=== PATIENT | female | born 1945 | race American Indian/Alaskan Native ===

== ENCOUNTER → 2016-05-24 | Outpatient (CLI) | payer MEDICARE, BC, OTHER ==
--- NOTE | 2016-05-24 16:17 | US ---
EXAMINATION: Limited soft tissue ultrasound of the neck HISTORY: Pain COMPARISON: CT dated 11/06/2014 TECHNIQUE: Grayscale and color Doppler images obtained within the region of concern in the left post erior auricular region. FINDINGS/IMPRESSION: There is no abnormal mass or fluid collection noted within the region of concern. No skin thickenin g or abnormal color Doppler flow identified.
== END ==
LOC: MW.US 10:30
PROVIDERS: ATTEND Nurse Practitioner Family
DX: R52 Pain, unspecified (principal)
CPT/HCPCS: 76536-LT

== ENCOUNTER 2016-11-20 21:39 | Inpatient (IN) | payer MEDICARE, BC, OTHER ==
[2016-11-20] MEDS ORDERED: Sodium Chloride 0.9% 1,000 ML IV ONE (22:25)
--- NOTE | 2016-11-20 22:34 | EDM.PDOC ---
ED HPI GENERAL MEDICAL PROBLEM - General Chief Complaint: General Stated Complaint: tremor, decreased po intake Time Seen by Provider: 11/20/16 21:52 Source of Information: Reports: Patient, Family History Limitations: Reports: No Limitations - History of Present Illness INITIAL COMMENTS - FREE TEXT/NARRATIVE: HISTORY AND PHYSICAL: History of present illness: [71-year-old female with a history of Alzheimer's disease on Aricept , with a history of tremor, now brought in for evaluation of recurrent nausea, inability to tolerate by mouth food and fluids for days. family states she gets nausea when she thinks about food. patient has no productive cough or fever. She has no chest pain or shortness of breath. She denies abdominal pain or distention.She has normal bowel and bladder habits.no focal weakness Review of systems: As per history of present illness and below otherwise all systems reviewed and negative. Past medical history: As per history of present illness and as reviewed below otherwise noncontributory. Surgical history: As per history of present illness and as reviewed below otherwise noncontributory. Social history: No reported history of drug or alcohol abuse. Family history: As per history of present illness and as reviewed below otherwise noncontributory. Physical exam:chronically weak appearing 71-year-old female in no acute distress alert communicative cooperative and appropriate HEENT: Atraumatic, normocephalic, pupils reactive, negative for conjunctival pallor or scleral icterus, mucous membranes mildly dry, throat clear, neck supple, nontender, trachea midline. Lungs: Clear to auscultation, breath sounds equal bilaterally, chest nontender. Heart: S1S2, regular, negative for clicks, rubs, or JVD. Abdomen: Soft, nondistended, nontender.normal bowel sounds Negative for masses or hepatosplenomegaly. Negative for costovertebral tenderness. Pelvis: Stable nontender. Genitourinary: Deferred. Rectal: Deferred. Extremities: Atraumatic, negative for cords or calf pain. Neurovascular unremarkable. Neuro: Awake, alert, oriented. Cranial nerves II through XII unremarkable. Cerebellum unremarkable. Motor and sensory unremarkable throughout. Exam nonfocal.patient with intermittent resting tremor Diagnostics: [EKG with normal sinus rhythm at 51 normal axis no STEM Iinterpreted by me Chest x-ray chronic changes no acute disease interpreted by me kUB unremarkable with no evidence of obstruction. Interpreted by me] Therapeutics: [IV fluids and Zofran administered] Impression: [] Plan: [signs and symptoms consistent with chronic tremor which waxes and wanes. Patient appears to have an anxiety component to her presentation. She has no actual vomitingbut spits in emesis pouch. Vital signs are stable and unremarkableHemoglobin 10.2 but this is improved from 9.0 on November 06. Her sodium is mildly low at 1:30 but this is down from 142 on 06 November. Potassium is 5.2 mildly elevated, CO2 is 20 consistent with very mild metabolic acidosis. Creatinine stable at 1.7 unchanged from November 05. Results discussed with length at family and they feel it is impossible for the patient to return home because sheis unable to tolerate by mouth intake. Discussed withDr. 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 Treatments LINE ANALYST: Reports: IV/IO Other Treatments LINE ANALYST: g. 18 left AC chest & left foot Pain Score (Numeric/FACES): 5 - Related Data Allergies Allergy/AdvReac Type Severity Reaction Status Date / Time Dairy Products Allergy Diarrhea Verified 11/20/16 21:51 meperidine HCl [From Demerol] Allergy Hallucinati Verified 11/20/16 21:51 ons IVP Dye Allergy Hives Uncoded 11/20/16 21:51 Home Meds: Home Meds Acetaminophen with Codeine [Acetamin-Codein 300-30 mg/12.5] 1 tab PO TID [History] Cyanocobalamin (Vitamin B12) [Vitamin B12] 1 injection IM ASDIRECTED 11/20/16 [ History] Donepezil [Aricept] 10 mg PO BEDTIME 11/20/16 [History] Esomeprazole Magnesium [Nexium 24Hr] 22.3 mg PO DAILY 11/20/16 [History] Estradiol Valerate 20 mg IM ASDIRECTED 11/20/16 [History] Furosemide 20 mg PO DAILY 11/20/16 [History] Latanoprost [Latanoprost] 1 drop EYEBOTH DAILY 11/20/16 [History] Lisinopril [Lisinopril] 1 tab PO DAILY 11/20/16 [History] Memantine HCl 5 mg PO BEDTIME 11/20/16 [History] Mirtazapine 15 mg PO BEDTIME 11/20/16 [History] Past Medical History HEENT History: Reports: Glaucoma Cardiovascular History: Reports: Hypertension Respiratory History: Reports: None Other Respiratory History: 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 Dimentia Psychiatric History: Reports: Anxiety, Depression Other Psychiatric History: hx: situational depression Endocrine/Metabolic History: Reports: Diabetes, Type II Hematologic History: Reports: None Immunologic History: Reports: None Oncologic (Cancer) History: Reports: None Dermatologic History: Reports: None - Past Surgical History HEENT Surgical History: Reports: None Other Female Surgeries/Procedures: Return to surgery post hysterectomy due to "clot formation" Other Musculoskeletal Surgeries/Procedures:: Left Rotator Cuff Repair Social & Family History - Family History Family Medical History: Noncontributory - Tobacco Use Smoking Status *Q: Former Smoker Years of Tobacco use: 15 Used Tobacco, but Quit: No Month Tobacco Last Used: 2003 - Caffeine Use Caffeine Use: Reports: Coffee - Recreational Drug Use Recreational Drug Use: No Drug Use in Last 12 Months: No ED ROS GENERAL - Review of Systems Review Of Systems: See Below (history of present illness) ED EXAM, GENERAL - Physical Exam Exam: See Below (history of present illness) Course - Vital Signs Last Recorded V/S: Last Vital Signs Temp 36.3 C 11/21/16 04:00 Pulse 54 L 11/21/16 04:00 Resp 16 11/21/16 04:00 BP 126/49 L 11/21/16 04:00 Pulse Ox 92 L 11/21/16 04:00 - Orders/Labs/Meds Orders: Active Orders 24 hr Category Date Time Status Peripheral IV Care [RC] . DIRECTED Care 11/20/16 22:25 Active Chest 1V Frontal [CR] Stat Exams 11/20/16 22:25 Taken Peripheral IV Insertion Adult [OM.PC] Stat Oth 11/20/16 22:25 Ordered Medication Orders Sodium Chloride (Normal Saline) 1,000 mls @ 125 mls/hr IV STAT [facility] Last Admin: 11/21/16 00:33 Dose: 125 mls/hr Sodium Chloride (Normal Saline) 1,000 mls @ 125 mls/hr IV ASDIRECTED [facility] Insulin Aspart (Novolog) 0 unit SUBCUT TIDAC NAEL PRN Reason: Protocol Ondansetron HCl (Zofran) 4 mg IVPUSH Q3H PRN PRN Reason: Nausea/Vomiting Labs: Laboratory Tests 11/20/16 11/20/16 11/20/16 Range/Units 22:15 22:37 22:37 WBC 5.64 (4.0-11.0) K/uL RBC 3.42 L (4.30-5.90) M/uL Hgb 10.2 L (12.0-16.0) g/dL Hct 30.1 L (36.0-46.0) % MCV 88.0 (80.0-98.0) fL MCH 29.8 (27.0-32.0) pg MCHC 33.9 (31.0-37.0) g/dL RDW Std Deviation 41.8 (28.0-62.0) fl RDW Coeff of Dyan 13 (11.0-15.0) % Plt Count 194 (150-400) K/uL MPV 10.30 (7.40-12.00) fL Neut % (Auto) 56.6 (48.0-80.0) % Lymph % (Auto) 31.7 (16.0-40.0) % [place] % (Auto) 7.8 (0.0-15.0) % Eos % (Auto) 3.0 (0.0-7.0) % Baso % (Auto) 0.9 (0.0-1.5) % Neut # (Auto) 3.2 (1.4-5.7) K/uL Lymph # (Auto) 1.8 (0.6-2.4) K/uL [place] # (Auto) 0.4 (0.0-0.8) K/uL Eos # (Auto) 0.2 (0.0-0.7) K/uL Baso # (Auto) 0.1 (0.0-0.1) K/uL Nucleated RBC % 0.0 /100WBC Nucleated RBCs # 0 K/uL Sodium 130 L (136-146) mmol/L Potassium 5.2 H (3.5-5.1) mmol/L Chloride 101 (98-110) mmol/L Carbon Dioxide 20 L (21-31) mmol/L BUN 23 (6.0-23.0) mg/dL Creatinine 1.7 H (0.6-1.5) mg/dL Est Cr Clr Drug Dosing 24.38 mL/min Estimated GFR (MDRD) 29.5 ml/min Glucose 86 (60-110) mg/dL Calcium 9.2 (8.8-10.8) mg/dL Total Bilirubin 0.5 (0.1-1.5) mg/dL AST 17 (5-40) IU/L ALT 11 (8-54) IU/L Alkaline Phosphatase 65 (40-150) Troponin I (0.0-0.29) NG/ML Total Protein 7.0 (6.0-8.0) g/dL Albumin 3.9 (3.4-4.8) g/dL Globulin 3.1 (2.0-3.5) g/dL Albumin/Globulin Ratio 1.3 (1.3-2.8) TSH 3rd Generation 2.63 (0.47-5.0) uIU/mL Urine Color YELLOW Urine Appearance CLEAR Urine pH 7.5 (5.0-8.0) Ur Specific [place] 1.010 (1.001-1.035) Urine Protein NEGATIVE (NEGATIVE) mg/dL Urine Glucose (UA) NEGATIVE (NEGATIVE) mg/dL Urine Ketones NEGATIVE (NEGATIVE) mg/dL Urine Occult Blood NEGATIVE (NEGATIVE) Urine Nitrite NEGATIVE (NEGATIVE) Urine Bilirubin NEGATIVE (NEGATIVE) Urine Urobilinogen 0.2 (<2.0) EU/dL Ur Leukocyte Esterase NEGATIVE (NEGATIVE) Urine RBC 0-1 (0-2/HPF) Urine WBC 0-1 (0-5/HPF) Ur Epithelial Cells OCCASIONAL (NONE-FEW) Urine Bacteria RARE (NEGATIVE) 11/20/16 Range/Units 22:37 WBC (4.0-11.0) K/uL RBC (4.30-5.90) M/uL Hgb (12.0-16.0) g/dL Hct (36.0-46.0) % MCV (80.0-98.0) fL MCH (27.0-32.0) pg MCHC (31.0-37.0) g/dL RDW Std Deviation (28.0-62.0) fl RDW Coeff of Dyan (11.0-15.0) % Plt Count (150-400) K/uL MPV (7.40-12.00) fL Neut % (Auto) (48.0-80.0) % Lymph % (Auto) (16.0-40.0) % [place] % (Auto) (0.0-15.0) % Eos % (Auto) (0.0-7.0) % Baso % (Auto) (0.0-1.5) % Neut # (Auto) (1.4-5.7) K/uL Lymph # (Auto) (0.6-2.4) K/uL [place] # (Auto) (0.0-0.8) K/uL Eos # (Auto) (0.0-0.7) K/uL Baso # (Auto) (0.0-0.1) K/uL Nucleated RBC % /100WBC Nucleated RBCs # K/uL Sodium (136-146) mmol/L Potassium (3.5-5.1) mmol/L Chloride (98-110) mmol/L Carbon Dioxide (21-31) mmol/L BUN (6.0-23.0) mg/dL Creatinine (0.6-1.5) mg/dL Est Cr Clr Drug Dosing mL/min Estimated GFR (MDRD) ml/min Glucose (60-110) mg/dL Calcium (8.8-10.8) mg/dL Total Bilirubin (0.1-1.5) mg/dL AST (5-40) IU/L ALT (8-54) IU/L Alkaline Phosphatase (40-150) Troponin I < 0.10 (0.0-0.29) NG/ML Total Protein (6.0-8.0) g/dL Albumin (3.4-4.8) g/dL Globulin (2.0-3.5) g/dL Albumin/Globulin Ratio (1.3-2.8) TSH 3rd Generation (0.47-5.0) uIU/mL Urine Color Urine Appearance Urine pH (5.0-8.0) Ur Specific [place] (1.001-1.035) Urine Protein (NEGATIVE) mg/dL Urine Glucose (UA) (NEGATIVE) mg/dL Urine Ketones (NEGATIVE) mg/dL Urine Occult Blood (NEGATIVE) Urine Nitrite (NEGATIVE) Urine Bilirubin (NEGATIVE) Urine Urobilinogen (<2.0) EU/dL Ur Leukocyte Esterase (NEGATIVE) Urine RBC (0-2/HPF) Urine WBC (0-5/HPF) Ur Epithelial Cells (NONE-FEW) Urine Bacteria (NEGATIVE) Meds: Medications Generic Name Dose Route Start Last Admin Trade Name Freq PRN Reason Stop Dose Admin Sodium Chloride 1,000 mls @ 125 mls/hr 11/21/16 00:30 11/21/16 00:33 Normal Saline IV 125 mls/hr STAT NAEL Administration Sodium Chloride 1,000 mls @ 125 mls/hr 11/21/16 08:30 Normal Saline IV ASDIRECTED NAEL Insulin Aspart 0 unit 11/21/16 07:30 Novolog SUBCUT TIDAC [facility] Protocol Ondansetron HCl 4 mg 11/21/16 01:32 Zofran IVPUSH Q3H PRN Nausea/Vomiting Discontinued Medications Generic Name Dose Route Start Last Admin Trade Name Freq PRN Reason Stop Dose Admin Sodium Chloride 1,000 mls @ 999 mls/hr 11/20/16 22:25 11/20/16 22:48 Normal Saline IV 11/20/16 23:25 999 mls/hr .Bolus ONE Administration Sodium Chloride 1,000 mls @ 125 mls/hr 11/21/16 01:31 11/21/16 02:35 Normal Saline IV 11/21/16 09:30 Not Given ASDIRECTED ONE Lorazepam 0.5 mg 11/21/16 00:14 11/21/16 00:33 Ativan IVPUSH 11/21/16 00:15 0.5 mg ONETIME ONE Administration Ondansetron HCl 4 mg 11/20/16 23:37 11/20/16 23:48 Zofran IVPUSH 11/20/16 23:38 4 mg ONETIME ONE Administration Departure - Departure Time of Disposition: 04:00 Disposition: Refer to Observation Condition: Fair Clinical Impression: Metabolic acidosis, Hyponatremia, Intractable nausea and vomiting - Discharge Information - My Orders Last 24 Hours: My Active Orders 11/20/16 22:25 Peripheral IV Care [RC] . DIRECTED Chest 1V Frontal [CR] Stat Peripheral IV Insertion Adult [OM.PC] Stat - Assessment/Plan Last 24 Hours: My Active Orders 11/20/16 22:25 Peripheral IV Care [RC] . DIRECTED Chest 1V Frontal [CR] Stat Peripheral IV Insertion Adult [OM.PC] Stat
[2016-11-20] MEDS ORDERED: Ondansetron 4 MG/2 ML SDV IVPUSH ONE (23:37)
[2016-11-21] MEDS ORDERED: LORazepam 2 MG/ML MDV IVPUSH ONE (00:14)
[2016-11-21] MEDS: Sodium Chloride 0.9% 1,000 ML IV SCH ×3 (00:33→16:45)
[2016-11-21] MEDS ORDERED: Sodium Chloride 0.9% 1,000 ML IV ONE (01:31)
[2016-11-21] MEDS ORDERED: Ondansetron 4 MG/2 ML SDV IVPUSH PRN (01:32)
[2016-11-21] MEDS ORDERED: Sodium Chloride 0.9% 1,000 ML IV SCH (08:30)
[2016-11-21] MEDS: Insulin Aspart 100 Units/ML 3 ML Pen SUBCUT SCH ×3 (09:24→17:17)
--- NOTE | 2016-11-21 14:12 | PCM.HP ---
H&P History of Present Illness - General Date of Service: 11/21/16 Admit Problem/Dx: Admission Diagnosis/Problem Admission Diagnosis/Problem Hyponatremia Source of Information: Patient History Limitations: Reports: No Limitations - History of Present Illness Initial Comments - Free Text/Narative: 71 yo fm admitted for generalized weakness and tremors. Patient was brought in by family to ED. She was having ongoing tremors in the ED. Family and patient state that for the past 2 weeks she has not been feeling well. She has been weak , confused and has had no appetite. Even looking at food makes her want to vomit. After receiving fluids in ED she was doing much better. She was found to have hyponatremia. She also complains of epigastric and left flank pain. This pain has been going on for 2 weeks. SHe was being treated for some type of infection by her pcp where she was going in daily for rocephin shots. She sees Dr. Andres as her PCP. Patient is doing much better today. She has eaten 2 full meals without difficulty. Tremors also improving. She is still having suprapubic pain and left flank pain. chest & left foot Pain Score (Numeric/FACES): 5 - Related Data Allergies/Adverse Reactions: Allergies Allergy/AdvReac Type Severity Reaction Status Date / Time Dairy Products Allergy Diarrhea Verified 11/20/16 21:51 meperidine HCl [From Demerol] Allergy Hallucinati Verified 11/20/16 21:51 ons IVP Dye Allergy Hives Uncoded 11/20/16 21:51 Home Medications: Home Meds Acetaminophen with Codeine [Acetamin-Codein 300-30 mg/12.5] 1 tab PO TID [History] Cyanocobalamin (Vitamin B12) [Vitamin B12] 1 injection IM ASDIRECTED 11/20/16 [ History] Donepezil [Aricept] 10 mg PO BEDTIME 11/20/16 [History] Esomeprazole Magnesium [Nexium 24Hr] 22.3 mg PO DAILY 11/20/16 [History] Estradiol Valerate 20 mg IM ASDIRECTED 11/20/16 [History] Furosemide 20 mg PO DAILY 11/20/16 [History] Latanoprost [Latanoprost] 1 drop EYEBOTH DAILY 11/20/16 [History] Lisinopril [Lisinopril] 1 tab PO DAILY 11/20/16 [History] Memantine HCl 5 mg PO BEDTIME 11/20/16 [History] Mirtazapine 15 mg PO BEDTIME 11/20/16 [History] Past Medical History HEENT History: Reports: Glaucoma Cardiovascular History: Reports: Hypertension Respiratory History: Reports: None Other Respiratory History: Reports 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 Dimentia Psychiatric History: Reports: Anxiety, Depression Other Psychiatric History: hx: situational depression Endocrine/Metabolic History: Reports: Diabetes, Type II Hematologic History: Reports: None Immunologic History: Reports: None Oncologic (Cancer) History: Reports: None Dermatologic History: Reports: None - Infectious Disease History Infectious Disease History: Reports: Chicken Pox, Measles, Mumps - Past Surgical History HEENT Surgical History: Reports: None Other Female Surgeries/Procedures: Return to surgery post hysterectomy due to "clot formation" Other Musculoskeletal Surgeries/Procedures:: Left Rotator Cuff Repair Social & Family History - Family History Family Medical History: Noncontributory - Tobacco Use Smoking Status *Q: Former Smoker Years of Tobacco use: 15 Used Tobacco, but Quit: No Month Tobacco Last Used: 2003 Second Hand Smoke Exposure: No - Caffeine Use Caffeine Use: Reports: Coffee - Recreational Drug Use Recreational Drug Use: No Drug Use in Last 12 Months: No H&P Review of Systems - Review of Systems: Review Of Systems: See Below General: Reports: Weakness, Fatigue, Decreased Appetite HEENT: Reports: No Symptoms Pulmonary: Reports: No Symptoms Cardiovascular: Reports: No Symptoms Gastrointestinal: Reports: Abdominal Pain (suprapubic and left flank ) Genitourinary: Reports: Flank Pain (left flank pain ) Neurological: Reports: No Symptoms Exam - Exam Exam: See Below - Vital Signs Vital Signs: Last Vital Signs Temp 36.6 C 11/21/16 12:00 Pulse 52 L 11/21/16 12:00 Resp 16 11/21/16 12:00 BP 157/68 H 11/21/16 12:00 Pulse Ox 97 11/21/16 12:00 Weight: 73.8 kg - Exam General: Cooperative HEENT: Conjunctiva Clear, Pupils Equal, Pupils Reactive Neck: Supple, Trachea Midline, +2 Carotid Pulse wo Bruit Cardiovascular: Regular Rate, Regular Rhythm GI/Abdominal Exam: Other Extremities: Normal Inspection - Patient Data Lab Results Last 24 hrs: Laboratory Results - last 24 hr 11/21/16 11/21/16 11/21/16 Range/Units 05:00 05:00 06:41 WBC 5.44 (4.0-11.0) K/uL RBC 3.08 L (4.30-5.90) M/uL Hgb 9.2 L (12.0-16.0) g/dL Hct 27.2 L (36.0-46.0) % MCV 88.3 (80.0-98.0) fL MCH 29.9 (27.0-32.0) pg MCHC 33.8 (31.0-37.0) g/dL RDW Std Deviation 42.7 (28.0-62.0) fl RDW Coeff of Dyan 13 (11.0-15.0) % Plt Count 177 (150-400) K/uL MPV 10.60 (7.40-12.00) fL Neut % (Auto) 57.2 (48.0-80.0) % Lymph % (Auto) 31.6 (16.0-40.0) % [place] % (Auto) 7.7 (0.0-15.0) % Eos % (Auto) 2.9 (0.0-7.0) % Baso % (Auto) 0.6 (0.0-1.5) % Neut # (Auto) 3.1 (1.4-5.7) K/uL Lymph # (Auto) 1.7 (0.6-2.4) K/uL [place] # (Auto) 0.4 (0.0-0.8) K/uL Eos # (Auto) 0.2 (0.0-0.7) K/uL Baso # (Auto) 0.0 (0.0-0.1) K/uL Nucleated RBC % 0.0 /100WBC Nucleated RBCs # 0 K/uL Sodium 134 L (136-146) mmol/L Potassium 5.2 H (3.5-5.1) mmol/L Chloride 109 (98-110) mmol/L Carbon Dioxide 19 L (21-31) mmol/L BUN 20 (6.0-23.0) mg/dL Creatinine 1.5 (0.6-1.5) mg/dL Est Cr Clr Drug Dosing 27.62 mL/min Estimated GFR (MDRD) 34.0 ml/min Glucose 76 (60-110) mg/dL POC Glucose 68 (60-110) mg/dL Calcium 8.5 L (8.8-10.8) mg/dL Result Diagrams: 11/21/16 05:00 11/21/16 05:00 *Q Meaningful Use (ADM) - VTE *Q VTE Criteria *Q: - Stroke *Q Stroke Criteria *Q: - AMI *Q AMI Criteria *Q: Problem List Initiated/Reviewed/Updated: Yes Orders Last 24hrs: Active Orders 24 hr Category Date Time Status Patient Status [ADT] Routine ADT 11/21/16 13:36 Active Antiembolic Devices [RC] PER UNIT ROUTINE Care 11/21/16 13:39 Active Blood Glucose Check, Bedside [RC] TIDAC Care 11/21/16 07:00 Active Oxygen Therapy [RC] PRN Care 11/21/16 13:36 Active Up With Assistance [RC] ASDIRECTED Care 11/21/16 13:36 Active VTE/DVT Education [RC] PER UNIT ROUTINE Care 11/21/16 13:36 Active Vital Signs [RC] Q4H Care 11/21/16 13:36 Active ADA Diabetic [[place] [employer] Diet] [DIET Diet 11/21/16 Breakfast Active ] KUB [Abdomen 1V Flat] [CR] Routine Exams 11/21/16 03:03 Taken BASIC METABOLIC PANEL,BMP [CHEM] AM Lab 11/22/16 05:11 Ordered BASIC METABOLIC PANEL,BMP [CHEM] AM Lab 11/23/16 05:11 Ordered BASIC METABOLIC PANEL,BMP [CHEM] AM Lab 11/24/16 05:11 Ordered CBC WITH AUTO DIFF [HEME] AM Lab 11/22/16 05:11 Ordered CBC WITH AUTO DIFF [HEME] AM Lab 11/23/16 05:11 Ordered CBC WITH AUTO DIFF [HEME] AM Lab 11/24/16 05:11 Ordered Acetaminophen [Tylenol] Med 11/21/16 13:36 Active 650 mg PO Q4H PRN Enoxaparin [Lovenox] Med 11/22/16 09:00 Active 30 mg SUBCUT DAILY Insulin Aspart [NovoLOG] Med 11/21/16 07:30 Active See Protocol SUBCUT TIDAC Ondansetron [Zofran] Med 11/21/16 01:32 Active 4 mg IVPUSH Q3H PRN Sodium Chloride 0.9% [Normal Saline] 1,000 ml Med 11/21/16 08:30 Active IV ASDIRECTED Sodium Chloride 0.9% [Normal Saline] 1,000 ml Med 11/21/16 00:30 Active IV STAT Sequential Compression Device [OM.PC] Per Unit Routine Oth 11/21/16 13:38 Ordered Resuscitation Status Routine Resus Stat 11/21/16 13:36 Ordered Medication Orders Acetaminophen (Tylenol) 650 mg PO Q4H PRN PRN Reason: Pain (Mild 1-3)/fever Enoxaparin Sodium (Lovenox) 30 mg SUBCUT DAILY NAEL Sodium Chloride (Normal Saline) 1,000 mls @ 125 mls/hr IV STAT NAEL Last Admin: 11/21/16 09:03 Dose: 125 mls/hr Infusion: 11/21/16 08:33 Dose: 125 mls/hr Admin: 11/21/16 00:33 Dose: 125 mls/hr Sodium Chloride (Normal Saline) 1,000 mls @ 125 mls/hr IV ASDIRECTED NAEL Insulin Aspart (Novolog) 0 unit SUBCUT TIDAC NAEL PRN Reason: Protocol Last Admin: 11/21/16 11:50 Dose: Admin: 11/21/16 09:24 Dose: Ondansetron HCl (Zofran) 4 mg IVPUSH Q3H PRN PRN Reason: Nausea/Vomiting Assessment/Plan Comment:: 71 yo fm with history of [place] Dementia admitted for weakness and generalized tremors. Found to have Hyponatremia. Tremors and weakness resolved with IVF. Patient has left flank pain and suprapubic tenderness. 1. Weakness: on IVF. continue to administer IVF and monitor. 2. Hyponatremia: as per above 3. Suprapubic Tenderness: CT Abdomen/Pelvis after IVF for 1 day.
[2016-11-21] MEDS: Nystatin Susp 100,000 Unit/ML 60 ML Bottle PO SCH ×3 (17:15→17:32)
[2016-11-21] MEDS: Carboxymethylcellulose Sodium 0.5% Ophth Soln 0.4 ML UD Box of 30 EYEBOTH PRN (17:32)
[2016-11-21] MEDS ORDERED: Nystatin Susp 100,000 Unit/ML 5 ML UD Cup PO ONE (18:00)
[2016-11-21] MEDS: Mirtazapine 15 MG Tab PO SCH (21:04)
[2016-11-21] MEDS: Memantine 10 MG Tab PO SCH (21:04)
[2016-11-21] MEDS: Donepezil 10 MG Tab PO SCH (21:04)
[2016-11-21] MEDS: Latanoprost 0.005% Ophth Soln 2.5 ML Bottle EYEBOTH SCH (21:04)
[2016-11-22] MEDS: Nystatin Susp 100,000 Unit/ML 60 ML Bottle PO SCH ×3 (00:59→12:05)
[2016-11-22] MEDS: Sodium Chloride 0.9% 1,000 ML IV SCH (01:01)
[2016-11-22] MEDS ORDERED: Nystatin Susp 100,000 Unit/ML 5 ML UD Cup PO ONE (06:00)
[2016-11-22] MEDS: Insulin Aspart 100 Units/ML 3 ML Pen SUBCUT SCH (08:09)
[2016-11-22] MEDS ORDERED: Sodium Polystyrene Sulfonate 15 GM/60 ML Susp 60 ML Bot PO ONE (08:15)
[2016-11-22] MEDS: Enoxaparin 30 MG/0.3 ML Syringe SUBCUT SCH (08:48)
[2016-11-22] MEDS: Acetaminophen 325 MG Tab PO PRN (08:59)
[2016-11-22] MEDS: Carboxymethylcellulose Sodium 0.5% Ophth Soln 0.4 ML UD Box of 30 EYEBOTH PRN (09:00)
--- NOTE | 2016-11-22 09:04 | PCM.PN ---
- General Info Date of Service: 11/22/16 Admission Dx/Problem (Free Text): Admission Diagnosis/Problem Admission Diagnosis/Problem Hyponatremia Subjective Update: Feeling tired today, family has concerns regarding delirium through the night. She reports having some lower abdominal pain. Denies SOB or chest pain. Continues to not be eating much. Family has some concerns regarding tremors, BS noted to be 65. Will treat and monitor. Functional Status: Reports: Ambulating, Urinating - Review of Systems General: Reports: No Symptoms. Denies: Fever Pulmonary: Reports: No Symptoms. Denies: Shortness of Breath, Cough, Sputum Cardiovascular: Reports: No Symptoms. Denies: Chest Pain, Edema Gastrointestinal: Reports: Abdominal Pain, Decreased Appetite. Denies: Nausea, Vomiting Genitourinary: Reports: No Symptoms. Denies: Dysuria, Frequency, Burning Musculoskeletal: Denies: Neck Pain Psychiatric: Reports: No Symptoms - Patient Data Vitals - Most Recent: Last Vital Signs Temp 97.3 F 11/22/16 08:00 Pulse 54 L 11/22/16 08:00 Resp 22 H 11/22/16 08:00 BP 185/73 H 11/22/16 08:00 Pulse Ox 96 11/22/16 08:00 Weight - Most Recent: 73.8 kg I&O - Last 24 Hours: Intake & Output 11/21/16 11/22/16 11/22/16 22:59 06:59 14:59 Intake Total 1240 2139 Output Total 600 2050 Balance 640 89 Lab Results Last 24 Hours: Laboratory Results - last 24 hr 11/21/16 11/21/16 11/22/16 Range/Units 11:46 16:57 05:31 WBC 5.91 (4.0-11.0) K/uL RBC 2.99 L (4.30-5.90) M/uL Hgb 8.8 L (12.0-16.0) g/dL Hct 26.9 L (36.0-46.0) % MCV 90.0 (80.0-98.0) fL MCH 29.4 (27.0-32.0) pg MCHC 32.7 (31.0-37.0) g/dL RDW Std Deviation 43.9 (28.0-62.0) fl RDW Coeff of Dyan 13 (11.0-15.0) % Plt Count 171 (150-400) K/uL MPV 10.40 (7.40-12.00) fL Neut % (Auto) 62.0 (48.0-80.0) % Lymph % (Auto) 28.4 (16.0-40.0) % Brooke % (Auto) 6.8 (0.0-15.0) % Eos % (Auto) 2.5 (0.0-7.0) % Baso % (Auto) 0.3 (0.0-1.5) % Neut # (Auto) 3.7 (1.4-5.7) K/uL Lymph # (Auto) 1.7 (0.6-2.4) K/uL Brooke # (Auto) 0.4 (0.0-0.8) K/uL Eos # (Auto) 0.2 (0.0-0.7) K/uL Baso # (Auto) 0.0 (0.0-0.1) K/uL Nucleated RBC % 0.0 /100WBC Nucleated RBCs # 0 K/uL Sodium (136-146) mmol/L Potassium (3.5-5.1) mmol/L Chloride (98-110) mmol/L Carbon Dioxide (21-31) mmol/L BUN (6.0-23.0) mg/dL Creatinine (0.6-1.5) mg/dL Est Cr Clr Drug Dosing mL/min Estimated GFR (MDRD) ml/min Glucose (60-110) mg/dL POC Glucose 90 87 (60-110) mg/dL Calcium (8.8-10.8) mg/dL 11/22/16 11/22/16 Range/Units 05:31 06:18 WBC (4.0-11.0) K/uL RBC (4.30-5.90) M/uL Hgb (12.0-16.0) g/dL Hct (36.0-46.0) % MCV (80.0-98.0) fL MCH (27.0-32.0) pg MCHC (31.0-37.0) g/dL RDW Std Deviation (28.0-62.0) fl RDW Coeff of Dyan (11.0-15.0) % Plt Count (150-400) K/uL MPV (7.40-12.00) fL Neut % (Auto) (48.0-80.0) % Lymph % (Auto) (16.0-40.0) % Brooke % (Auto) (0.0-15.0) % Eos % (Auto) (0.0-7.0) % Baso % (Auto) (0.0-1.5) % Neut # (Auto) (1.4-5.7) K/uL Lymph # (Auto) (0.6-2.4) K/uL Brooke # (Auto) (0.0-0.8) K/uL Eos # (Auto) (0.0-0.7) K/uL Baso # (Auto) (0.0-0.1) K/uL Nucleated RBC % /100WBC Nucleated RBCs # K/uL Sodium 140 (136-146) mmol/L Potassium 5.7 H (3.5-5.1) mmol/L Chloride 118 H (98-110) mmol/L Carbon Dioxide 18 L (21-31) mmol/L BUN 19 (6.0-23.0) mg/dL Creatinine 1.3 (0.6-1.5) mg/dL Est Cr Clr Drug Dosing 31.87 mL/min Estimated GFR (MDRD) 40.2 ml/min Glucose 72 (60-110) mg/dL POC Glucose 68 (60-110) mg/dL Calcium 8.3 L (8.8-10.8) mg/dL Med Orders - Current: Current Medications Acetaminophen (Tylenol) 650 mg PO Q4H PRN PRN Reason: Pain (Mild 1-3)/fever Last Admin: 11/22/16 08:59 Dose: 650 mg Artificial Tears (Refresh Plus 0.5%) 0 each EYEBOTH ASDIRECTED PRN PRN Reason: DRY EYES Last Admin: 11/22/16 09:00 Dose: 1 drop Donepezil HCl (Aricept) 10 mg PO BEDTIME [facility] Last Admin: 11/21/16 21:04 Dose: 10 mg Enoxaparin Sodium (Lovenox) 30 mg SUBCUT DAILY [facility] Last Admin: 11/22/16 08:48 Dose: 30 mg Sodium Chloride (Normal Saline) 1,000 mls @ 125 mls/hr IV STAT [facility]EL Last Admin: 10/02/17 01:01 Dose: 125 mls/hr Sodium Chloride (Normal Saline) 1,000 mls @ 125 mls/hr IV ASDIRECTED [facility] Insulin Aspart (Novolog) 0 unit SUBCUT TIDAC [facility] PRN Reason: Protocol Last Admin: 11/22/16 08:09 Dose: Not Given Latanoprost (Xalatan 0.005% Ophth Soln) 0 ml EYEBOTH BEDTIME [facility] Last Admin: 11/21/16 21:04 Dose: 1 drop Memantine (Namenda) 5 mg PO BEDTIME [facility] Last Admin: 11/21/16 21:04 Dose: 5 mg Mirtazapine (Remeron) 15 mg PO BEDTIME [facility] Last Admin: 11/21/16 21:04 Dose: 15 mg Nystatin (Mycostatin) 5 ml PO QID [facility] Last Admin: 11/22/16 06:20 Dose: 5 ml Ondansetron HCl (Zofran) 4 mg IVPUSH Q3H PRN PRN Reason: Nausea/Vomiting Discontinued Medications Sodium Chloride (Normal Saline) 1,000 mls @ 999 mls/hr IV .Bolus ONE Stop: 11/20/16 23:25 Last Admin: 11/20/16 22:48 Dose: 999 mls/hr Sodium Chloride (Normal Saline) 1,000 mls @ 125 mls/hr IV ASDIRECTED ONE Stop: 11/21/16 09:30 Last Admin: 11/21/16 02:35 Dose: Not Given Lorazepam (Ativan) 0.5 mg IVPUSH ONETIME ONE Stop: 11/21/16 00:15 Last Admin: 11/21/16 00:33 Dose: 0.5 mg Nystatin (Mycostatin) 1.5 ml PO DAILY [facility] Last Admin: 11/21/16 17:32 Dose: Not Given Ondansetron HCl (Zofran) 4 mg IVPUSH ONETIME ONE Stop: 11/20/16 23:38 Last Admin: 11/20/16 23:48 Dose: 4 mg Sodium Polystyrene Sulfonate (Kayexalate) 30 gm PO ONETIME ONE Stop: 11/22/16 08:16 Last Admin: 11/22/16 08:48 Dose: 30 gm - Exam General: Alert, Oriented, Cooperative, No Acute Distress, Other (does recall trying to climb out the window and getting on a stool. Shows some delirium. ) HEENT: Pupils Equal, Pupils Reactive, EOMI, Mucous Membr. Moist/[place] Lungs: Clear to Auscultation, Normal Respiratory Effort Cardiovascular: Regular Rate, Regular Rhythm GI/Abdominal Exam: Normal Bowel Sounds, Soft, No Mass, Tender (mid lower abdomen.). No: Distended Extremities: Normal Inspection, Normal Range of Motion, Non-Tender, No Pedal Edema, Normal Capillary Refill Neurological: No New Focal Deficit Psy/Mental Status: Alert, Normal Affect, Normal Mood - Problem List & Annotations (1) Diverticulitis SNOMED Code(s): 070503165 Code(s): K57.92 - DVTRCLI OF INTEST, PART UNSP, W/O PERF OR ABSCESS W/O BLEED Status: Acute Current Visit: Yes Qualifiers: Diverticulitis site: large intestine Diverticulitis bleeding: without bleeding Diverticulitis complication: without perforation or abscess Qualified Code(s): K57.32 - Diverticulitis of large intestine without perforation or abscess without bleeding (2) Decreased appetite SNOMED Code(s): 12082069 Code(s): R63.0 - ANOREXIA Status: Acute Current Visit: Yes (3) Hyperkalemia SNOMED Code(s): 45838152 Code(s): E87.5 - HYPERKALEMIA Status: Acute Current Visit: Yes (4) Hyponatremia SNOMED Code(s): 28715895 Code(s): E87.1 - HYPO-OSMOLALITY AND HYPONATREMIA Status: Acute Current Visit: Yes (5) Dementia SNOMED Code(s): 64449397 Code(s): F03.90 - UNSPECIFIED DEMENTIA WITHOUT BEHAVIORAL DISTURBANCE Status: Acute Current Visit: Yes (6) Alzheimer disease SNOMED Code(s): 75875143 Code(s): G30.9 - ALZHEIMER'S DISEASE, UNSPECIFIED Status: Chronic Current Visit: Yes Qualifiers: Alzheimer's disease onset: unspecified onset Dementia behavioral disturbance: without behavioral disturbance Qualified Code(s): G30.9 - Alzheimer's disease, unspecified; F02.80 - Dementia in other diseases classified elsewhere without behavioral disturbance; F02.80 - Dementia in other diseases classified elsewhere without behavioral disturbance; F02.80 - Dementia in other diseases classified elsewhere without behavioral disturbance - Problem List Review Problem List Initiated/Reviewed/Updated: Yes - My Orders Last 24 Hours: My Active Orders 11/22/16 08:19 Abdomen Pelvis wo Cont [CT] Routine 11/22/16 13:30 BMP [BASIC METABOLIC PANEL,BMP] [CHEM] Routine - Plan Plan:: 71 yo fm with history of Alzheimer, Dementia admitted for weakness and generalized tremors. Found to have Hyponatremia. Tremors and weakness resolved with IVF. Patient has left flank pain and suprapubic tenderness. 1. Weakness: on IVF. continue to administer IVF and monitor. Will order PT to 2. Hyponatremia: Resolved. 3. Hyperkalemia: 5.7, continue on telemetry. Kayelxalate 30 mg today, monitor this afternoon. 4. Suprapubic Tenderness: Continues, has hx of constipation. Has been on Miralax for last 2 weeks, with stools every other day. Abd/pelvis CT obtained today, revealed mild inflammatory stranding in the left pelvis in the sigmoid mesentery suggest mild inflammation or edema possibly related to early or recent diverticulitis, focal wall thickening involving the mid sigmoid colon is prominent, mass or polyp in this location cannot be excluded, colonscopy recommended. WIll start Flagyl and Cipro. Diet to [place]. 5. Hypoglycemia: Will stop Novolog, has not been given. Has hx of DM, no medication at home, diet controlled. Will give 1/2 amp D50 now and monitor. Continues to have poor appetite. Tremors increased with hypoglycemia, will monitor. Will start IVFs with D5 NS due to [place] diet and monitor BS. VTE prophylaxis: Lovenox. Dispo: Changed to inpatient status with diverticulitis diagnosis. Will need 2-4 days
[2016-11-22] MEDS ORDERED: 50% Dextrose in Water 50 ML Syringe IVPUSH ONE (10:46)
[2016-11-22] MEDS: NYSTATIN 100000 UNIT/ML PO SCH ×3 (12:02→20:23)
--- NOTE | 2016-11-22 14:14 | CR ---
EXAM DATE: 11/21/16 PATIENT'S AGE: 71 Patient: NAHEED JESSICA Facility: [place], [place] Site . Site : 1945 Study: XRay Chest [id number]/30/2017 10:52:38 PM Ordering Physician: Nawaf Wild Final Report: CHEST 2 VIEWS INDICATION: Chest pain COMPARISON: October 2014 IMPRESSION: Stable heart size and vascular pattern. Lungs are clear. No pneumothorax or pleural abnormality. No overall change Dictated by Antonino Lancaster MD @ Nov 20 2016 11:26PM (Electronic Signature) Report Signed by Proxy. SHEEBA
--- NOTE | 2016-11-22 14:29 | CR ---
EXAM DATE: 11/21/16 PATIENT'S AGE: 71 Patient: NAHEED JESSICA Facility: [place], [place] Site . Site : 1945 Study: XRay Abdomen [id number]/[id number] 4:21:30 AM Ordering Physician: Bryanna Mendoza Final Report: INDICATION: Nausea/Vomiting TECHNIQUE: Abdomen 2 view COMPARISON: March 25, 2011 FINDINGS: Bowel: Nonobstructive bowel-gas pattern. Soft tissues: Surgical clips in the right upper quadrant. No sign of soft tissue mass. No suspicious calcifications. Bones: Unremarkable for age. IMPRESSION: Nonobstructive bowel gas pattern. Dictated by Wilmer Barahona MD @ 11/21/2016 6:10:11 AM Dictated by: Wilmer Barahona MD @ 11/21/2016 06:11:53 (Electronic Signature) Report Signed by Proxy. [facility]OSPITALGalilea
[2016-11-22] MEDS: Ciprofloxacin in D5W 400 MG in Premix Bag 1 BAG IV SCH ×2 (14:55)
[2016-11-22] MEDS: Dextrose 5%-0.9% NaCl 1,000 ML IV SCH (15:05)
[2016-11-22] MEDS: metroNIDAZOLE/Normal Saline 500 MG in Premix Bag 1 BAG IV SCH ×2 (16:18→20:58)
--- NOTE | 2016-11-22 16:20 | CT ---
EXAM DATE: 11/22/16 PATIENT'S AGE: 71 Patient: NAHEED JESSICA Facility: [place], [place] Site . Site : 1945 Study: CT Abdomen/Pelvis [id number]/2017 10:30:19 AM Ordering Physician: Bryanna Mendoza Final Report: INDICATION: Lower abdominal pain. Technique: CT of the abdomen and pelvis performed without oral or IV contrast. Findings: Cholecystectomy. Osteopenia. Hemangioma L1 vertebral body on the left. The degenerative disc disease L4 interspace with disc bulging. Moderate diffuse irregular vascular calcifications. Splenic calcified granuloma. Mild interlobular septal thickening in the lung bases could be related to edema or inflammation. Mild fibrotic change in the lung bases. Small pericardial fusion. Tiny low-density lesion in the liver nonspecific. Mild subcutaneous edema. Small amount of fluid along the left kidney. Hysterectomy. Mild inflammatory stranding along the mid and proximal sigmoid colon in the sigmoid colonic mesentery suggesting mild inflammation or edema. The wall of the sigmoid colon in these locations is not significantly thickened except for a very focal area of wall thickening or soft tissue density in the mid sigmoid colon on image 103 extending for a length of 2-3 cm. Findings could be related to the sequela of recent or early evolving diverticulitis but are not specific. The focal density within the mid sigmoid colon causes the lumen to be not visible is more indeterminate. A mass or polyp in this location should be excluded. If there has not been recent colonic screening suggest correlation with colonic screening to exclude a mass or polyp in this region. Moderate amount of stool in the colon. Minimal stranding in the presacral region may be related to prior surgery. Small periumbilical fat containing hernia. Remainder negative. Impression: 1. Mild inflammatory stranding above in the left pelvis in the sigmoid mesentery suggest mild inflammation or and/or edema possibly related to early or recent diverticulitis. 2. Focal wall thickening involving the mid sigmoid colon is prominent without the lumen being seen in this location. Cannot exclude a polyp or mass in this location. Recommend correlation to colonic screening. 3. Hysterectomy. 4. Cholecystectomy. 5. Small fat containing periumbilical anterior abdominal wall hernia. Other findings as above. 6. Mild interlobular septal thickening in the lung bases consistent with inflammation or edema Please note that all CT scans at this facility use dose modulation, iterative reconstruction, and/or weight-based dosing when appropriate to reduce radiation dose to as low as reasonably achievable. Dictated by Jomar Posada MD @ Nov 22 2016 11:14AM (Electronic Signature) Report Signed by Proxy. MTDD
[2016-11-22] MEDS: Donepezil 10 MG Tab PO SCH (20:22)
[2016-11-22] MEDS: Mirtazapine 15 MG Tab PO SCH (20:22)
[2016-11-22] MEDS: Memantine 10 MG Tab PO SCH (20:22)
[2016-11-22] MEDS: Latanoprost 0.005% Ophth Soln 2.5 ML Bottle EYEBOTH SCH (20:24)
[2016-11-23] MEDS: Ciprofloxacin in D5W 400 MG in Premix Bag 1 BAG IV SCH ×4 (01:34→15:26)
[2016-11-23] MEDS: metroNIDAZOLE/Normal Saline 500 MG in Premix Bag 1 BAG IV SCH ×4 (03:42→21:38)
--- NOTE | 2016-11-23 08:01 | PCM.PN ---
- General Info Date of Service: 11/23/16 Admission Dx/Problem (Free Text): Admission Diagnosis/Problem Admission Diagnosis/Problem Hyponatremia Subjective Update: Priscila reports really good night. Bernie slept most of night and had no concerns. Bernie reports it felt really good to sleep good for once. Denies chest pain or palpitations. Continues to have some lower l sided abdominal pain. No N/ V. tolerating [place]. Functional Status: Reports: Pain Controlled, Tolerating Diet, Ambulating, Urinating - Review of Systems HEENT: Reports: No Symptoms. Denies: Headaches, Sore Throat, Visual Changes Pulmonary: Reports: No Symptoms. Denies: Shortness of Breath Cardiovascular: Reports: No Symptoms. Denies: Chest Pain, Palpitations, Edema Gastrointestinal: Reports: Abdominal Pain (L lower quadrant). Denies: Difficulty Swallowing, Nausea, Vomiting Genitourinary: Reports: No Symptoms. Denies: Dysuria, Frequency, Incontinence Neurological: Reports: Other (less delirium noted overnight per family.) Psychiatric: Reports: No Symptoms - Patient Data Vitals - Most Recent: Last Vital Signs Temp 98.6 F 11/23/16 04:00 Pulse 65 11/23/16 04:00 Resp 16 11/23/16 04:00 BP 152/70 H 11/23/16 04:00 Pulse Ox 94 L 11/23/16 04:00 Weight - Most Recent: 73.8 kg I&O - Last 24 Hours: Intake & Output 11/22/16 11/23/16 11/23/16 22:59 06:59 14:59 Intake Total 1220 580 Output Total 800 1200 Balance 420 -620 Lab Results Last 24 Hours: Laboratory Results - last 24 hr 11/22/16 11/22/16 11/23/16 Range/Units 16:33 20:57 04:39 WBC (4.0-11.0) K/uL RBC (4.30-5.90) M/uL Hgb (12.0-16.0) g/dL Hct (36.0-46.0) % MCV (80.0-98.0) fL MCH (27.0-32.0) pg MCHC (31.0-37.0) g/dL RDW Std Deviation (28.0-62.0) fl RDW Coeff of Dyan (11.0-15.0) % Plt Count (150-400) K/uL MPV (7.40-12.00) fL Neut % (Auto) (48.0-80.0) % Lymph % (Auto) (16.0-40.0) % Brown % (Auto) (0.0-15.0) % Eos % (Auto) (0.0-7.0) % Baso % (Auto) (0.0-1.5) % Neut # (Auto) (1.4-5.7) K/uL Lymph # (Auto) (0.6-2.4) K/uL Brown # (Auto) (0.0-0.8) K/uL Eos # (Auto) (0.0-0.7) K/uL Baso # (Auto) (0.0-0.1) K/uL Nucleated RBC % /100WBC Nucleated RBCs # K/uL Sodium (136-146) mmol/L Potassium (3.5-5.1) mmol/L Chloride (98-110) mmol/L Carbon Dioxide (21-31) mmol/L BUN (6.0-23.0) mg/dL Creatinine (0.6-1.5) mg/dL Est Cr Clr Drug Dosing mL/min Estimated GFR (MDRD) ml/min Glucose (60-110) mg/dL POC Glucose 79 80 74 (60-110) mg/dL Calcium (8.8-10.8) mg/dL 11/23/16 11/23/16 11/23/16 Range/Units 05:58 05:58 06:14 WBC 7.51 (4.0-11.0) K/uL RBC 2.95 L (4.30-5.90) M/uL Hgb 8.6 L (12.0-16.0) g/dL Hct 26.7 L (36.0-46.0) % MCV 90.5 (80.0-98.0) fL MCH 29.2 (27.0-32.0) pg MCHC 32.2 (31.0-37.0) g/dL RDW Std Deviation 45.0 (28.0-62.0) fl RDW Coeff of Dyan 14 (11.0-15.0) % Plt Count 160 (150-400) K/uL MPV 10.00 (7.40-12.00) fL Neut % (Auto) 74.1 (48.0-80.0) % Lymph % (Auto) 19.2 (16.0-40.0) % Brown % (Auto) 4.0 (0.0-15.0) % Eos % (Auto) 2.4 (0.0-7.0) % Baso % (Auto) 0.3 (0.0-1.5) % Neut # (Auto) 5.6 (1.4-5.7) K/uL Lymph # (Auto) 1.4 (0.6-2.4) K/uL Brown # (Auto) 0.3 (0.0-0.8) K/uL Eos # (Auto) 0.2 (0.0-0.7) K/uL Baso # (Auto) 0.0 (0.0-0.1) K/uL Nucleated RBC % 0.0 /100WBC Nucleated RBCs # 0 K/uL Sodium 139 (136-146) mmol/L Potassium 4.7 (3.5-5.1) mmol/L Chloride 117 H (98-110) mmol/L Carbon Dioxide 18 L (21-31) mmol/L BUN 14 (6.0-23.0) mg/dL Creatinine 1.3 (0.6-1.5) mg/dL Est Cr Clr Drug Dosing 31.87 mL/min Estimated GFR (MDRD) 40.2 ml/min Glucose 82 (60-110) mg/dL POC Glucose 77 (60-110) mg/dL Calcium 8.1 L (8.8-10.8) mg/dL Med Orders - Current: Current Medications Acetaminophen (Tylenol) 650 mg PO Q4H PRN PRN Reason: Pain (Mild 1-3)/fever Last Admin: 11/22/16 08:59 Dose: 650 mg Artificial Tears (Refresh Plus 0.5%) 0 each EYEBOTH ASDIRECTED PRN PRN Reason: DRY EYES Last Admin: 11/22/16 09:00 Dose: 1 drop Donepezil HCl (Aricept) 10 mg PO BEDTIME [facility] Last Admin: 11/22/16 20:22 Dose: 10 mg Enoxaparin Sodium (Lovenox) 30 mg SUBCUT DAILY [facility] Last Admin: 11/22/16 08:48 Dose: 30 mg Metronidazole 500 mg/ Premix 100 mls @ 100 mls/hr IV Q6H [facility] Last Admin: 11/23/16 03:42 Dose: 100 mls/hr Ciprofloxacin/Dextrose 400 mg/ (Premix) 200 mls @ 200 mls/hr IV Q12H [facility] Last Admin: 11/23/16 01:34 Dose: 200 mls/hr Dextrose/Sodium Chloride (Dextrose 5%-Normal Saline) 1,000 mls @ 75 mls/hr IV ASDIRECTED [facility] Last Admin: 11/22/16 15:05 Dose: 75 mls/hr Latanoprost (Xalatan 0.005% Ophth Soln) 0 ml EYEBOTH BEDTIME [facility] Last Admin: 11/22/16 20:24 Dose: 1 drop Memantine (Namenda) 5 mg PO BEDTIME [facility] Last Admin: 11/22/16 20:22 Dose: 5 mg Mirtazapine (Remeron) 15 mg PO BEDTIME [facility] Last Admin: 11/22/16 20:22 Dose: 15 mg Ondansetron HCl (Zofran) 4 mg IVPUSH Q3H PRN PRN Reason: Nausea/Vomiting Last Admin: 11/22/16 12:33 Dose: 4 mg Nystatin 100,000 (Units/Ml) 0 each PO QIDACANDBED [facility] Last Admin: 11/22/16 20:23 Dose: 5 each Discontinued Medications Dextrose/Water (Dextrose 50% In Water) 25 ml IVPUSH ONETIME ONE Stop: 11/22/16 10:47 Last Admin: 11/22/16 11:01 Dose: 25 ml Sodium Chloride (Normal Saline) 1,000 mls @ 999 mls/hr IV .Bolus ONE Stop: 11/20/16 23:25 Last Admin: 11/20/16 22:48 Dose: 999 mls/hr Sodium Chloride (Normal Saline) 1,000 mls @ 125 mls/hr IV STAT [facility] Last Admin: 11/22/16 01:01 Dose: 125 mls/hr Sodium Chloride (Normal Saline) 1,000 mls @ 125 mls/hr IV ASDIRECTED ONE Stop: 11/21/16 09:30 Last Admin: 11/21/16 02:35 Dose: Not Given Sodium Chloride (Normal Saline) 1,000 mls @ 125 mls/hr IV ASDIRECTED [facility] Last Admin: 11/22/16 09:23 Dose: 125 mls/hr Insulin Aspart (Novolog) 0 unit SUBCUT TIDAC [facility] PRN Reason: Protocol Last Admin: 11/22/16 08:09 Dose: Not Given Lorazepam (Ativan) 0.5 mg IVPUSH ONETIME ONE Stop: 11/21/16 00:15 Last Admin: 11/21/16 00:33 Dose: 0.5 mg Nystatin (Mycostatin) 1.5 ml PO DAILY [facility] Last Admin: 11/21/16 17:32 Dose: Not Given Nystatin (Mycostatin) 5 ml PO QID [facility] Last Admin: 11/22/16 12:05 Dose: Not Given Nystatin (Mycostatin) 5 ml PO .STK-MED ONE Stop: 11/21/16 18:01 Nystatin (Mycostatin) 5 ml PO .STK-MED ONE Stop: 11/22/16 06:01 Ondansetron HCl (Zofran) 4 mg IVPUSH ONETIME ONE Stop: 11/20/16 23:38 Last Admin: 11/20/16 23:48 Dose: 4 mg Sodium Polystyrene Sulfonate (Kayexalate) 30 gm PO ONETIME ONE Stop: 11/22/16 08:16 Last Admin: 11/22/16 08:48 Dose: 30 gm - Exam Quality Assessment: DVT Prophylaxis General: Alert, Cooperative, No Acute Distress Neck: Supple Lungs: Clear to Auscultation, Normal Respiratory Effort Cardiovascular: Regular Rate, Regular Rhythm GI/Abdominal Exam: Normal Bowel Sounds, Soft, Tender (L lower quadrant.). No: Distended, Guarding, Rigid Extremities: Normal Inspection, Normal Range of Motion, Non-Tender, No Pedal Edema, Normal Capillary Refill Neurological: No New Focal Deficit Psy/Mental Status: Alert, Normal Affect, Normal Mood - Problem List & Annotations (1) Diverticulitis SNOMED Code(s): 669581962 Code(s): K57.92 - DVTRCLI OF INTEST, PART UNSP, W/O PERF OR ABSCESS W/O BLEED Status: Acute Current Visit: Yes Qualifiers: Diverticulitis site: large intestine Diverticulitis bleeding: without bleeding Diverticulitis complication: without perforation or abscess Qualified Code(s): K57.32 - Diverticulitis of large intestine without perforation or abscess without bleeding (2) Decreased appetite SNOMED Code(s): 33355773 Code(s): R63.0 - ANOREXIA Status: Acute Current Visit: Yes (3) Hyperkalemia SNOMED Code(s): 98152032 Code(s): E87.5 - HYPERKALEMIA Status: Acute Current Visit: Yes (4) Hyponatremia SNOMED Code(s): 63629903 Code(s): E87.1 - HYPO-OSMOLALITY AND HYPONATREMIA Status: Acute Current Visit: Yes (5) Dementia SNOMED Code(s): 08606972 Code(s): F03.90 - UNSPECIFIED DEMENTIA WITHOUT BEHAVIORAL DISTURBANCE Status: Acute Current Visit: Yes (6) Alzheimer disease SNOMED Code(s): 30236463 Code(s): G30.9 - ALZHEIMER'S DISEASE, UNSPECIFIED Status: Chronic Current Visit: Yes Qualifiers: Alzheimer's disease onset: unspecified onset Dementia behavioral disturbance: without behavioral disturbance Qualified Code(s): G30.9 - Alzheimer's disease, unspecified; F02.80 - Dementia in other diseases classified elsewhere without behavioral disturbance; F02.80 - Dementia in other diseases classified elsewhere without behavioral disturbance; F02.80 - Dementia in other diseases classified elsewhere without behavioral disturbance - Problem List Review Problem List Initiated/Reviewed/Updated: Yes - Plan Plan:: 71 yo fm with history of Alzheimer, Dementia admitted for weakness and generalized tremors. Found to have Hyponatremia. Tremors and weakness resolved with IVF. Patient has left flank pain and suprapubic tenderness. 1. Weakness: Will order PT to evaluate 2. Diverticulitis: Continues to have some pain, but slightly improved. Abd/ pelvis CT revealed mild inflammatory stranding in the left pelvis in the sigmoid mesentery suggest mild inflammation or edema possibly related to early or recent diverticulitis, focal wall thickening involving the mid sigmoid colon is prominent, mass or polyp in this location cannot be excluded, colonscopy recommended. Spoke with Bernie and daughters regarding follow up with surgeon in next few weeks for colonscopy. Continue with Flagyl and Cipro. Diet to [place]. 3. Hyperkalemia: 4.7 today. continue on telemetry. Will monitor. 4. Hypoglycemia: Stable, 70-90s. Continue D5 NS due to [place] diet and monitor BS. VTE prophylaxis: Lovenox. Dispo: Will need 2-3 days, pending improvement.
[2016-11-23] MEDS: Enoxaparin 30 MG/0.3 ML Syringe SUBCUT SCH (09:50)
[2016-11-23] MEDS: Dextrose 5%-0.9% NaCl 1,000 ML IV SCH (10:00)
[2016-11-23] MEDS: NYSTATIN 100000 UNIT/ML PO SCH ×4 (10:01→21:33)
[2016-11-23] MEDS: Carboxymethylcellulose Sodium 0.5% Ophth Soln 0.4 ML UD Box of 30 EYEBOTH PRN (15:32)
[2016-11-23] MEDS: Donepezil 10 MG Tab PO SCH (21:32)
[2016-11-23] MEDS: Mirtazapine 15 MG Tab PO SCH (21:32)
[2016-11-23] MEDS: Memantine 10 MG Tab PO SCH (21:32)
[2016-11-23] MEDS: Latanoprost 0.005% Ophth Soln 2.5 ML Bottle EYEBOTH SCH (21:33)
[2016-11-24] MEDS: Acetaminophen 325 MG Tab PO PRN (01:03)
[2016-11-24] MEDS: Ciprofloxacin in D5W 400 MG in Premix Bag 1 BAG IV SCH ×2 (01:50)
[2016-11-24] MEDS: metroNIDAZOLE/Normal Saline 500 MG in Premix Bag 1 BAG IV SCH ×2 (03:09→09:27)
[2016-11-24] MEDS: NYSTATIN 100000 UNIT/ML PO SCH ×3 (06:49→14:14)
[2016-11-24] MEDS: Enoxaparin 30 MG/0.3 ML Syringe SUBCUT SCH (09:27)
[2016-11-24] MEDS: Carboxymethylcellulose Sodium 0.5% Ophth Soln 0.4 ML UD Box of 30 EYEBOTH PRN (09:49)
[2016-11-24 09:53] VITALS: BP 187/78
--- NOTE | 2016-11-24 10:08 | PCM.DCSUM1 ---
Discharge Summary - Hospital Course Brief History: 71 yo female with pmh of Alzheimer's dementia and diverticulosis presented to the ED for generalized weakness and tremors. She was having ongoing tremors in the ED. Family and patient state that for the past 2 weeks she has not been feeling well. She has been weak, confused and has had no appetite. Even looking at food makes her want to vomit. After receiving fluids in ED she was doing much better. She was found to have hyponatremia. She also complains of epigastric and left flank pain. This pain has been going on for 2 weeks. She was being treated for some type of infection by her pcp where she was going in daily for rocephin shots. She sees Dr. Andres as her PCP. Patient is doing much better today. She has eaten 2 full meals without difficulty. Tremors also improving. She is still having suprapubic pain and left flank pain. - Discharge Data Discharge Date: 11/24/16 Discharge Disposition: Home, Self-Care 01 Condition: Good - Discharge Diagnosis/Problem(s) (1) Diverticulitis SNOMED Code(s): 887911494 ICD Code: K57.92 - DVTRCLI OF INTEST, PART UNSP, W/O PERF OR ABSCESS W/O BLEED Status: Acute Qualifiers: Diverticulitis site: large intestine Diverticulitis bleeding: without bleeding Diverticulitis complication: without perforation or abscess Qualified Code(s): K57.32 - Diverticulitis of large intestine without perforation or abscess without bleeding (2) Decreased appetite SNOMED Code(s): 35738691 ICD Code: R63.0 - ANOREXIA Status: Acute (3) Hyperkalemia SNOMED Code(s): 93524509 ICD Code: E87.5 - HYPERKALEMIA Status: Acute (4) Hyponatremia SNOMED Code(s): 64346897 ICD Code: E87.1 - HYPO-OSMOLALITY AND HYPONATREMIA Status: Acute (5) Dementia SNOMED Code(s): 89525352 ICD Code: F03.90 - UNSPECIFIED DEMENTIA WITHOUT BEHAVIORAL DISTURBANCE Status: Acute (6) Alzheimer disease SNOMED Code(s): 55158586 ICD Code: G30.9 - ALZHEIMER'S DISEASE, UNSPECIFIED Status: Chronic Qualifiers: Alzheimer's disease onset: unspecified onset Dementia behavioral disturbance: without behavioral disturbance Qualified Code(s): G30.9 - Alzheimer's disease, unspecified; F02.80 - Dementia in other diseases classified elsewhere without behavioral disturbance; F02.80 - Dementia in other diseases classified elsewhere without behavioral disturbance; F02.80 - Dementia in other diseases classified elsewhere without behavioral disturbance - Patient Summary/Data Consults: Consultations 11/23/16 09:35 Consult to Physical Therapy [PT Evaluation and Treatment] [CONS] Routine 11/24/16 09:57 Consult to Principal Security Architect [CONS] Routine - Patient Instructions Diet: Diabetic Diet, GI Soft/Low Residue/Low Fiber Activity: As Tolerated Showering/Bathing: May Shower Notify Provider of: Fever, Increased Pain, Swelling and Redness, Drainage, Nausea and/or Vomiting - Discharge Plan Prescriptions/Med Rec: Ciprofloxacin HCl [Cipro] 500 mg PO BID #36 tablet metroNIDAZOLE [Flagyl] 500 mg PO Q8H #36 tablet Home Medications: Home Meds Acetaminophen with Codeine [Acetamin-Codein 300-30 mg/12.5] 1 tab PO TID [History] Cyanocobalamin (Vitamin B12) [Vitamin B12] 1 injection IM ASDIRECTED 11/20/16 [ History] Donepezil [Aricept] 10 mg PO BEDTIME 11/20/16 [History] Esomeprazole Magnesium [Nexium 24Hr] 22.3 mg PO DAILY 11/20/16 [History] Estradiol Valerate 20 mg IM ASDIRECTED 11/20/16 [History] Furosemide 20 mg PO DAILY 11/20/16 [History] Latanoprost 1 drop EYEBOTH BEDTIME 11/20/16 [History] Lisinopril 1 tab PO DAILY 11/20/16 [History] Memantine HCl 5 mg PO BEDTIME 11/20/16 [History] Mirtazapine 15 mg PO BEDTIME 11/20/16 [History] Carboxymethylcellulose Sodium [Refresh Tears] 1 drop EYEBOTH ASDIRECTED PRN 03/09 [History] Nystatin 5 ml PO QID 11/21/16 [History] Ciprofloxacin HCl [Cipro] 500 mg PO BID #36 tablet 11/24/16 [Rx] metroNIDAZOLE [Flagyl] 500 mg PO Q8H #36 tablet 11/24/16 [Rx] Patient Handouts: Diverticulitis, [id number], Hyponatremia, Hyperkalemia, [id number], Ciprofloxacin tablets, Metronidazole tablets or capsules Referrals: Annemarie Harris MD [Physician] - 12/07/16 1:45 pm Anjana Jeter MD [Physician] - 01/06/17 9:45 am Rafia Chan PA-C [Ordering Only Provider] - 12/06/16 11:00 am - Discharge Summary/Plan Comment DC Time >30 min.: No Discharge Summary/Plan Comment: Discharge Diagnoses Sigmoid Diverticulitis Generalized weakness-resolved Alzheimers Disease Dementia Bernie was admitted with concerns of generalized weakness and "tremors". She also had not been eating well for the past two weeks. Tremors were noted intermittenly and lessened as patient was treated for diverticulitis. The tremors do not appear neurologic in type. She is completely aware of them happening, and it appears more of a shaking or limbs back and forth. Patient remains alert during these episodes. Maybe related to abdominal pain. CT of abdomen/pelvis was obtain day 2 of admission and it noted mild inflammatory stranding in the left pelvis in the sigmoid mesentery suggest mild inflammation or edema possibly related to early or recent diverticulitis, focal wall thickening involving the mid sigmoid colon is prominent, mass or polyp in this location cannot be excluded, colonscopy recommended. She was treated with Ciprofloxacin and Flagyl. Tremors lessened as abdominal pain improved and patient started feeling more her self. She was evaluated by physical therapy, generalized weakness also improved. Family requested further workup of tremors, at this due to them, tremors, improving and her having none if 24+ hours we recommended follow up with PCP and their previously scheduled appointment with Dr. Jeter. She is requesting discharge home today, she is tolerating regular diet. Electrolyte imbalances corrected during stay. She will be sent home with Ciprofloxacin and Flagyl for another 12 days. She is to follow up with PCP, Dr. Jeter and a general surgeon due to diverticulitis on CT and recommendation for a colonoscopy. She and family were encouraged to return to ED or clinic if concerns should arise. - General Info Date of Service: 11/24/16 Admission Dx/Problem (Free Text: Admission Diagnosis/Problem Admission Diagnosis/Problem Hyponatremia Subjective Update: Doing well this morning, alert. Asking to be sent home. " I am going home no matter what" Denies any further abdominal pain and reports eating and tolerating her diet well. Family agrees. - Review of Systems General: Reports: No Symptoms. Denies: Fever Pulmonary: Reports: No Symptoms. Denies: Shortness of Breath Cardiovascular: Reports: No Symptoms. Denies: Chest Pain Gastrointestinal: Reports: No Symptoms, Flatus. Denies: Abdominal Pain, Nausea , Vomiting Neurological: Reports: No Symptoms - Patient Data Vitals - Most Recent: Last Vital Signs Temp 98.1 F 11/24/16 09:51 Pulse 52 L 11/24/16 09:51 Resp 16 11/24/16 09:51 BP 187/78 H 11/24/16 09:51 Pulse Ox 95 11/24/16 09:51 Weight - Most Recent: 73.8 kg I&O - Last 24 hours: Intake & Output 11/23/16 11/24/16 11/24/16 22:59 06:59 14:59 Intake Total 1863 720 Output Total 1450 1600 Balance 413 -880 Lab Results - Last 24 hrs: Laboratory Results - last 24 hr 11/23/16 11/23/16 11/23/16 Range/Units 12:11 17:11 20:47 WBC (4.0-11.0) K/uL RBC (4.30-5.90) M/uL Hgb (12.0-16.0) g/dL Hct (36.0-46.0) % MCV (80.0-98.0) fL MCH (27.0-32.0) pg MCHC (31.0-37.0) g/dL RDW Std Deviation (28.0-62.0) fl RDW Coeff of Dyan (11.0-15.0) % Plt Count (150-400) K/uL MPV (7.40-12.00) fL Neut % (Auto) (48.0-80.0) % Lymph % (Auto) (16.0-40.0) % [place] % (Auto) (0.0-15.0) % Eos % (Auto) (0.0-7.0) % Baso % (Auto) (0.0-1.5) % Neut # (Auto) (1.4-5.7) K/uL Lymph # (Auto) (0.6-2.4) K/uL [place] # (Auto) (0.0-0.8) K/uL Eos # (Auto) (0.0-0.7) K/uL Baso # (Auto) (0.0-0.1) K/uL Nucleated RBC % /100WBC Nucleated RBCs # K/uL Sodium (136-146) mmol/L Potassium (3.5-5.1) mmol/L Chloride (98-110) mmol/L Carbon Dioxide (21-31) mmol/L BUN (6.0-23.0) mg/dL Creatinine (0.6-1.5) mg/dL Est Cr Clr Drug Dosing mL/min Estimated GFR (MDRD) ml/min Glucose (60-110) mg/dL POC Glucose 75 67 96 (60-110) mg/dL Calcium (8.8-10.8) mg/dL 11/24/16 11/24/16 11/24/16 Range/Units 04:52 04:52 06:42 WBC 7.11 (4.0-11.0) K/uL RBC 2.93 L (4.30-5.90) M/uL Hgb 8.6 L (12.0-16.0) g/dL Hct 26.3 L (36.0-46.0) % MCV 89.8 (80.0-98.0) fL MCH 29.4 (27.0-32.0) pg MCHC 32.7 (31.0-37.0) g/dL RDW Std Deviation 45.3 (28.0-62.0) fl RDW Coeff of Dyan 14 (11.0-15.0) % Plt Count 155 (150-400) K/uL MPV 10.10 (7.40-12.00) fL Neut % (Auto) 66.5 (48.0-80.0) % Lymph % (Auto) 23.3 (16.0-40.0) % [place] % (Auto) 6.8 (0.0-15.0) % Eos % (Auto) 3.1 (0.0-7.0) % Baso % (Auto) 0.3 (0.0-1.5) % Neut # (Auto) 4.7 (1.4-5.7) K/uL Lymph # (Auto) 1.7 (0.6-2.4) K/uL [place] # (Auto) 0.5 (0.0-0.8) K/uL Eos # (Auto) 0.2 (0.0-0.7) K/uL Baso # (Auto) 0.0 (0.0-0.1) K/uL Nucleated RBC % 0.0 /100WBC Nucleated RBCs # 0 K/uL Sodium 138 (136-146) mmol/L Potassium 4.4 (3.5-5.1) mmol/L Chloride 116 H (98-110) mmol/L Carbon Dioxide 17 L (21-31) mmol/L BUN 11 (6.0-23.0) mg/dL Creatinine 1.3 (0.6-1.5) mg/dL Est Cr Clr Drug Dosing 31.87 mL/min Estimated GFR (MDRD) 40.2 ml/min Glucose 75 (60-110) mg/dL POC Glucose 73 (60-110) mg/dL Calcium 8.5 L (8.8-10.8) mg/dL 11/24/16 Range/Units 09:46 WBC (4.0-11.0) K/uL RBC (4.30-5.90) M/uL Hgb (12.0-16.0) g/dL Hct (36.0-46.0) % MCV (80.0-98.0) fL MCH (27.0-32.0) pg MCHC (31.0-37.0) g/dL RDW Std Deviation (28.0-62.0) fl RDW Coeff of Dyan (11.0-15.0) % Plt Count (150-400) K/uL MPV (7.40-12.00) fL Neut % (Auto) (48.0-80.0) % Lymph % (Auto) (16.0-40.0) % [place] % (Auto) (0.0-15.0) % Eos % (Auto) (0.0-7.0) % Baso % (Auto) (0.0-1.5) % Neut # (Auto) (1.4-5.7) K/uL Lymph # (Auto) (0.6-2.4) K/uL [place] # (Auto) (0.0-0.8) K/uL Eos # (Auto) (0.0-0.7) K/uL Baso # (Auto) (0.0-0.1) K/uL Nucleated RBC % /100WBC Nucleated RBCs # K/uL Sodium (136-146) mmol/L Potassium (3.5-5.1) mmol/L Chloride (98-110) mmol/L Carbon Dioxide (21-31) mmol/L BUN (6.0-23.0) mg/dL Creatinine (0.6-1.5) mg/dL Est Cr Clr Drug Dosing mL/min Estimated GFR (MDRD) ml/min Glucose (60-110) mg/dL POC Glucose 72 (60-110) mg/dL Calcium (8.8-10.8) mg/dL Med Orders - Current: Current Medications Acetaminophen (Tylenol) 650 mg PO Q4H PRN PRN Reason: Pain (Mild 1-3)/fever Last Admin: 11/24/16 01:03 Dose: 650 mg Artificial Tears (Refresh Plus 0.5%) 0 each EYEBOTH ASDIRECTED PRN PRN Reason: DRY EYES Last Admin: 11/24/16 09:49 Dose: 1 drop Donepezil HCl (Aricept) 10 mg PO BEDTIME [facility] Last Admin: 11/23/16 21:32 Dose: 10 mg Enoxaparin Sodium (Lovenox) 30 mg SUBCUT DAILY [facility] Last Admin: 11/24/16 09:27 Dose: 30 mg Metronidazole 500 mg/ Premix 100 mls @ 100 mls/hr IV Q6H [facility] Last Admin: 11/24/16 09:27 Dose: 100 mls/hr Ciprofloxacin/Dextrose 400 mg/ (Premix) 200 mls @ 200 mls/hr IV Q12H [facility] Last Admin: 11/24/16 01:50 Dose: 200 mls/hr Latanoprost (Xalatan 0.005% [facility] Sol) 0 ml EYEBOTH BEDTIME [facility] Last Admin: 11/23/16 21:33 Dose: 1 drop Memantine (Namenda) 5 mg PO BEDTIME [facility] Last Admin: 11/23/16 21:32 Dose: 5 mg Mirtazapine (Remeron) 15 mg PO BEDTIME [facility] Last Admin: 11/23/16 21:32 Dose: 15 mg Ondansetron HCl (Zofran) 4 mg IVPUSH Q3H PRN PRN Reason: Nausea/Vomiting Last Admin: 11/22/16 12:33 Dose: 4 mg Nystatin 100,000 (Units/Ml) 0 each PO QIDACANDBED [facility] Last Admin: 11/24/16 06:49 Dose: 1 each Discontinued Medications Dextrose/Water (Dextrose 50% In Water) 25 ml IVPUSH ONETIME ONE Stop: 11/22/16 10:47 Last Admin: 11/22/16 11:01 Dose: 25 ml Sodium Chloride (Normal Saline) 1,000 mls @ 999 mls/hr IV .Bolus ONE Stop: 11/20/16 23:25 Last Admin: 11/20/16 22:48 Dose: 999 mls/hr Sodium Chloride (Normal Saline) 1,000 mls @ 125 mls/hr IV STAT [facility] Last Admin: 11/22/16 01:01 Dose: 125 mls/hr Sodium Chloride (Normal Saline) 1,000 mls @ 125 mls/hr IV ASDIRECTED ONE Stop: 11/21/16 09:30 Last Admin: 11/21/16 02:35 Dose: Not Given Sodium Chloride (Normal Saline) 1,000 mls @ 125 mls/hr IV ASDIRECTED [facility] Last Admin: 11/22/16 09:23 Dose: 125 mls/hr Dextrose/Sodium Chloride (Dextrose 5%-Normal Saline) 1,000 mls @ 75 mls/hr IV ASDIRECTED [facility] Last Admin: 11/23/16 10:00 Dose: 75 mls/hr Insulin Aspart (Novolog) 0 unit SUBCUT TIDAC [facility] PRN Reason: Protocol Last Admin: 11/22/16 08:09 Dose: Not Given Lorazepam (Ativan) 0.5 mg IVPUSH ONETIME ONE Stop: 11/21/16 00:15 Last Admin: 11/21/16 00:33 Dose: 0.5 mg Nystatin (Mycostatin) 1.5 ml PO DAILY [facility] Last Admin: 11/21/16 17:32 Dose: Not Given Nystatin (Mycostatin) 5 ml PO QID [facility] Last Admin: 11/22/16 12:05 Dose: Not Given Nystatin (Mycostatin) 5 ml PO .STK-MED ONE Stop: 11/21/16 18:01 Nystatin (Mycostatin) 5 ml PO .STK-MED ONE Stop: 11/22/16 06:01 Ondansetron HCl (Zofran) 4 mg IVPUSH ONETIME ONE Stop: 11/20/16 23:38 Last Admin: 11/20/16 23:48 Dose: 4 mg Sodium Polystyrene Sulfonate (Kayexalate) 30 gm PO ONETIME ONE Stop: 11/22/16 08:16 Last Admin: 11/22/16 08:48 Dose: 30 gm - Exam General: Reports: Alert, Oriented, Cooperative, No Acute Distress Lungs: Reports: Clear to Auscultation, Normal Respiratory Effort Cardiovascular: Reports: Regular Rate, Regular Rhythm GI/Abdominal Exam: Normal Bowel Sounds, Soft, Non-Tender, No Organomegaly, No Distention Extremities: Normal Inspection, Normal Range of Motion, Non-Tender, No Pedal Edema, Normal Capillary Refill Neurological: Reports: No New Focal Deficit Psy/Mental Status: Reports: Alert, Normal Affect, Normal Mood *Q Meaningful Use (DIS) - VTE *Q VTE Criteria *Q: - Stroke *Q Stroke Criteria *Q: - AMI *Q AMI Criteria *Q:
== END 2016-11-24 13:50 | disposition home or self-care (01) | DRG 392 ==
LOC: MW.ED 21:39 → MW.MS 11-21 00:14 → UNDOADMOB 11-21 00:36 → OBSVTOIN 11-22 14:31 → MW.MS 11-22 17:18
PROVIDERS: ADMIT Internal Medicine; ATTEND Internal Medicine
DX: K57.32 Diverticulitis of large intestine without perforation or abscess without bleeding (principal); R11.2 Nausea with vomiting, unspecified; E87.2 Acidosis; E87.1 Hypo-osmolality and hyponatremia; R25.1 Tremor, unspecified; I10 Essential (primary) hypertension; E11.9 Type 2 diabetes mellitus without complications; F41.8 Other specified anxiety disorders; R63.0 Anorexia; E87.5 Hyperkalemia; E11.649 Type 2 diabetes mellitus with hypoglycemia without coma; G30.9 Alzheimer's disease, unspecified; F02.80 Dementia in other diseases classified elsewhere, unspecified severity, without behavioral disturbance, psychotic disturbance, mood disturbance, and anxiety; R53.1 Weakness; R10.9 Unspecified abdominal pain; Z91.041 Radiographic dye allergy status; Z88.8 Allergy status to other drugs, medicaments and biological substances; Z79.899 Other long term (current) drug therapy; Z87.891 Personal history of nicotine dependence
CPT/HCPCS: 36415 ×3; 71010; 74000; 74176; 80048 ×3; 80053; 81001; 82962 ×6; 84443; 84484; 85025 ×3; 93005; 96361; 96374; 96375; 99285; A9270 ×9; J1650; J2060; J2405 ×2; J7040 ×6; J7060; 96372; 96376; 97161-GP; 99283; G0378; J0744; J7042

== ENCOUNTER 2016-11-25 12:55 | Emergency (ER) | payer MEDICARE, BC, OTHER ==
[2016-11-25] MEDS ORDERED: Sodium Chloride 0.9% 1,000 ML IV ONE (13:13)
[2016-11-25] MEDS ORDERED: LORazepam 2 MG/ML MDV IVPUSH ONE (13:14)
--- NOTE | 2016-11-25 13:19 | EDM.PDOC ---
ED HPI GENERAL MEDICAL PROBLEM - General Chief Complaint: General Stated Complaint: TREMORS Time Seen by Provider: 11/25/16 13:13 Source of Information: Reports: Patient, Family - History of Present Illness INITIAL COMMENTS - FREE TEXT/NARRATIVE: HISTORY AND PHYSICAL: History of present illness: Patient is a 71-year-old female who presents to the emergency room via EMS with complaints of tremors. Patient was recently admitted to the medical surgical floor on 11/21/16 at that time with complaints of generalized weakness, tremors, confusion and decreased appetite. At that time she was found to have an electrolyte imbalance, hyponatremia, and this diverticulitis which she was treated with antibiotics. She was released from the hospital on 11/24/16 and the daughter reports she has not improved since then. Today she states her tremors are becoming more frequent and has started to have some chest pain. Upon patient's discharged she was instructed to follow-up with Dr. Jeter regarding her tremors and the general surgeon regarding her diverticulitis. Her daughter reports that they are uncomfortable with her being at home at this time. Patient denies any recent injury, falls or trauma. Patient has a past medical history of Alzheimer's dementia and diverticulitis. Denies any recent head injury or falls. Review of systems: As per history of present illness and below otherwise all systems reviewed and negative. Past medical history: As per history of present illness and as reviewed below otherwise noncontributory. Surgical history: As per history of present illness and as reviewed below otherwise noncontributory. Social history: No reported history of drug or alcohol abuse. Family history: As per history of present illness and as reviewed below otherwise noncontributory. Physical exam: Gen.: Well-developed and well-nourished 71-year-old female. Able to speak in full sentences without shortness of breath. Appropriate per self. HEENT: Atraumatic, normocephalic, pupils reactive, negative for conjunctival pallor or scleral icterus, mucous membranes moist, throat clear, neck supple, nontender, trachea midline. Lungs: Clear to auscultation, breath sounds equal bilaterally, chest nontender. Heart: S1S2, regular, negative for clicks, rubs, or JVD. Abdomen: Soft, nondistended, nontender. Negative for masses or hepatosplenomegaly. Negative for costovertebral tenderness. Pelvis: Stable nontender. Genitourinary: Deferred. Rectal: Deferred. Extremities: Atraumatic, negative for cords or calf pain. Neurovascular unremarkable. Neuro: Awake, alert, oriented. Cranial nerves II through XII unremarkable. Cerebellum unremarkable. Motor and sensory unremarkable throughout. Exam nonfocal. Dr. Martino was consulted on this patient. He states that due to her past workup from her last admission and the lack of findings from today's workup that she should be able to go home. She does have a follow-up appointment with the primary care provider for later this week. Dr. Martino did go and speak with the family/patient. Reviewed the gastric findings with the patient and family members. They felt that patient was more calm after receiving the Ativan and had not had any more "tremorous outbursts". She does have a follow-up appointment with Rafia at [facility] on Tuesday. Patient would like to have a "low-dose" of the Ativan she felt that this made her feel less anxious and less tremorous. I will prescribe 0.5 mg of Ativan to be given twice a day as needed along with a prescription for Zofran as she has had a decreased appetite over the past couple days. Informed the patient that these medications would need to be reviewed and refilled by her primary care provider. Patient is agreeable. Dr. Martino is speaking with the family as he is encouraging discharged to home. Dr. Martino is agreeable to prescribing the Ativan and Zofran. He would also like Nystatin Swish and spit prescribed for possible thrush. These were prescribed and education was given. Diagnostics: CBC, CMP, EKG, CXR, Head CT Therapeutics: IV fluid, ativan, Impression: Tremor Alzhiemers dementia Thrush Plan: 1. Take your medications as prescribed. 2. Keep your follow-up appointment with Rafia, the provider, at [facility]. 3. Return to the ED as needed as discussed Definitive disposition and diagnosis as appropriate pending reevaluation and review of above. - Related Data Allergies Allergy/AdvReac Type Severity Reaction Status Date / Time Dairy Products Allergy Diarrhea Verified 11/25/16 13:02 meperidine HCl [From Demerol] Allergy Hallucinati Verified 11/25/16 13:02 ons IVP Dye Allergy Hives Uncoded 11/25/16 13:02 Home Meds: Home Meds Cyanocobalamin (Vitamin B12) [Vitamin B12] 1 injection IM ASDIRECTED 11/20/16 [ History] Donepezil [Aricept] 10 mg PO BEDTIME 11/20/16 [History] Estradiol Valerate 20 mg IM ASDIRECTED 11/20/16 [History] Furosemide 20 mg PO DAILY 11/20/16 [History] Latanoprost 1 drop EYEBOTH BEDTIME 11/20/16 [History] Lisinopril 10 mg PO DAILY 11/20/16 [History] Memantine HCl 10 mg PO BEDTIME 11/20/16 [History] Mirtazapine 15 mg PO BEDTIME 11/20/16 [History] Carboxymethylcellulose Sodium [Refresh Tears] 1 drop EYEBOTH ASDIRECTED PRN 03/09 [History] Acetaminophen/Codeine [Tylenol with Codeine No.3 300MG/30MG] 1 tab PO Q6H [History] Ciprofloxacin HCl [Cipro] 500 mg PO Q8H 11/25/16 [History] metroNIDAZOLE [Flagyl] 500 mg PO Q12H 11/25/16 [History] Past Medical History HEENT History: Reports: Glaucoma Cardiovascular History: Reports: Hypertension Respiratory History: Reports: None Other Respiratory History: 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 Dementia Psychiatric History: Reports: Anxiety, Dementia, Depression Other Psychiatric History: hx: situational depression Endocrine/Metabolic History: Reports: Diabetes, Type II Hematologic History: Reports: None Immunologic History: Reports: None Oncologic (Cancer) History: Reports: None Dermatologic History: Reports: None - Infectious Disease History Infectious Disease History: Reports: Chicken Pox, Measles, Mumps - Past Surgical History HEENT Surgical History: Reports: None Other Female Surgeries/Procedures: Return to surgery post hysterectomy due to "clot formation" Other Musculoskeletal Surgeries/Procedures:: Left Rotator Cuff Repair Social & Family History - Family History Family Medical History: Noncontributory - Tobacco Use Smoking Status *Q: Former Smoker Years of Tobacco use: 15 Used Tobacco, but Quit: Yes Month Tobacco Last Used: 20 years ago Second Hand Smoke Exposure: No - Caffeine Use Caffeine Use: Reports: Coffee, Tea - Recreational Drug Use Recreational Drug Use: No Drug Use in Last 12 Months: No ED ROS GENERAL - Review of Systems Review Of Systems: ROS reveals no pertinent complaints other than HPI. ED EXAM, GENERAL - Physical Exam Exam: See Below (See dictation) Course - Vital Signs Last Recorded V/S: Last Vital Signs Temp 36.7 C 11/25/16 12:58 Pulse 63 11/25/16 12:58 Resp 18 11/25/16 12:58 BP 146/43 H 11/25/16 12:58 Pulse Ox 95 11/25/16 12:58 - Orders/Labs/Meds Orders: Active Orders 24 hr Category Date Time Status EKG Documentation Completion [RC] STAT Care 11/25/16 13:39 Active Notify Provider Consults [RC] ASDIRECTED Care 11/25/16 14:27 Active Consult to Physician [CONS] Stat Cons 11/25/16 14:26 Active UA W/MICROSCOPIC [URIN] Stat Lab 11/25/16 13:13 Uncollected Sodium Chloride 0.9% [Normal Saline] 1,000 ml Med 11/25/16 13:13 Active IV STAT Medication Orders Sodium Chloride (Normal Saline) 1,000 mls @ 150 mls/hr IV STAT ONE Stop: 11/25/16 19:52 Last Admin: 11/25/16 13:26 Dose: 150 mls/hr Labs: Laboratory Tests 11/25/16 11/25/16 Range/Units 13:33 13:33 WBC 7.06 (4.0-11.0) K/uL RBC 3.20 L (4.30-5.90) M/uL Hgb 9.5 L (12.0-16.0) g/dL Hct 28.7 L (36.0-46.0) % MCV 89.7 (80.0-98.0) fL MCH 29.7 (27.0-32.0) pg MCHC 33.1 (31.0-37.0) g/dL RDW Std Deviation 45.1 (28.0-62.0) fl RDW Coeff of Dyan 14 (11.0-15.0) % Plt Count 182 (150-400) K/uL MPV 10.30 (7.40-12.00) fL Neut % (Auto) 68.3 (48.0-80.0) % Lymph % (Auto) 24.1 (16.0-40.0) % Harvey % (Auto) 4.8 (0.0-15.0) % Eos % (Auto) 2.4 (0.0-7.0) % Baso % (Auto) 0.4 (0.0-1.5) % Neut # (Auto) 4.8 (1.4-5.7) K/uL Lymph # (Auto) 1.7 (0.6-2.4) K/uL Harvey # (Auto) 0.3 (0.0-0.8) K/uL Eos # (Auto) 0.2 (0.0-0.7) K/uL Baso # (Auto) 0.0 (0.0-0.1) K/uL Nucleated RBC % 0.0 /100WBC Nucleated RBCs # 0 K/uL Sodium 141 (136-146) mmol/L Potassium 4.1 (3.5-5.1) mmol/L Chloride 115 H (98-110) mmol/L Carbon Dioxide 17 L (21-31) mmol/L BUN 12 (6.0-23.0) mg/dL Creatinine 1.3 (0.6-1.5) mg/dL Est Cr Clr Drug Dosing 30.48 mL/min Estimated GFR (MDRD) 40.2 ml/min Glucose 84 (60-110) mg/dL Calcium 9.1 (8.8-10.8) mg/dL Total Bilirubin 0.2 (0.1-1.5) mg/dL AST 15 (5-40) IU/L ALT 9 (8-54) IU/L Alkaline Phosphatase 60 (40-150) Total Protein 6.4 (6.0-8.0) g/dL Albumin 3.6 (3.4-4.8) g/dL Globulin 2.8 (2.0-3.5) g/dL Albumin/Globulin Ratio 1.3 (1.3-2.8) Meds: Medications Generic Name Dose Route Start Last Admin Trade Name Freq PRN Reason Stop Dose Admin Sodium Chloride 1,000 mls @ 150 mls/hr 11/25/16 13:13 11/25/16 13:26 Normal Saline IV 11/25/16 19:52 150 mls/hr STAT ONE Administration Discontinued Medications Generic Name Dose Route Start Last Admin Trade Name Freq PRN Reason Stop Dose Admin Lorazepam 0.5 mg 11/25/16 13:14 11/25/16 13:29 Ativan IVPUSH 11/25/16 13:15 0.5 mg ONETIME ONE Administration Departure - Departure Time of Disposition: 15:06 Disposition: Home, Self-Care 01 Clinical Impression: Tremor Alzheimer's dementia Qualifiers: Alzheimer's disease onset: unspecified onset Dementia behavioral disturbance: without behavioral disturbance Qualified Code(s): G30.9 - Alzheimer's disease, unspecified - Discharge Information Referrals: PCP,Unknown [Primary Care Provider] - Forms: ED Department Discharge Additional Instructions: My general discharge The following information is given to patients seen in the emergency department who are being discharged to home. This information is to outline your options for follow-up care. We provide all patients seen in our emergency department with a follow-up referral. The need for follow-up, as well as the timing and circumstances, are variable depending upon the specifics of your emergency department visit. If you don't have a primary care physician on staff, we will provide you with a referral. We always advise you to contact your personal physician following an emergency department visit to inform them of the circumstance of the visit and for follow-up with them and/or the need for any referrals to a consulting specialist. The emergency department will also refer you to a specialist when appropriate. This referral assures that you have the opportunity for follow-up care with a specialist. All of these measure are taken in an effort to provide you with optimal care, which includes your follow-up. Under all circumstances we always encourage you to contact your private physician who remains a resource for coordinating your care. When calling for follow-up care, please make the office aware that this follow-up is from your recent emergency room visit. If for any reason you are refused follow-up, please contact the Emergency Department at and asked to speak to the emergency department charge nurse. [facility] [address] [place] [id number] 1. You may take the Ativan 0.5 mg twice daily as needed for your tremors/ anxiety as we discussed. This medication may cause drowsiness so please take it when a family member's home. The Zofran may be taken prior to eating up to 3 times daily. Both of these medications need to be reviewed with your primary care provider and refilled through them. 2. Follow-up with Rafia at [facility] as you already have scheduled on Tuesday. Return to the ED as needed as discussed. - My Orders Last 24 Hours: My Active Orders 11/25/16 13:13 UA W/MICROSCOPIC [URIN] Stat Sodium Chloride 0.9% [Normal Saline] 1,000 ml IV STAT 11/25/16 13:39 EKG Documentation Completion [RC] STAT 11/25/16 14:26 Consult to Physician [CONS] Stat 11/25/16 14:27 Notify Provider Consults [RC] ASDIRECTED - Assessment/Plan Last 24 Hours: My Active Orders 11/25/16 13:13 UA W/MICROSCOPIC [URIN] Stat Sodium Chloride 0.9% [Normal Saline] 1,000 ml IV STAT 11/25/16 13:39 EKG Documentation Completion [RC] STAT 11/25/16 14:26 Consult to Physician [CONS] Stat 11/25/16 14:27 Notify Provider Consults [RC] ASDIRECTED
--- NOTE | 2016-11-25 14:06 | CT ---
EXAMINATION: Non contrast CT head. Coronal and sagittal reformats. HISTORY: Pain FINDINGS: No evidence of intra or extra axial hemorrhage, mass, midline shift, hydrocephalus or edema. Mild ge neralized atrophy. No hypoattenuation changes in the major vascular territories to suggest acute infarct. No abnormal intracranial calcifications are detected. No evidence of substantial vascular calcificat ions. Paranasal sinuses and mastoid air cells are well aerated without substantial findings. Pituitary fossa appears unremarkable. There is approximately 12 mm tonsillar herniation. Calvarium is intact. No evidence of skull fracture. IMPRESSION: 1. No acute intracranial findings. 2. Chiari I malformation again noted. 3. Mild generalized atrophy.
--- NOTE | 2016-11-25 15:20 | PCM.CONS ---
H&P History of Present Illness - General Date of Service: 11/25/16 Admit Problem/Dx: The patient is a 71-year-old lady who is presented to the emergency department at a concern for tremors. The patient was discharged from hospitalization yesterday. Source of Information: Patient, Family - History of Present Illness Initial Comments - Free Text/Narative: The patient is a 71-year-old lady was presented to the emergency department with a chief complaint as listed above. Patient was previously admitted to hospitalization and was discharged chest a day. The patient was seen secondary to tremors and had been worked up for this and it was thought that the tremors were likely secondary to a shaking or a tic episode. The patient was also diagnosed with Alzheimer's dementia with likely behavioral disorder as well. The patient says that she is doing very well. Other than the occasional shaking she has no medical issues and no complaints at the present time. The patient is also able to participate in her history and physical. Family members have been consulted as well. The patient does have an appointment with neurology as well as her primary care physician. Further, the patient says that the Ativan has helped with the shaking. Onset of Symptoms: Reports: Gradual, Unknown/Unsure Location: Reports: Generalized Improves with: Reports: Medication Worsens with: Reports: None Associated Symptoms: Reports: No Other Symptoms - Related Data Allergies/Adverse Reactions: Allergies Allergy/AdvReac Type Severity Reaction Status Date / Time Dairy Products Allergy Diarrhea Verified 11/25/16 13:02 meperidine HCl [From Demerol] Allergy Hallucinati Verified 11/25/16 13:02 ons IVP Dye Allergy Hives Uncoded 11/25/16 13:02 Home Medications: Home Meds Cyanocobalamin (Vitamin B12) [Vitamin B12] 1 injection IM ASDIRECTED 11/20/16 [ History] Donepezil [Aricept] 10 mg PO BEDTIME 11/20/16 [History] Estradiol Valerate 20 mg IM ASDIRECTED 11/20/16 [History] Furosemide 20 mg PO DAILY 11/20/16 [History] Latanoprost 1 drop EYEBOTH BEDTIME 11/20/16 [History] Lisinopril 10 mg PO DAILY 11/20/16 [History] Memantine HCl 10 mg PO BEDTIME 11/20/16 [History] Mirtazapine 15 mg PO BEDTIME 11/20/16 [History] Carboxymethylcellulose Sodium [Refresh Tears] 1 drop EYEBOTH ASDIRECTED PRN 03/09 [History] Acetaminophen/Codeine [Tylenol with Codeine No.3 300MG/30MG] 1 tab PO Q6H [History] Ciprofloxacin HCl [Cipro] 500 mg PO Q8H 11/25/16 [History] metroNIDAZOLE [Flagyl] 500 mg PO Q12H 11/25/16 [History] Past Medical History HEENT History: Reports: Glaucoma Cardiovascular History: Reports: Hypertension Respiratory History: Reports: None Other Respiratory History: Reports 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 Dementia Psychiatric History: Reports: Anxiety, Dementia, Depression Other Psychiatric History: hx: situational depression Endocrine/Metabolic History: Reports: Diabetes, Type II Hematologic History: Reports: None Immunologic History: Reports: None Oncologic (Cancer) History: Reports: None Dermatologic History: Reports: None - Infectious Disease History Infectious Disease History: Reports: Chicken Pox, Measles, Mumps - Past Surgical History HEENT Surgical History: Reports: None Other Female Surgeries/Procedures: Return to surgery post hysterectomy due to "clot formation" Other Musculoskeletal Surgeries/Procedures:: Left Rotator Cuff Repair Social & Family History - Family History Family Medical History: Noncontributory - Tobacco Use Smoking Status *Q: Former Smoker Years of Tobacco use: 15 Used Tobacco, but Quit: Yes Month Tobacco Last Used: 20 years ago Second Hand Smoke Exposure: No - Caffeine Use Caffeine Use: Reports: Coffee, Tea - Recreational Drug Use Recreational Drug Use: No Drug Use in Last 12 Months: No H&P Review of Systems - Review of Systems: Review Of Systems: See Below General: Reports: No Symptoms HEENT: Reports: No Symptoms Pulmonary: Reports: No Symptoms Cardiovascular: Reports: No Symptoms Gastrointestinal: Reports: No Symptoms Genitourinary: Reports: No Symptoms Musculoskeletal: Reports: No Symptoms Skin: Reports: No Symptoms Psychiatric: Reports: No Symptoms Neurological: Reports: Confusion, Pre-Existing Deficit, Other Hematologic/Lymphatic: Reports: No Symptoms Immunologic: Reports: No Symptoms Exam - Exam Exam: See Below - Vital Signs Vital Signs: Last Vital Signs Temp 36.7 C 11/25/16 12:58 Pulse 63 11/25/16 12:58 Resp 18 11/25/16 12:58 BP 146/43 H 11/25/16 12:58 Pulse Ox 95 11/25/16 12:58 Weight: 74 kg - Exam Quality Assessment: Supplemental Oxygen General: Alert. No: Oriented HEENT: Conjunctiva Clear, Mucosa Moist & [place], Nares Patent Neck: Supple, Trachea Midline Lungs: Clear to Auscultation, Normal Respiratory Effort Cardiovascular: Regular Rate, Regular Rhythm GI/Abdominal Exam: Normal Bowel Sounds, Soft, Non-Tender Back Exam: Decreased Range of Motion Extremities: No Pedal Edema Skin: Warm, Dry, Intact Neurological: Cranial Nerves Intact, Reflexes Equal Bilateral Neuro Extensive - Mental Status: Alert, Memory Loss-Recent Events. No: Oriented x3 (Confusion as to date) - Patient Data Lab Results Last 24 hrs: Laboratory Results - last 24 hr 11/25/16 11/25/16 Range/Units 13:33 13:33 WBC 7.06 (4.0-11.0) K/uL RBC 3.20 L (4.30-5.90) M/uL Hgb 9.5 L (12.0-16.0) g/dL Hct 28.7 L (36.0-46.0) % MCV 89.7 (80.0-98.0) fL MCH 29.7 (27.0-32.0) pg MCHC 33.1 (31.0-37.0) g/dL RDW Std Deviation 45.1 (28.0-62.0) fl RDW Coeff of Dyan 14 (11.0-15.0) % Plt Count 182 (150-400) K/uL MPV 10.30 (7.40-12.00) fL Neut % (Auto) 68.3 (48.0-80.0) % Lymph % (Auto) 24.1 (16.0-40.0) % [place]uckolls % (Auto) 4.8 (0.0-15.0) % Eos % (Auto) 2.4 (0.0-7.0) % Baso % (Auto) 0.4 (0.0-1.5) % Neut # (Auto) 4.8 (1.4-5.7) K/uL Lymph # (Auto) 1.7 (0.6-2.4) K/uL [place]olls # (Auto) 0.3 (0.0-0.8) K/uL Eos # (Auto) 0.2 (0.0-0.7) K/uL Baso # (Auto) 0.0 (0.0-0.1) K/uL Nucleated RBC % 0.0 /100WBC Nucleated RBCs # 0 K/uL Sodium 141 (136-146) mmol/L Potassium 4.1 (3.5-5.1) mmol/L Chloride 115 H (98-110) mmol/L Carbon Dioxide 17 L (21-31) mmol/L BUN 12 (6.0-23.0) mg/dL Creatinine 1.3 (0.6-1.5) mg/dL Est Cr Clr Drug Dosing 30.48 mL/min Estimated GFR (MDRD) 40.2 ml/min Glucose 84 (60-110) mg/dL Calcium 9.1 (8.8-10.8) mg/dL Total Bilirubin 0.2 (0.1-1.5) mg/dL AST 15 (5-40) IU/L ALT 9 (8-54) IU/L Alkaline Phosphatase 60 (40-150) Total Protein 6.4 (6.0-8.0) g/dL Albumin 3.6 (3.4-4.8) g/dL Globulin 2.8 (2.0-3.5) g/dL Albumin/Globulin Ratio 1.3 (1.3-2.8) Result Diagrams: 11/25/16 13:33 11/25/16 13:33 Consult PN Assessment/Plan Procedures: Procedures ASSAY OF MAGNESIUM (11/04/14) ASSAY OF TROPONIN QUANT (11/22/16) ASSAY THYROID STIM HORMONE (11/22/16) BLOOD TYPING SEROLOGIC ABO (11/04/14) BLOOD TYPING SEROLOGIC RH(D) (11/04/14) CHEST X-RAY 1 VIEW FRONTAL (11/22/16) CHEST X-RAY 2VW FRONTAL&LATL (11/04/14) COMPLETE CBC W/AUTO DIFF WBC (11/22/16) COMPREHEN METABOLIC PANEL (11/22/16) CT ABD & PELVIS W/O CONTRAST (11/22/16) CT HEAD/BRAIN W/O DYE (11/04/14) DECALCIFY TISSUE (11/04/14) DRAIN/INJ JOINT/BURSA W/O US (06/13/14) ELECTROCARDIOGRAM TRACING (11/22/16) EMERGENCY DEPT VISIT (11/22/16) EMERGENCY DEPT VISIT (11/12/14) EXTREMITY STUDY (11/12/14) GAIT TRAINING THERAPY (11/04/14) GLUCOSE BLOOD TEST (11/22/16) HEMATOCRIT (11/04/14) HEMOGLOBIN (11/04/14) HOT OR COLD PACKS THERAPY (11/20/14) HYDRATE IV INFUSION ADD-ON (11/22/16) METABOLIC PANEL TOTAL CA (11/22/16) MRI JNT OF LWR EXTRE W/O DYE (09/30/14) OFFICE/OUTPATIENT VISIT EST (10/15/14) PT EVAL LOW COMPLEX 20 MIN (11/22/16) PT EVALUATION (11/20/14) RBC ANTIBODY SCREEN (11/04/14) ROUTINE VENIPUNCTURE (11/22/16) THER/PROPH/DIAG INJ IV PUSH (11/22/16) THERAPEUTIC ACTIVITIES (11/04/14) THERAPEUTIC EXERCISES (12/26/14) TISSUE EXAM BY PATHOLOGIST (11/04/14) TX/PRO/DX INJ NEW DRUG ADDON (11/22/16) URINALYSIS AUTO W/SCOPE (11/22/16) URINE CULTURE/COLONY COUNT (11/04/14) US EXAM OF HEAD AND NECK (05/24/16) VASOPNEUMATIC DEVICE THERAPY (12/19/14) X-RAY EXAM KNEE 4 OR MORE (06/13/14) X-RAY EXAM OF ABDOMEN (11/22/16) X-RAY EXAM OF KNEE 1 OR 2 (11/04/14) X-RAY EXAM OF KNEE 3 (01/01/16) X-RAY EXAM OF SHOULDER (06/13/14) Problem List Initiated/Reviewed/Updated: Yes My Orders Last 24 Hours: The patient does have a history of shakes which may be related to the Alzheimer' s. The patient was discharged yesterday and she has an appointment with her primary care physician as well as her neurologist. The patient is doing better with the Ativan and I recommend to the ER physician that she be discharged on Ativan 0.5 mg by mouth twice a day as necessary, Zofran 4 mg by mouth every 6 hours as needed for nausea as well as nystatin swish and swallow 5 mL every 12 hours as needed for oral thrush. I've discussed all these options with the patient and her family and questions were answered. Requesting Provider: Dr. Sabas Rosario Date Consult Requested: 11/25/16 Patient History Reviewed: Yes Admission H&P Reviewed: Yes Notified Requestor: Yes
[2016-11-25 16:05] VITALS: BP 180/63
== END 2016-11-25 15:35 | disposition home or self-care (01) ==
LOC: MW.ED 12:55
DX: R25.1 Tremor, unspecified (principal); G30.9 Alzheimer's disease, unspecified; F02.80 Dementia in other diseases classified elsewhere, unspecified severity, without behavioral disturbance, psychotic disturbance, mood disturbance, and anxiety; B37.9 Candidiasis, unspecified; I10 Essential (primary) hypertension; E11.9 Type 2 diabetes mellitus without complications; Z91.011 Allergy to milk products; Z88.8 Allergy status to other drugs, medicaments and biological substances; Z79.899 Other long term (current) drug therapy; Z87.891 Personal history of nicotine dependence
CPT/HCPCS: 36415; 70450; 80053; 85025; 93005; 96361; 96374; 99285; J2060; J7040; 99284

== ENCOUNTER 2017-02-27 17:07 | Emergency (ER) | payer MEDICARE, BC, OTHER ==
[2017-02-27] MEDS ORDERED: Sodium Chloride 0.9% 1,000 ML IV ONE (19:38)
--- NOTE | 2017-02-27 19:44 | EDM.PDOC ---
ED HPI GENERAL MEDICAL PROBLEM - General Chief Complaint: Genitourinary Problem Stated Complaint: LOWER ABDOMINAL PAIN Time Seen by Provider: 02/27/17 18:01 Source of Information: Reports: Patient History Limitations: Reports: No Limitations - History of Present Illness INITIAL COMMENTS - FREE TEXT/NARRATIVE: HISTORY AND PHYSICAL: History of present illness: Patient is a 71-year-old female who presents to the emergency room today with complaints of left lower abdominal pain which started this morning. She denies any fever, chest pain, shortness of breath, nausea, vomiting, diarrhea or constipation. She does have a history of diverticulitis, kidney stones, hemorrhoids and his concerns that she may need a scan of her abdomen. She does have a history of dementia and proceeds to tell a story of how she had a scan done recently" she had a barium toady. The daughter at the bedside states this was done approximately 4 years ago due to her chronic abdominal pain. She did have a diverticulitis flare approximately 3 months ago which she was treated in [place]. Review of systems: As per history of present illness and below otherwise all systems reviewed and negative. Past medical history: As per history of present illness and as reviewed below otherwise noncontributory. Surgical history: As per history of present illness and as reviewed below otherwise noncontributory. Social history: No reported history of drug or alcohol abuse. Family history: As per history of present illness and as reviewed below otherwise noncontributory. Physical exam: General: Non toxic-appearing 71-year-old female. Alert and oriented, slight confusion with past details of events. HEENT: Atraumatic, normocephalic, pupils reactive, negative for conjunctival pallor or scleral icterus, mucous membranes moist, throat clear, neck supple, nontender, trachea midline. Lungs: Clear to auscultation, breath sounds equal bilaterally, chest nontender. Heart: S1S2, regular rate and rhythm Abdomen: Soft, nondistended, nontender. Negative for masses or hepatosplenomegaly. Negative for costovertebral tenderness. Pelvis: Stable nontender. Genitourinary: Deferred. Rectal: This is done with a project asst at the bedside. Good rectal tone. External hemorrhoid noted. Hemoccult positive Extremities: Atraumatic, ambulatory and moves all extremities per self negative for cords or calf pain. Neurovascular unremarkable. Neuro: Awake, alert, oriented. Cranial nerves II through XII unremarkable. Cerebellum unremarkable. Motor and sensory unremarkable throughout. Exam nonfocal. Rectal exam was done with a project asst, please see physical exam. She states that she unable to have any IVP dye and is not wanting to "drink any of that" contrast. She states that she had a hard time with her bowels after drinking the oral contrast. Will do a abdomen and pelvis without. CBC was within normal limits, CMP shows a BUN of 29 and a creatinine of 1.7. Give the patient some IV fluids. Waiting for the CT results of her abdomen and pelvis. CT scan does show severe colonic diverticulosis with moderate diverticulitis of the left lower descending colon, there is no abscess. I did inform the patient and family of this finding. At this time I offered her admission for IV fluid and antibiotics. She is adamant that she will not stay the night. Family states that they do live with her and will monitor her and make sure she takes her antibiotics. The daughter states that she will take her to [place] tomorrow for follow-up appointment. We discussed having her renal functions repeated and follow-up assessment done either Tuesday or Tuesday. We discussed signs and symptoms to monitor for that would prompt her to come back to the emergency room. Both patient and daughter voiced understanding and are agreeable to plan of care. Both of them tonight and he questions at this time. We'll provide the patient with a dose of Cipro and Flagyl for tonight and tomorrow morning so she can fill her prescriptions through [place] when they are open. Education has been done. Diagnostics: CBC, CMP, Hemoccult stool Therapeutics: IV fluid, Cipro, Flagyl Impression: Diverticulosis with moderate diverticulitis of the lower descending colon UTI Plan: 1. Please have your labs repeated in the next 24-48 hours. Your BUN = 29 with a creatinine = 1.7. Plenty of fluids at home. All upper with your provider in [place] either Tuesday or Tuesday as we discussed. 2. You declined admission today. So please monitor her symptoms, if he develop any new or symptoms worsen you need to return to the ER. 3. Please take your Cipro and Flagyl as directed. With the Flagyl please make sure you are not drinking any alcohol or taking any medications that contain alcohol as this may cause severe stomach upset. 4. Follow up in [place] as we discussed. Return to the ED as needed and as discussed Definitive disposition and diagnosis as appropriate pending reevaluation and review of above. left lower abdominal Pain Score (Numeric/FACES): 8 - Related Data Allergies Allergy/AdvReac Type Severity Reaction Status Date / Time Dairy Products Allergy Diarrhea Verified 02/27/17 17:38 meperidine HCl [From Demerol] Allergy Hallucinati Verified 02/27/17 17:38 ons IVP Dye Allergy Hives Uncoded 11/25/16 13:02 Home Meds: Home Meds Acetaminophen [Tylenol] 325 mg PO DAILY 02/27/17 [History] Acetaminophen with Codeine [Acetaminophen-Cod #3] 30 mg PO DAILY 02/27/17 [ History] Aspirin [Ecotrin] 81 mg PO DAILY 02/27/17 [History] Calcium Carbonate [[place]-500] 500 mg PO DAILY 02/27/17 [History] Donepezil HCl [Donepezil HCl] 10 mg PO BID 02/27/17 [History] Hydrochlorothiazide [Hydrochlorothiazide] 25 mg PO DAILY 02/27/17 [History] Iron Polysaccharides Complex [Ferrex 150] 150 mg PO DAILY 02/27/17 [History] LORazepam 0.5 mg PO DAILY 02/27/17 [History] Latanoprost [Latanoprost] 2.5 ml EYEBOTH DAILY 02/27/17 [History] Lisinopril [Lisinopril] 10 mg PO DAILY 02/27/17 [History] Memantine [Namenda] 10 mg PO DAILY 02/27/17 [History] Mirtazapine 15 mg PO DAILY 02/27/17 [History] Ondansetron [IJD: Ondansetron ODT] 4 mg PO DAILY 02/27/17 [History] Past Medical History HEENT History: Reports: Glaucoma Cardiovascular History: Reports: Hypertension Respiratory History: Reports: None Other Respiratory History: 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 Dementia Psychiatric History: Reports: Anxiety, Dementia, Depression Other Psychiatric History: hx: situational depression Endocrine/Metabolic History: Reports: Diabetes, Type II Hematologic History: Reports: None Immunologic History: Reports: None Oncologic (Cancer) History: Reports: None Dermatologic History: Reports: None - Infectious Disease History Infectious Disease History: Reports: Chicken Pox, Measles, Mumps - Past Surgical History HEENT Surgical History: Reports: None Other Female Surgeries/Procedures: Return to surgery post hysterectomy due to "clot formation" Other Musculoskeletal Surgeries/Procedures:: Left Rotator Cuff Repair Social & Family History - Family History Family Medical History: Noncontributory - Tobacco Use Smoking Status *Q: Never Smoker Years of Tobacco use: 15 Used Tobacco, but Quit: Yes Month Tobacco Last Used: 20 years ago Second Hand Smoke Exposure: No - Caffeine Use Caffeine Use: Reports: Coffee - Recreational Drug Use Recreational Drug Use: No Drug Use in Last 12 Months: No ED ROS GENERAL - Review of Systems Review Of Systems: ROS reveals no pertinent complaints other than HPI. ED EXAM, GI/ABD - Physical Exam Exam: See Below (See dictation) Course - Vital Signs Last Recorded V/S: Last Vital Signs Temp 96.2 F 02/27/17 17:38 Pulse 93 02/27/17 17:38 Resp 18 02/27/17 17:38 BP 150/65 H 02/27/17 17:38 Pulse Ox 97 02/27/17 17:38 - Orders/Labs/Meds Orders: Active Orders 24 hr Category Date Time Status Fecal Occult Blood Collection [RC] ASDIRECTED Care 02/27/17 19:30 Active Abdomen Pelvis wo Cont [CT] Stat Exams 02/27/17 18:43 Taken CULTURE URINE [RM] Stat Lab 02/27/17 17:55 Received Labs: Laboratory Tests 02/27/17 02/27/17 02/27/17 Range/Units 17:55 18:09 18:09 WBC 7.21 (4.0-11.0) K/uL RBC 3.81 L (4.30-5.90) M/uL Hgb 11.4 L (12.0-16.0) g/dL Hct 33.7 L (36.0-46.0) % MCV 88.5 (80.0-98.0) fL MCH 29.9 (27.0-32.0) pg MCHC 33.8 (31.0-37.0) g/dL RDW Std Deviation 45.5 (28.0-62.0) fl RDW Coeff of Dyan 14 (11.0-15.0) % Plt Count 224 (150-400) K/uL MPV 10.20 (7.40-12.00) fL Neut % (Auto) 59.9 (48.0-80.0) % Lymph % (Auto) 29.4 (16.0-40.0) % [place] % (Auto) 8.3 (0.0-15.0) % Eos % (Auto) 1.8 (0.0-7.0) % Baso % (Auto) 0.6 (0.0-1.5) % Neut # (Auto) 4.3 (1.4-5.7) K/uL Lymph # (Auto) 2.1 (0.6-2.4) K/uL [place] # (Auto) 0.6 (0.0-0.8) K/uL Eos # (Auto) 0.1 (0.0-0.7) K/uL Baso # (Auto) 0.0 (0.0-0.1) K/uL Nucleated RBC % 0.0 /100WBC Nucleated RBCs # 0 K/uL Sodium 142 (136-146) mmol/L Potassium 4.6 (3.5-5.1) mmol/L Chloride 114 H (98-110) mmol/L Carbon Dioxide 17 L (21-31) mmol/L BUN 29 H (6.0-23.0) mg/dL Creatinine 1.7 H (0.6-1.5) mg/dL Est Cr Clr Drug Dosing 26.52 mL/min Estimated GFR (MDRD) 29.5 ml/min Glucose 110 (60-110) mg/dL Calcium 9.6 (8.8-10.8) mg/dL Total Bilirubin 0.4 (0.1-1.5) mg/dL AST 15 (5-40) IU/L ALT 13 (8-54) IU/L Alkaline Phosphatase 77 (40-150) Total Protein 7.3 (6.0-8.0) g/dL Albumin 4.2 (3.4-4.8) g/dL Globulin 3.1 (2.0-3.5) g/dL Albumin/Globulin Ratio 1.4 (1.3-2.8) Urine Color YELLOW Urine Appearance CLEAR Urine pH 5.0 (5.0-8.0) Ur Specific [place] 1.020 (1.001-1.035) Urine Protein NEGATIVE (NEGATIVE) mg/dL Urine Glucose (UA) NEGATIVE (NEGATIVE) mg/dL Urine Ketones NEGATIVE (NEGATIVE) mg/dL Urine Occult Blood NEGATIVE (NEGATIVE) Urine Nitrite NEGATIVE (NEGATIVE) Urine Bilirubin NEGATIVE (NEGATIVE) Urine Urobilinogen 0.2 (<2.0) EU/dL Ur Leukocyte Esterase SMALL (NEGATIVE) Urine RBC 0-1 (0-2/HPF) Urine WBC 2-4 (0-5/HPF) Ur Epithelial Cells FEW (NONE-FEW) Urine Bacteria 2+ H (NEGATIVE) Meds: Medications Discontinued Medications Generic Name Dose Route Start Last Admin Trade Name Freq PRN Reason Stop Dose Admin Ciprofloxacin 500 mg 02/27/17 20:52 02/27/17 21:09 Ciprofloxacin Hcl PO 02/27/17 20:53 500 mg ONETIME ONE Administration Ciprofloxacin 500 mg 02/27/17 21:01 02/27/17 21:10 Ciprofloxacin Hcl PO 02/27/17 21:02 500 mg ONETIME ONE Administration Sodium Chloride 1,000 mls @ 999 mls/hr 02/27/17 19:38 02/27/17 20:05 Normal Saline IV 02/27/17 20:38 999 mls/hr STAT ONE Administration Metronidazole 500 mg 02/27/17 20:52 02/27/17 21:10 Metronidazole PO 02/27/17 20:53 500 mg ONETIME ONE Administration Metronidazole Confirm 02/27/17 20:58 02/27/17 21:09 Metronidazole Administered 02/27/17 20:59 Not Given Dose 250 mg .ROUTE .STK-MED ONE Metronidazole 500 mg 02/27/17 21:01 02/27/17 21:10 Metronidazole PO 02/27/17 21:02 500 mg ONETIME ONE Administration Departure - Departure Time of Disposition: 21:20 Disposition: Home, Self-Care 01 Clinical Impression: Diverticulitis UTI (urinary tract infection) Qualifiers: Urinary tract infection type: site unspecified Hematuria presence: without hematuria Qualified Code(s): N39.0 - Urinary tract infection, site not specified - Discharge Information Referrals: Mary Andres MD [Primary Care Provider] - Forms: ED Department Discharge Additional Instructions: My general discharge The following information is given to patients seen in the emergency department who are being discharged to home. This information is to outline your options for follow-up care. We provide all patients seen in our emergency department with a follow-up referral. The need for follow-up, as well as the timing and circumstances, are variable depending upon the specifics of your emergency department visit. If you don't have a primary care physician on staff, we will provide you with a referral. We always advise you to contact your personal physician following an emergency department visit to inform them of the circumstance of the visit and for follow-up with them and/or the need for any referrals to a consulting specialist. The emergency department will also refer you to a specialist when appropriate. This referral assures that you have the opportunity for follow-up care with a specialist. All of these measure are taken in an effort to provide you with optimal care, which includes your follow-up. Under all circumstances we always encourage you to contact your private physician who remains a resource for coordinating your care. When calling for follow-up care, please make the office aware that this follow-up is from your recent emergency room visit. If for any reason you are refused follow-up, please contact the [facility] Emergency Department at and asked to speak to the emergency department charge nurse. [facility] [address] [place] [id number] 1. Please have your labs repeated in the next 24-48 hours. Your BUN = 29 with a creatinine = 1.7. Plenty of fluids at home. Follow up with your provider in [place] either Tuesday or Tuesday as we discussed. 2. You declined admission today. So please monitor her symptoms, if he develop any new or symptoms worsen you need to return to the ER. 3. Please take your Cipro and Flagyl as directed. With the Flagyl please make sure you are not drinking any alcohol or taking any medications that contain alcohol as this may cause severe stomach upset. He did have a urinary tract infection, a culture has been added to her labs today. We will call you if antibiotic needs to be adjusted due to bacterial growth. 4. Follow up in [place] as we discussed. Return to the ED as needed and as discussed - My Orders Last 24 Hours: My Active Orders 02/27/17 17:55 CULTURE URINE [RM] Stat 02/27/17 18:43 Abdomen Pelvis wo Cont [CT] Stat 02/27/17 19:30 Fecal Occult Blood Collection [RC] ASDIRECTED - Assessment/Plan Last 24 Hours: My Active Orders 02/27/17 17:55 CULTURE URINE [RM] Stat 02/27/17 18:43 Abdomen Pelvis wo Cont [CT] Stat 02/27/17 19:30 Fecal Occult Blood Collection [RC] ASDIRECTED
[2017-02-27] MEDS ORDERED: metroNIDAZOLE 250 MG Tab PO ONE ×2 (20:52→21:01)
[2017-02-27] MEDS ORDERED: Ciprofloxacin 500 MG Tab PO ONE ×2 (20:52→21:01)
[2017-02-27] MEDS ORDERED: metroNIDAZOLE 250 MG Tab ONE (20:58)
[2017-02-27 22:11] VITALS: BP 137/63
--- NOTE | 2017-02-28 14:51 | CT ---
EXAM DATE: 02/27/17 PATIENT'S AGE: 71 Patient: NAHEED JESSICA Facility: [place], [place] Site . Site : 1945 Study: CT Abdomen/Pelvis [id number]/[id number] 7:11:35 PM Ordering Physician: Doctor Shankar Final Report: CLINICAL INDICATION: Abdominal pain. Technique: Axial noncontrast CT cuts were performed from above the diaphragm to just below the ischial tuberosities. Comparison: 11/22/2016. Findings: There is severe colonic diverticulosis. There is pericolonic fat stranding of the lower descending colon with mucosal thickening consistent with moderate acute diverticulitis. There is no abscess. There is no free intraperitoneal air or fluid. The small bowel appears normal. There has been a cholecystectomy. The liver, spleen, pancreas, adrenals and kidneys appear normal. There are no enlarged lymph nodes within the retroperitoneum or mesentery. There has been a hysterectomy. The urinary bladder appears normal. There are no enlarged iliac or inguinal lymph nodes. There are no nodules or masses at the lung bases. Impression: 1. Severe colonic diverticulosis with moderate diverticulitis of the lower descending colon. There is no abscess. 2. Status post cholecystectomy and hysterectomy. Please note that all CT scans at this facility use dose modulation, iterative reconstruction, and/or weight-based dosing when appropriate to reduce radiation dose to as low as reasonably achievable. Dictated by Gerardo Preston MD @ Feb 27 2017 7:47PM (Electronic Signature) Report Signed by Proxy. SHEEBA
== END 2017-02-27 21:39 | disposition home or self-care (01) ==
LOC: MW.ED 17:07
DX: K57.32 Diverticulitis of large intestine without perforation or abscess without bleeding (principal); K57.30 Diverticulosis of large intestine without perforation or abscess without bleeding; N39.0 Urinary tract infection, site not specified; I10 Essential (primary) hypertension; E11.9 Type 2 diabetes mellitus without complications; Z91.011 Allergy to milk products; Z91.041 Radiographic dye allergy status; Z79.899 Other long term (current) drug therapy; Z79.82 Long term (current) use of aspirin; Z90.49 Acquired absence of other specified parts of digestive tract; Z90.710 Acquired absence of both cervix and uterus
CPT/HCPCS: 36415; 74176; 80053; 81001; 85025; 87086; 87088; 87186; 96360; 99284; A9270; J7040

== ENCOUNTER 2018-03-19 16:33 | Emergency (ER) | payer MEDICARE, MEDICAID, BC, OTHER ==
--- NOTE | 2018-03-19 16:41 | EDM.PDOC ---
ED HPI GENERAL MEDICAL PROBLEM - General Chief Complaint: Lower Extremity Injury/Pain Stated Complaint: FALL Time Seen by Provider: 03/19/18 16:38 - History of Present Illness INITIAL COMMENTS - FREE TEXT/NARRATIVE: HISTORY AND PHYSICAL: History of present illness: Patient is 72-year-old white female who presents status post fall when she tripped over her cat injuring her left hip she denies head or neck pain or trauma denies chest pain dizziness shortness of breath or other complaints. She is on aspirin she denies any other antiplatelet or anticoagulants. Review of systems: As per history of present illness and below otherwise all systems reviewed and negative. Past medical history: As per history of present illness and as reviewed below otherwise noncontributory. Surgical history: As per history of present illness and as reviewed below otherwise noncontributory. Social history: No reported history of drug or alcohol abuse. Family history: As per history of present illness and as reviewed below otherwise noncontributory. Physical exam: HEENT: Atraumatic, normocephalic, pupils reactive, negative for conjunctival pallor or scleral icterus, mucous membranes moist, throat clear, neck supple, nontender, trachea midline. Lungs: Clear to auscultation, breath sounds equal bilaterally, chest nontender. Heart: S1S2, regular, negative for clicks, rubs, or JVD. Abdomen: Soft, nondistended, nontender. Negative for masses or hepatosplenomegaly. Negative for costovertebral tenderness. Pelvis: Stable nontender. Genitourinary: Deferred. Rectal: Deferred. Extremities: Patient's left leg is semi-flex it does still appear shortened and rotated neurovascular exam is unremarkable Neuro: Awake, alert, age-appropriate nonfocal exam follows commands moves all extremities Diagnostics: CBC CMP PT/INR troponin EKG chest x-ray left hip with pelvis x-ray Therapeutics: IV O2 monitor Impression: #1 observation status post fall with acute left hip injury #2 history of Alzheimer Definitive disposition and diagnosis as appropriate pending reevaluation and review of above. Left hip Pain Score (Numeric/FACES): 8 - Related Data Allergies Allergy/AdvReac Type Severity Reaction Status Date / Time Dairy Products Allergy Diarrhea Verified 03/19/18 16:59 meperidine HCl [From Demerol] Allergy Hallucinati Verified 03/19/18 16:59 ons IVP Dye Allergy Hives Uncoded 03/19/18 16:59 Home Meds: Home Meds Acetaminophen [Tylenol] 325 mg PO DAILY 02/27/17 [History] Acetaminophen with Codeine [Acetaminophen-Cod #3] 30 mg PO DAILY 02/27/17 [ History] Aspirin [Ecotrin] 81 mg PO DAILY 02/27/17 [History] Calcium Carbonate [Oysco-500] 500 mg PO DAILY 02/27/17 [History] Donepezil HCl 10 mg PO BID 02/27/17 [History] Iron Polysaccharides Complex [Ferrex 150] 150 mg PO DAILY 02/27/17 [History] LORazepam 0.5 mg PO DAILY 02/27/17 [History] Latanoprost 2.5 ml EYEBOTH DAILY 02/27/17 [History] Lisinopril 10 mg PO DAILY 02/27/17 [History] Memantine [Namenda] 10 mg PO DAILY 02/27/17 [History] Mirtazapine 15 mg PO DAILY 02/27/17 [History] Ondansetron [IJD: Ondansetron ODT] 4 mg PO DAILY 02/27/17 [History] hydroCHLOROthiazide [Hydrochlorothiazide] 25 mg PO DAILY 02/27/17 [History] Past Medical History HEENT History: Reports: Glaucoma Cardiovascular History: Reports: Hypertension Respiratory History: Reports: None Other Respiratory History: 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 Dementia Psychiatric History: Reports: Anxiety, Dementia, Depression Other Psychiatric History: hx: situational depression Endocrine/Metabolic History: Reports: Diabetes, Type II Hematologic History: Reports: None Immunologic History: Reports: None Oncologic (Cancer) History: Reports: None Dermatologic History: Reports: None - Infectious Disease History Infectious Disease History: Reports: Chicken Pox, Measles, Mumps - Past Surgical History HEENT Surgical History: Reports: None Other Female Surgeries/Procedures: Return to surgery post hysterectomy due to "clot formation" Other Musculoskeletal Surgeries/Procedures:: Left Rotator Cuff Repair Social & Family History - Family History Family Medical History: Noncontributory - Caffeine Use Caffeine Use: Reports: Coffee Review of Systems - Review of Systems Review Of Systems: ROS reveals no pertinent complaints other than HPI. ED EXAM, GENERAL - Physical Exam Exam: See Below (See dictation) Course - Vital Signs Last Recorded V/S: Last Vital Signs Temp 36.4 C 03/19/18 16:59 Pulse 96 03/19/18 16:59 Resp 16 03/19/18 16:59 BP 138/63 03/19/18 16:59 Pulse Ox 98 03/19/18 16:59 - Orders/Labs/Meds Orders: Active Orders 24 hr Category Date Time Status Cardiac Monitoring [RC] . DIRECTED Care 03/19/18 16:42 Active EKG Documentation Completion [RC] STAT Care 03/19/18 16:42 Active Chest 1V Frontal [CR] Stat Exams 03/19/18 16:42 Taken Hip Min 2V or 3V w Pelvis Lt [CR] Stat Exams 03/19/18 16:43 Taken COMPREHENSIVE METABOLIC PN,CMP [CHEM] Stat Lab 03/19/18 16:49 Received TROPONIN I [CHEM] Stat Lab 03/19/18 16:49 Received UA W/MICROSCOPIC [URIN] Stat Lab 03/19/18 16:42 Ordered Sodium Chloride 0.9% [Normal Saline] 1,000 ml Med 03/19/18 16:45 Active IV ASDIRECTED Sodium Chloride 0.9% [Saline Flush] Med 03/19/18 16:42 Active 10 ml FLUSH ASDIRECTED PRN Sodium Chloride 0.9% [Saline Flush] Med 03/19/18 16:42 Active 2.5 ml FLUSH ASDIRECTED PRN Saline Lock Insert [OM.PC] Stat Oth 03/19/18 16:42 Ordered Medication Orders Sodium Chloride (Normal Saline) 1,000 mls @ 125 mls/hr IV ASDIRECTED NAEL Last Admin: 03/19/18 17:08 Dose: 125 mls/hr Sodium Chloride (Saline Flush) 10 ml FLUSH ASDIRECTED PRN PRN Reason: Keep Vein Open Last Admin: 03/19/18 17:08 Dose: 10 ml Sodium Chloride (Saline Flush) 2.5 ml FLUSH ASDIRECTED PRN PRN Reason: Keep Vein Open Last Admin: 03/19/18 17:08 Dose: 2.5 ml Labs: Laboratory Tests 03/19/18 03/19/18 Range/Units 16:49 16:49 WBC 10.18 (4.0-11.0) K/uL RBC 3.41 L (4.30-5.90) M/uL Hgb 10.2 L (12.0-16.0) g/dL Hct 30.1 L (36.0-46.0) % MCV 88.3 (80.0-98.0) fL MCH 29.9 (27.0-32.0) pg MCHC 33.9 (31.0-37.0) g/dL RDW Std Deviation 43.3 (28.0-62.0) fl RDW Coeff of Dyan 14 (11.0-15.0) % Plt Count 218 (150-400) K/uL MPV 10.70 (7.40-12.00) fL Neut % (Auto) 67.0 (48.0-80.0) % Lymph % (Auto) 25.8 (16.0-40.0) % Barbour % (Auto) 4.3 (0.0-15.0) % Eos % (Auto) 2.4 (0.0-7.0) % Baso % (Auto) 0.5 (0.0-1.5) % Neut # (Auto) 6.8 H (1.4-5.7) K/uL Lymph # (Auto) 2.6 H (0.6-2.4) K/uL [place]bour # (Auto) 0.4 (0.0-0.8) K/uL Eos # (Auto) 0.2 (0.0-0.7) K/uL Baso # (Auto) 0.1 (0.0-0.1) K/uL Nucleated RBC % 0.0 /100WBC Nucleated RBCs # 0 K/uL INR 0.91 Meds: Medications Generic Name Dose Route Start Last Admin Trade Name Freq PRN Reason Stop Dose Admin Sodium Chloride 1,000 mls @ 125 mls/hr 03/19/18 16:45 03/19/18 17:08 Normal Saline IV 125 mls/hr ASDIRECTED NAEL Administration Sodium Chloride 10 ml 03/19/18 16:42 03/19/18 17:08 Saline Flush FLUSH 10 ml ASDIRECTED PRN Administration Keep Vein Open Sodium Chloride 2.5 ml 03/19/18 16:42 03/19/18 17:08 Saline Flush FLUSH 2.5 ml ASDIRECTED PRN Administration Keep Vein Open Departure - Departure Time of Disposition: 17:19 Disposition: DC/Tfer to Acute Hospital 02 Condition: Good Clinical Impression: Hip fracture - Discharge Information Referrals: PCP,Unknown [Primary Care Provider] - Forms: ED Department Discharge - My Orders Last 24 Hours: My Active Orders 03/19/18 16:42 Cardiac Monitoring [RC] . DIRECTED EKG Documentation Completion [RC] STAT Chest 1V Frontal [CR] Stat UA W/MICROSCOPIC [URIN] Stat Sodium Chloride 0.9% [Saline Flush] 10 ml FLUSH ASDIRECTED PRN Sodium Chloride 0.9% [Saline Flush] 2.5 ml FLUSH ASDIRECTED PRN Saline Lock Insert [OM.PC] Stat 03/19/18 16:43 Hip Min 2V or 3V w Pelvis Lt [CR] Stat 03/19/18 16:45 Sodium Chloride 0.9% [Normal Saline] 1,000 ml IV ASDIRECTED 03/19/18 16:49 COMPREHENSIVE METABOLIC PN,CMP [CHEM] Stat TROPONIN I [CHEM] Stat - Assessment/Plan Last 24 Hours: My Active Orders 03/19/18 16:42 Cardiac Monitoring [RC] . DIRECTED EKG Documentation Completion [RC] STAT Chest 1V Frontal [CR] Stat UA W/MICROSCOPIC [URIN] Stat Sodium Chloride 0.9% [Saline Flush] 10 ml FLUSH ASDIRECTED PRN Sodium Chloride 0.9% [Saline Flush] 2.5 ml FLUSH ASDIRECTED PRN Saline Lock Insert [OM.PC] Stat 03/19/18 16:43 Hip Min 2V or 3V w Pelvis Lt [CR] Stat 03/19/18 16:45 Sodium Chloride 0.9% [Normal Saline] 1,000 ml IV ASDIRECTED 03/19/18 16:49 COMPREHENSIVE METABOLIC PN,CMP [CHEM] Stat TROPONIN I [CHEM] Stat
[2018-03-19] MEDS ORDERED: Sodium Chloride 0.9% 2.5 ML Syringe FLUSH PRN (16:42)
[2018-03-19] MEDS ORDERED: Sodium Chloride 0.9% 10 ML Syringe FLUSH PRN (16:42)
[2018-03-19] MEDS ORDERED: Sodium Chloride 0.9% 1,000 ML IV SCH (16:45)
[2018-03-19 17:19] LABS: CHLORIDE,CL 109 mmol/L (98-107); SODIUM,NA 141 mmol/L (136-145)
--- NOTE | 2018-03-19 17:22 | CR ---
INDICATION: Injury, fall. TECHNIQUE: Chest 1 views COMPARISON: November 20, 2016. FINDINGS: Cardiovascular and mediastinum: Heart size and vasculature are normal in caliber and appearance. Lungs and pleural spaces: Lungs are clear. No sign of infiltrate or mass. No sign of pleural effusion. No pneumothorax. Bones and soft tissues: Arthritic changes are present in the right shoulder joint. No acute abnormality. IMPRESSION: No sign of acute injury or disease in the chest. Dictated by Dannie Damico MD @ Mar 19 2018 5:19PM Signed by Dr. Dannie Damico @ Mar 19 2018 5:20PM
--- NOTE | 2018-03-19 17:22 | CR ---
INDICATION: Fell TECHNIQUE: AP pelvis and 2 views left hip. FINDINGS: Moderately displaced markedly angulated acute fracture involving the left proximal femur involving the intratrochanteric region and distal femoral neck resulting in marked varus deformity. This fracture is comminuted with free fracture fragments that are not well visualized. Overlying soft tissue swelling. No dislocation of the left femoral head. Mild to moderate degenerative arthritis hips and mid and lower lumbar spine. Moderate osteopenia. Mild degenerate changes both SI joints. Remainder negative. Dictated by Jomar Posada MD @ Mar 19 2018 5:18PM Signed by Dr. Jomar Posada @ Mar 19 2018 5:20PM
[2018-03-19] MEDS: fentaNYL 100 MCG/2 ML SDV IVPUSH PRN ×2 (18:36→19:57)
[2018-03-19] MEDS ORDERED: fentaNYL 100 MCG/2 ML SDV IVPUSH PRN (19:52)
[2018-03-19 20:52] VITALS: BP 135/86
== END 2018-03-19 21:52 ==
LOC: MW.ED 16:33
DX: S72.002A Fracture of unspecified part of neck of left femur, initial encounter for closed fracture (principal); E11.9 Type 2 diabetes mellitus without complications; I10 Essential (primary) hypertension; G30.9 Alzheimer's disease, unspecified; F02.80 Dementia in other diseases classified elsewhere, unspecified severity, without behavioral disturbance, psychotic disturbance, mood disturbance, and anxiety; Z91.011 Allergy to milk products; Z88.5 Allergy status to narcotic agent; Z91.041 Radiographic dye allergy status; Z79.82 Long term (current) use of aspirin; Z79.899 Other long term (current) drug therapy; W01.0XXA Fall on same level from slipping, tripping and stumbling without subsequent striking against object, initial encounter; Y92.009 Unspecified place in unspecified non-institutional (private) residence as the place of occurrence of the external cause
CPT/HCPCS: 71045; 73502; 80053; 81001; 84484; 85025; 85610; 93005; 96360; 96361; 99285; J3010; J7040

== ENCOUNTER 2019-01-12 12:47 | Emergency (ER) | payer MEDICARE, MEDICAID, OTHER ==
--- NOTE | 2019-01-12 13:17 | EDM.PDOC ---
ED HPI GENERAL MEDICAL PROBLEM - General Chief Complaint: Lower Extremity Injury/Pain Stated Complaint: POSSIBLE HIP FRACTURE Time Seen by Provider: 01/12/19 13:17 Source of Information: Reports: Patient History Limitations: Reports: No Limitations - History of Present Illness INITIAL COMMENTS - FREE TEXT/NARRATIVE: HISTORY AND PHYSICAL: History of present illness: Patient is a 73-year-old female presents to the ED via EMS with complaint of right hip pain. She states this morning she woke up and was unable to move her leg. She denies injury or falls and states she does having pain in her right groin when she does move it. She denies back pain or injury and denies saddle anesthesia, bowel or bladder incontinence, numbness or tingling of lower extremities. Daughter states that she was up walking this morning and for the past couple of months she has been dragging her right leg and complaining of pain in her hip on and off. Daughter states she did have a "gentle fall" two months ago where she lowered herself to the ground after her foot slipped out in front of her. Patient does use a walker and wheelchair at home. Review of systems: As per history of present illness and below otherwise all systems reviewed and negative. Past medical history: As per history of present illness and as reviewed below otherwise noncontributory. Surgical history: As per history of present illness and as reviewed below otherwise noncontributory. Social history: No reported history of drug or alcohol abuse. Family history: As per history of present illness and as reviewed below otherwise noncontributory. Physical exam: General: Patient sitting comfortably in no acute distress and nontoxic appearing HEENT: Atraumatic, normocephalic, pupils reactive, negative for conjunctival pallor or scleral icterus, mucous membranes moist, throat clear, neck supple, nontender, trachea midline. No meningeal signs. Lungs: Clear to auscultation, breath sounds equal bilaterally, chest nontender. Heart: S1S2, regular, negative for clicks, rubs, or overt murmur. Abdomen: Soft, nondistended, nontender. Negative for masses or hepatosplenomegaly. Negative for costovertebral tenderness. No rigidity, rebound , guarding. Pelvis: Stable nontender. Genitourinary: Deferred. Rectal: Deferred. Extremities: Pain with flexion and extension of the hip and palpation of the right groin. There is no erythema or warmth and no lateral hip tenderness. No pain with ROM of knee or pain with palpation. Atraumatic, negative for cords or calf pain. Neurovascular unremarkable. Neuro: Awake, alert, oriented. Cranial nerves II through XII unremarkable. Cerebellum unremarkable. Motor and sensory unremarkable throughout. Exam nonfocal. Notes: Patient lives at home with family who assist her with ADLs including ambulating and toileting. They have no questions or concerns at this time and understand to follow up with PCP and return to ED as needed as discussed . Diagnostics: x-ray right hip, CBC, BMP Therapeutics: [] Prescriptions: Impression: Right hip pain Definitive disposition and diagnosis as appropriate pending reevaluation and review of above. - Related Data Allergies Allergy/AdvReac Type Severity Reaction Status Date / Time Dairy Products Allergy Diarrhea Verified 03/19/18 16:59 meperidine HCl [From Demerol] Allergy Hallucinati Verified 03/19/18 16:59 ons IVP Dye Allergy Hives Uncoded 03/19/18 16:59 Home Meds: Home Meds Donepezil HCl 20 mg PO BEDTIME 02/27/17 [History] Lisinopril 10 mg PO DAILY 02/27/17 [History] Memantine [Namenda] 5 mg PO DAILY 02/27/17 [History] hydroCHLOROthiazide [Hydrochlorothiazide] 25 mg PO DAILY 02/27/17 [History] Dorzolamide HCl/Timolol Maleat [Dorzolamide-Timolol Eye Drops] 1 drop EYEBOTH BID 01/12/19 [History] Gabapentin [Neurontin] 300 mg PO BEDTIME 01/12/19 [History] Levalbuterol HCl 3 ml IH Q6H PRN 01/12/19 [History] Olopatadine [Patanol 0.1% Ophth Soln] 1 drop EYEBOTH BID PRN 01/12/19 [History] Omeprazole 20 mg PO ACBREAKFAST 01/12/19 [History] Past Medical History HEENT History: Reports: Glaucoma Cardiovascular History: Reports: Hypertension Respiratory History: Reports: None Other Respiratory History: 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 Dementia Psychiatric History: Reports: Anxiety, Dementia, Depression Other Psychiatric History: hx: situational depression Endocrine/Metabolic History: Reports: Diabetes, Type II Hematologic History: Reports: None Immunologic History: Reports: None Oncologic (Cancer) History: Reports: None Dermatologic History: Reports: None - Infectious Disease History Infectious Disease History: Reports: Chicken Pox, Measles, Mumps - Past Surgical History HEENT Surgical History: Reports: None Cardiovascular Surgical History: Reports: None Respiratory Surgical History: Reports: None Other Female Surgeries/Procedures: Return to surgery post hysterectomy due to "clot formation" Other Musculoskeletal Surgeries/Procedures:: Left Rotator Cuff Repair Social & Family History - Family History Family Medical History: Noncontributory - Tobacco Use Smoking Status *Q: Former Smoker Used Tobacco, but Quit: Yes Month/Year Tobacco Last Used: 2008 - Caffeine Use Caffeine Use: Reports: Coffee - Recreational Drug Use Recreational Drug Use: No Review of Systems - Review of Systems Review Of Systems: Comprehensive ROS is negative, except as noted in HPI. ED EXAM, GENERAL - Physical Exam Exam: See Below (see dictation) Course - Vital Signs Last Recorded V/S: Last Vital Signs Temp 97.9 F 01/12/19 12:57 Pulse 73 01/12/19 12:57 Resp 18 01/12/19 12:57 BP 178/73 H 01/12/19 12:57 Pulse Ox 97 01/12/19 12:57 - Orders/Labs/Meds Labs: Laboratory Tests 01/12/19 01/12/19 Range/Units 13:37 13:37 WBC 5.81 (4.0-11.0) K/uL RBC 3.92 L (4.30-5.90) M/uL Hgb 11.4 L (12.0-16.0) g/dL Hct 35.1 L (36.0-46.0) % MCV 89.5 (80.0-98.0) fL MCH 29.1 (27.0-32.0) pg MCHC 32.5 (31.0-37.0) g/dL RDW Std Deviation 47.2 (28.0-62.0) fl RDW Coeff of Dyan 14 (11.0-15.0) % Plt Count 241 (150-400) K/uL MPV 9.90 (7.40-12.00) fL Neut % (Auto) 51.4 (48.0-80.0) % Lymph % (Auto) 31.2 (16.0-40.0) % [place] % (Auto) 10.0 (0.0-15.0) % Eos % (Auto) 6.2 (0.0-7.0) % Baso % (Auto) 1.2 (0.0-1.5) % Neut # (Auto) 3.0 (1.4-5.7) K/uL Lymph # (Auto) 1.8 (0.6-2.4) K/uL Sherman # (Auto) 0.6 (0.0-0.8) K/uL Eos # (Auto) 0.4 (0.0-0.7) K/uL Baso # (Auto) 0.1 (0.0-0.1) K/uL Nucleated RBC % 0.0 /100WBC Nucleated RBCs # 0 K/uL Sodium 141 (136-145) mmol/L Potassium 4.4 (3.5-5.1) mmol/L Chloride 107 (98-107) mmol/L Carbon Dioxide 25.1 (21.0-32.0) mmol/L BUN 27 H (7.0-18.0) mg/dL Creatinine 1.6 H (0.6-1.0) mg/dL Est Cr Clr Drug Dosing 24.03 mL/min Estimated GFR (MDRD) 31.4 ml/min Glucose 82 (74-106) mg/dL Calcium 9.0 (8.5-10.1) mg/dL Departure - Departure Time of Disposition: 14:27 Disposition: Home, Self-Care 01 Condition: Good Clinical Impression: Right hip pain - Discharge Information Referrals: Etienne Kline [Primary Care Provider] - Forms: ED Department Discharge Additional Instructions: The following information is given to patients seen in the emergency department who are being discharged to home. This information is to outline your options for follow-up care. We provide all patients seen in our emergency department with a follow-up referral. The need for follow-up, as well as the timing and circumstances, are variable depending upon the specifics of your emergency department visit. If you don't have a primary care physician on staff, we will provide you with a referral. We always advise you to contact your personal physician following an emergency department visit to inform them of the circumstance of the visit and for follow-up with them and/or the need for any referrals to a consulting specialist. The emergency department will also refer you to a specialist when appropriate. This referral assures that you have the opportunity for follow-up care with a specialist. All of these measure are taken in an effort to provide you with optimal care, which includes your follow-up. Under all circumstances we always encourage you to contact your private physician who remains a resource for coordinating your care. When calling for follow-up care, please make the office aware that this follow-up is from your recent emergency room visit. If for any reason you are refused follow-up, please contact the [facility] Emergency Department at and asked to speak to the emergency department charge nurse. [facility] [address] [place] [address] [id number] [address] [address] Follow up with primary care provider Return to ED as needed as discussed
--- NOTE | 2019-01-12 13:41 | CR ---
Right hip: AP and frog-leg lateral views right hip were obtained. Comparison: No previous right hip study is available. Moderate diffuse joint space narrowing seen within the right hip. Osteopenia is present. No fracture or other abnormality is appreciated. Impression: 1. Joint space narrowing. 2. Osteopenia. Diagnostic code #2 MTDD
[2019-01-12 14:17] LABS: CARBON DIOXIDE,CO2 25.1 mmol/L (21.0-32.0); POTASSIUM,K 4.4 mmol/L (3.5-5.1)
[2019-01-12 14:45] VITALS: BP 167/61; PULSE 64
== END 2019-01-12 14:45 | disposition home or self-care (01) ==
LOC: MW.ED 12:47
DX: M25.551 Pain in right hip (principal); I10 Essential (primary) hypertension; E11.9 Type 2 diabetes mellitus without complications; G30.9 Alzheimer's disease, unspecified; F02.80 Dementia in other diseases classified elsewhere, unspecified severity, without behavioral disturbance, psychotic disturbance, mood disturbance, and anxiety; Z79.899 Other long term (current) drug therapy; Z87.891 Personal history of nicotine dependence; Z88.5 Allergy status to narcotic agent; Z91.018 Allergy to other foods; Z91.048 Other nonmedicinal substance allergy status
CPT/HCPCS: 36415; 73502-26-RT; 73502-RT; 80048; 85025; 99284-25

== ENCOUNTER 2019-09-09 20:40 | Emergency (ER) | payer MEDICARE, OTHER, MEDICAID ==
[2019-09-09] MEDS ORDERED: Sodium Chloride 0.9% 2.5 ML Syringe FLUSH PRN (21:04)
[2019-09-09] MEDS ORDERED: Sodium Chloride 0.9% 10 ML Syringe FLUSH PRN (21:04)
[2019-09-09] MEDS ORDERED: Albuterol 0.083% 2.5 MG/3 ML Neb Soln NEB ONE (21:06)
--- NOTE | 2019-09-09 21:10 | EDM.PDOC ---
ED HPI GENERAL MEDICAL PROBLEM - General Chief Complaint: Respiratory Problem Stated Complaint: SEVERE COLD/SHORTNESS OF BREATHE Time Seen by Provider: 09/09/19 20:55 - History of Present Illness INITIAL COMMENTS - FREE TEXT/NARRATIVE: History of present illness The patient has a cough and chills since 6 days ago. Darted Zithromax and is taking 1 last dose tomorrow of her Z-Yinka. She does not feel like her breathing is any better. She has cough with sputum. She has pleuritic chest pain when she gets into a coughing spell or exerts herself. She has documented fever. She was tested for COVID-19 influenza and strep 3 days ago. They were negative. She has not had an x-ray during this episode. I reviewed her recent charts and is no other new symptoms other than what we have described above. Does have significant memory problems that seem to be fairly profound but intermittent. [] Review of systems: As per history of present illness and below otherwise all systems reviewed and negative. Past medical history: As per history of present illness and as reviewed below otherwise noncontributory. Surgical history: As per history of present illness and as reviewed below otherwise noncontributory. Social history: No reported history of drug or alcohol abuse. Family history: As per history of present illness and as reviewed below otherwise noncontributory. Physical exam: Constitutional - well developed, well-nourished and in no acute distress HEENT - normocephalic, no evidence of trauma - external nose and mouth normal - no mass in neck and no JVD - mucosae moist EYES - full EOM, PERRL, no icterus - no evidence of inflammation, injection, or drainage Respiratory - no respiratory distress, equal bilateral expansion, the patient has wheezes on expiration higher up in the right side than on the left but in both bases. Cardiovascular - Regular Rhythm with S1 and S2 appreciated and no murmur, gallop or rub. Peripheral pulses symmetrically normal in all four extremities GI - abdomen soft without distension or organomegaly - normal bowel sounds - no guard or rebound Musculoskeletal no gross deformity of long bones or joints - no tenderness, swelling or edema Neurologic - Alert and oriented times four - CN II-XII grossly intact - motor sensory and coordination symmetrically normal Psychiatric - appropriate mood and affect with normal thought content Hematologic - No petechiae or purpura - mucosa appropriate color and sclera not pale - normal nail bed color and refill Integument - no rash or evidence of trauma - normal turgor Diagnostics: [] Therapeutics: [] Impression: [] Plan: [] Definitive disposition and diagnosis as appropriate pending reevaluation and review of above. - Related Data Allergies Allergy/AdvReac Type Severity Reaction Status Date / Time Dairy Products Allergy Diarrhea Verified 03/19/18 16:59 meperidine HCl [From Demerol] Allergy Hallucinati Verified 03/19/18 16:59 ons IVP Dye Allergy Hives Uncoded 03/19/18 16:59 Home Meds: Home Meds Albuterol Sulfate [Proventil Hfa] 6.7 gm IH Q6HR PRN #1 [email or web address] 09/09/19 [Rx] Aspirin [Halfprin] 1 tab PO DAILY 09/09/19 [History] Calcium Carbonate/Vitamin D3 [Calcium 600 + Vit D 400 Softgl] 1 tab PO DAILY 09/09/19 [History] Diclofenac Sodium [Voltaren] 1 dose TOP ASDIRECTED PRN 09/09/19 [History] Dorzolamide HCl/Pf [Dorzolamide 2% Eye Drop] 1 drop EYEBOTH BID 09/09/19 [History] Esomeprazole [NexIUM] 20 mg PO DAILY 09/09/19 [History] Furosemide [Lasix] 20 mg PO DAILY 09/09/19 [History] Gabapentin [Neurontin] 1 cap PO DAILY 09/09/19 [History] Memantine [Namenda] 5 mg PO DAILY 09/09/19 [History] Mirtazapine 1 tab PO BEDTIME 09/09/19 [History] Ramipril [Altace] 2.5 mg PO DAILY 09/09/19 [History] predniSONE 20 mg PO WITHBREAKFAST #5 tab 09/09/19 [Rx] Past Medical History HEENT History: Reports: Glaucoma Cardiovascular History: Reports: Hypertension Respiratory History: Reports: None Other Respiratory History: 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 Dementia Psychiatric History: Reports: Anxiety, Dementia, Depression Other Psychiatric History: hx: situational depression Endocrine/Metabolic History: Reports: Diabetes, Type II Hematologic History: Reports: None Immunologic History: Reports: None Oncologic (Cancer) History: Reports: None Dermatologic History: Reports: None - Infectious Disease History Infectious Disease History: Reports: Chicken Pox, Measles, Mumps - Past Surgical History HEENT Surgical History: Reports: None Cardiovascular Surgical History: Reports: None Respiratory Surgical History: Reports: None Other Female Surgeries/Procedures: Return to surgery post hysterectomy due to "clot formation" Other Musculoskeletal Surgeries/Procedures:: Left Rotator Cuff Repair Social & Family History - Family History Family Medical History: Noncontributory - Caffeine Use Caffeine Use: Reports: Coffee ED ROS GENERAL - Review of Systems Review Of Systems: Comprehensive ROS is negative, except as noted in HPI. ED EXAM, GENERAL - Physical Exam Exam: See Below Free Text/Narrative:: My physical exam as in the HPI Course - Vital Signs Text/Narrative:: The patient stopped coughing after the breathing treatment and is feeling better. The lungs are clear. The patient will be given a chamber and a prescription for albuterol inhaler and prednisone. The patient will be discharged in satisfactory condition. Last Recorded V/S: Last Vital Signs Temp 98.3 F 09/09/19 21:02 Pulse 70 09/09/19 21:02 Resp 18 09/09/19 21:02 BP 175/61 H 09/09/19 21:02 Pulse Ox 95 09/09/19 21:02 - Orders/Labs/Meds Orders: Active Orders 24 hr Category Date Time Status RT Aerosol Therapy [RC] ASDIRECTED Care 09/09/19 21:06 Active Sodium Chloride 0.9% [Saline Flush] Med 09/09/19 21:04 Active 10 ml FLUSH ASDIRECTED PRN Sodium Chloride 0.9% [Saline Flush] Med 09/09/19 21:04 Active 2.5 ml FLUSH ASDIRECTED PRN Saline Lock Insert [OM.PC] Stat Oth 09/09/19 21:04 Ordered Medication Orders Sodium Chloride (Saline Flush) 10 ml FLUSH ASDIRECTED PRN PRN Reason: Keep Vein Open Sodium Chloride (Saline Flush) 2.5 ml FLUSH ASDIRECTED PRN PRN Reason: Keep Vein Open Labs: Laboratory Tests 09/09/19 09/09/19 Range/Units 21:10 21:10 WBC 7.11 (4.0-11.0) K/uL RBC 3.77 L (4.30-5.90) M/uL Hgb 11.0 L (12.0-16.0) g/dL Hct 34.1 L (36.0-46.0) % MCV 90.5 (80.0-98.0) fL MCH 29.2 (27.0-32.0) pg MCHC 32.3 (31.0-37.0) g/dL RDW Std Deviation 45.1 (28.0-62.0) fl RDW Coeff of Dyan 14 (11.0-15.0) % Plt Count 285 (150-400) K/uL MPV 10.40 (7.40-12.00) fL Neut % (Auto) 49.9 (48.0-80.0) % Lymph % (Auto) 37.1 (16.0-40.0) % Sampson % (Auto) 6.3 (0.0-15.0) % Eos % (Auto) 5.9 (0.0-7.0) % Baso % (Auto) 0.8 (0.0-1.5) % Neut # (Auto) 3.5 (1.4-5.7) K/uL Lymph # (Auto) 2.6 H (0.6-2.4) K/uL Sampson # (Auto) 0.5 (0.0-0.8) K/uL Eos # (Auto) 0.4 (0.0-0.7) K/uL Baso # (Auto) 0.1 (0.0-0.1) K/uL Nucleated RBC % 0.0 /100WBC Nucleated RBCs # 0 K/uL Sodium 144 (136-145) mmol/L Potassium 3.9 (3.5-5.1) mmol/L Chloride 108 H (98-107) mmol/L Carbon Dioxide 19.7 L (21.0-32.0) mmol/L BUN 32 H (7.0-18.0) mg/dL Creatinine 2.2 H (0.6-1.0) mg/dL Est Cr Clr Drug Dosing TNP Estimated GFR (MDRD) 21.7 ml/min Glucose 132 H (74-106) mg/dL Calcium 8.9 (8.5-10.1) mg/dL Total Bilirubin 0.2 (0.2-1.0) mg/dL AST 17 (15-37) IU/L ALT 22 (14-63) IU/L Alkaline Phosphatase 94 (46-116) U/L Total Protein 7.7 (6.4-8.2) g/dL Albumin 4.0 (3.4-5.0) g/dL Globulin 3.7 (2.6-4.0) g/dL Albumin/Globulin Ratio 1.1 (0.9-1.6) Meds: Medications Generic Name Dose Route Start Last Admin Trade Name Freq PRN Reason Stop Dose Admin Sodium Chloride 10 ml 09/09/19 21:04 Saline Flush FLUSH ASDIRECTED PRN Keep Vein Open Sodium Chloride 2.5 ml 09/09/19 21:04 Saline Flush FLUSH ASDIRECTED PRN Keep Vein Open Discontinued Medications Generic Name Dose Route Start Last Admin Trade Name Freq PRN Reason Stop Dose Admin Albuterol 2.5 mg 09/09/19 21:06 Proventil Neb Soln NEB 09/09/19 21:07 ONETIME ONE Departure - Departure Time of Disposition: 22:20 Disposition: Home, Self-Care 01 Condition: Good Clinical Impression: Acute bronchiolitis - Discharge Information Prescriptions: predniSONE 20 mg PO WITHBREAKFAST #5 tab Albuterol Sulfate [Proventil Hfa] 6.7 gm IH Q6HR PRN #1 [email or web address] PRN Reason: Cough Instructions: Acute Bronchitis, Adult, [id number] Referrals: Mary Andres MD [Primary Care Provider] - Forms: ED Department Discharge Additional Instructions: The following information is given to patients seen in the emergency department who are being discharged to home. This information is to outline your options for follow-up care. We provide all patients seen in our emergency department with a follow-up referral. The need for follow-up, as well as the timing and circumstances, are variable depending upon the specifics of your emergency department visit. If you don't have a primary care physician on staff, we will provide you with a referral. We always advise you to contact your personal physician following an emergency department visit to inform them of the circumstance of the visit and for follow-up with them and/or the need for any referrals to a consulting specialist. The emergency department will also refer you to a specialist when appropriate. This referral assures that you have the opportunity for follow-up care with a specialist. All of these measure are taken in an effort to provide you with optimal care, which includes your follow-up. Under all circumstances we always encourage you to contact your private physician who remains a resource for coordinating your care. When calling for follow-up care, please make the office aware that this follow-up is from your recent emergency room visit. If for any reason you are refused follow-up, please contact the [facility] Emergency Department at and asked to speak to the emergency department charge nurse. [facility] [address] [place] [address] [place] [address] Sepsis Event Note (ED) - Focused Exam Vital Signs: Vital Signs Temp Pulse Resp BP Pulse Ox 09/09/19 21:02 98.3 F 70 18 175/61 H 95 - My Orders Last 24 Hours: My Active Orders 09/09/19 21:04 Sodium Chloride 0.9% [Saline Flush] 10 ml FLUSH ASDIRECTED PRN Sodium Chloride 0.9% [Saline Flush] 2.5 ml FLUSH ASDIRECTED PRN Saline Lock Insert [OM.PC] Stat 09/09/19 21:06 RT Aerosol Therapy [RC] ASDIRECTED - Assessment/Plan Last 24 Hours: My Active Orders 09/09/19 21:04 Sodium Chloride 0.9% [Saline Flush] 10 ml FLUSH ASDIRECTED PRN Sodium Chloride 0.9% [Saline Flush] 2.5 ml FLUSH ASDIRECTED PRN Saline Lock Insert [OM.PC] Stat 09/09/19 21:06 RT Aerosol Therapy [RC] ASDIRECTED
[2019-09-09 21:42] LABS: BLOOD UREA NITROGEN,BUN 32 mg/dL (7.0-18.0); CARBON DIOXIDE,CO2 19.7 mmol/L (21.0-32.0); CHLORIDE,CL 108 mmol/L (98-107); GLUCOSE RANDOM 132 mg/dL (74-106); POTASSIUM,K 3.9 mmol/L (3.5-5.1); SODIUM,NA 144 mmol/L (136-145)
--- NOTE | 2019-09-09 21:53 | CR ---
INDICATION: Cough for 7 days COMPARISON: 03/19/2018 FINDINGS: PA and lateral views of the chest were obtained. The lungs remain clear. There is no sign of any diffuse or focal infiltrate. There is no sign of a pleural effusion. The heart is normal in size. The mediastinum is normal in appearance. The osseous structures are normal in appearance for the patient`s age. IMPRESSION: Normal chest 2 views. Dictated by Nils Perales MD @ Sep 09 2019 9:50PM Signed by Dr. Nils Perales @ Sep 09 2019 9:52PM
[2019-09-10 01:38] VITALS: BP 160/59; PULSE 74
== END 2019-09-09 22:30 | disposition home or self-care (01) ==
LOC: MW.ED 20:40
DX: J21.9 Acute bronchiolitis, unspecified (principal); F41.9 Anxiety disorder, unspecified; F32.9 Major depressive disorder, single episode, unspecified; E11.9 Type 2 diabetes mellitus without complications; G30.9 Alzheimer's disease, unspecified; F02.80 Dementia in other diseases classified elsewhere, unspecified severity, without behavioral disturbance, psychotic disturbance, mood disturbance, and anxiety; I10 Essential (primary) hypertension; Z88.5 Allergy status to narcotic agent; Z91.041 Radiographic dye allergy status; Z79.82 Long term (current) use of aspirin; Z79.899 Other long term (current) drug therapy; Z87.891 Personal history of nicotine dependence
CPT/HCPCS: 36415; 71046; 71046-26; 80053; 85025; 94640; 99283; 99284-25

== ENCOUNTER 2020-01-29 15:25 | Emergency (ER) | payer MEDICARE, OTHER, MEDICAID ==
--- NOTE | 2020-01-29 16:48 | EDM.PDOC ---
ED HPI GENERAL MEDICAL PROBLEM - General Chief Complaint: General Stated Complaint: EMS ARRIVAL Time Seen by Provider: 01/29/20 15:34 Source of Information: Reports: Patient History Limitations: Reports: No Limitations - History of Present Illness INITIAL COMMENTS - FREE TEXT/NARRATIVE: Presents via EMS. 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 The patient states she has no idea why she is here. She denies pain, shortness of breath, vomiting or any other symptoms. On further questioning it is apparent that the patient has some dementia issues. I then called her daughter Jazmín. Jazmín states her mother suffers from dementia. According to Jazmín the patient tested positive for Covid 8 days ago. Seen at [facility] 2 days ago and was given a course of antibiotics and 2 inhalers. In the interim she has developed increased confusion, fever, nausea, weakness, a congested cough and shortness of breath. Not been vomiting but is not taking in much oral fluids. Three days ago she had a fever of 103. Family has been giving her Tylenol every 4 hours to keep her fever down. She lives with a granddaughter and her family. - Related Data Allergies Allergy/AdvReac Type Severity Reaction Status Date / Time Dairy Products Allergy Diarrhea Verified 01/29/20 15:29 meperidine HCl [From Demerol] Allergy Hallucinati Verified 01/29/20 15:29 ons IVP Dye Allergy Hives Uncoded 01/29/20 15:29 Home Meds: Home Meds Albuterol Sulfate [Proventil Hfa] 6.7 gm IH Q6HR PRN #1 [email or web address] 09/09/19 [Rx] Aspirin [Halfprin] 1 tab PO DAILY 09/09/19 [History] Calcium Carbonate/Vitamin D3 [Calcium 600 + Vit D 400 Softgl] 1 tab PO DAILY 09/09/19 [History] Diclofenac Sodium [Voltaren] 1 dose TOP ASDIRECTED PRN 09/09/19 [History] Dorzolamide HCl/Pf [Dorzolamide 2% Eye Drop] 1 drop EYEBOTH BID 09/09/19 [History] Esomeprazole [NexIUM] 20 mg PO DAILY 09/09/19 [History] Furosemide [Lasix] 20 mg PO DAILY 09/09/19 [History] Gabapentin [Neurontin] 1 cap PO DAILY 09/09/19 [History] Memantine [Namenda] 5 mg PO DAILY 09/09/19 [History] Mirtazapine 1 tab PO BEDTIME 09/09/19 [History] Ramipril [Altace] 2.5 mg PO DAILY 09/09/19 [History] predniSONE 20 mg PO WITHBREAKFAST #5 tab 09/09/19 [Rx] Past Medical History HEENT History: Reports: Glaucoma Cardiovascular History: Reports: Hypertension Respiratory History: Reports: None Other Respiratory History: 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 Dementia Psychiatric History: Reports: Anxiety, Dementia, Depression Other Psychiatric History: hx: situational depression Endocrine/Metabolic History: Reports: Diabetes, Type II Hematologic History: Reports: None Immunologic History: Reports: None Oncologic (Cancer) History: Reports: None Dermatologic History: Reports: None - Infectious Disease History Infectious Disease History: Reports: Chicken Pox, Measles, Mumps - Past Surgical History HEENT Surgical History: Reports: None Cardiovascular Surgical History: Reports: None Respiratory Surgical History: Reports: None GI Surgical History: Reports: None Other Female Surgeries/Procedures: Return to surgery post hysterectomy due to "clot formation" Other Musculoskeletal Surgeries/Procedures:: Left Rotator Cuff Repair Social & Family History - Family History Family Medical History: No Pertinent Family History - Tobacco Use Tobacco Use Status *Q: Unknown Ever Used Tobacco - Caffeine Use Caffeine Use: Reports: None - Recreational Drug Use Recreational Drug Use: No ED ROS GENERAL - Review of Systems Review Of Systems: Unable To Obtain Reason Not Obtained: Dementia ED EXAM, GENERAL - Physical Exam Exam: See Below Exam Limited By: Other (Dementia) General Appearance: Alert, No Apparent Distress Ears: Normal External Exam Nose: Normal Inspection Throat/Mouth: Normal Inspection Head: Atraumatic, Normocephalic Neck: Normal Inspection Respiratory/Chest: No Respiratory Distress, Lungs Clear, Normal Breath Sounds Cardiovascular: Normal Peripheral Pulses, Regular Rate, Rhythm GI/Abdominal: Soft, Non-Tender, No Distention Back Exam: Normal Inspection Extremities: Normal Inspection Neurological: Alert, Confused, Disoriented, Memory Loss Recent Events Psychiatric: Normal Affect, Normal Mood Skin Exam: Warm, Dry, Intact, Normal Color, No Rash Lymphatic: No Adenopathy Course - Vital Signs Last Recorded V/S: Last Vital Signs Temp 36.4 C 01/29/20 15:29 Pulse 71 01/29/20 16:23 Resp 18 01/29/20 16:23 BP 115/49 L 01/29/20 16:23 Pulse Ox 93 L 01/29/20 16:23 - Orders/Labs/Meds Orders: Active Orders 24 hr Category Date Time Status Sodium Chloride 0.9% [Normal Saline] 1,000 ml Med 01/29/20 18:24 Active IV .Bolus Medication Orders Sodium Chloride (Normal Saline) 1,000 mls @ 999 mls/hr IV .Bolus ONE Stop: 01/29/20 19:24 Last Admin: 01/29/20 19:03 Dose: Not Given Documented by: JOSE Labs: Laboratory Tests 01/29/20 01/29/20 Range/Units 16:30 16:30 WBC 4.91 (4.0-11.0) K/uL RBC 3.86 L (4.30-5.90) M/uL Hgb 11.2 L (12.0-16.0) g/dL Hct 34.5 L (36.0-46.0) % MCV 89.4 (80.0-98.0) fL MCH 29.0 (27.0-32.0) pg MCHC 32.5 (31.0-37.0) g/dL RDW Std Deviation 48.6 (28.0-62.0) fl RDW Coeff of Dyan 15 (11.0-15.0) % Plt Count 196 (150-400) K/uL MPV 10.50 (7.40-12.00) fL Neut % (Auto) 75.0 (48.0-80.0) % Lymph % (Auto) 16.9 (16.0-40.0) % Crockett % (Auto) 7.1 (0.0-15.0) % Eos % (Auto) 0.8 (0.0-7.0) % Baso % (Auto) 0.2 (0.0-1.5) % Neut # (Auto) 3.7 (1.4-5.7) K/uL Lymph # (Auto) 0.8 (0.6-2.4) K/uL Crockett # (Auto) 0.4 (0.0-0.8) K/uL Eos # (Auto) 0.0 (0.0-0.7) K/uL Baso # (Auto) 0.0 (0.0-0.1) K/uL Nucleated RBC % 0.0 /100WBC Nucleated RBCs # 0 K/uL Sodium 146 H (136-145) mmol/L Potassium 4.1 (3.5-5.1) mmol/L Chloride 114 H (98-107) mmol/L Carbon Dioxide 15.6 L (21.0-32.0) mmol/L BUN 34 H (7.0-18.0) mg/dL Creatinine 2.1 H (0.6-1.0) mg/dL Est Cr Clr Drug Dosing 17.95 mL/min Estimated GFR (MDRD) 22.9 ml/min Glucose 97 (74-106) mg/dL Calcium 9.3 (8.5-10.1) mg/dL Total Bilirubin 0.3 (0.2-1.0) mg/dL AST 34 (15-37) IU/L ALT 21 (14-63) IU/L Alkaline Phosphatase 79 (46-116) U/L Total Protein 7.4 (6.4-8.2) g/dL Albumin 3.6 (3.4-5.0) g/dL Globulin 3.8 (2.6-4.0) g/dL Albumin/Globulin Ratio 0.9 (0.9-1.6) Meds: Medications Generic Name Dose Route Start Last Admin Trade Name Freq PRN Reason Stop Dose Admin Sodium Chloride 1,000 mls @ 999 mls/hr 01/29/20 18:24 01/29/20 19:03 Normal Saline IV 01/29/20 19:24 Not Given .Bolus ONE Discontinued Medications Generic Name Dose Route Start Last Admin Trade Name Freq PRN Reason Stop Dose Admin Ondansetron HCl 4 mg 01/29/20 18:25 01/29/20 19:04 Zofran IVPUSH 01/29/20 18:26 Not Given ONETIME ONE - Re-Assessments/Exams Free Text/Narrative Re-Assessment/Exam: 01/29/20 19:06 This patient positive Covid PCR test on Tuesday. She currently has symptoms of: an increase in her baseline confusion, fever, weakness, mild shortness of breath and a cough. On room air lying in bed her oxygen saturations are 88 to 90%. On 4 L/min lying in bed the patient's oxygen saturations are 94%. She is hypoxic on room air. Her chest x-ray reveals mild hazy infiltrate in the left lateral mid lung consistent with COVID-19 infection. She was seen in primary care 3 days ago and was prescribed a budesonide HFA and levalbuterol nebulizer treatments 4 times a day which she had been doing. At the current time this facility does not have a COVID bed to hospitalize the patient. Free Text/Narrative Re-Assessment/Exam: 01/29/20 19:15 Phone call to the patient's daughter, Jazmín. Discussion regarding evaluation here in the emergency room including chest x-ray and lab results. Her lab results are essentially the same as they were in August. She has been drinking water here in the emergency room. Her chest x-ray reveals mild Covid pneumonia. She is mildly hypoxic. We do not have a Covid bed but we will send her home on supplemental oxygen. Need to follow-up with her primary providers at the [facility]. Her daughter voices understanding. Departure - Departure Time of Disposition: 19:15 Disposition: Home, Self-Care 01 Condition: Good Clinical Impression: COVID-19, Pneumonia due to 2019 novel coronavirus, Hypoxemia - Discharge Information Referrals: Mary Andres MD [Primary Care Provider] - Forms: ED Department Discharge Additional Instructions: The following information is given to patients seen in the emergency department who are being discharged to home. This information is to outline your options for follow-up care. We provide all patients seen in our emergency department w ith a follow-up referral. The need for follow-up, as well as the timing and circumstances, are variable depending upon the specifics of your emergency department visit. If you don't have a primary care physician on staff, we will provide you with a referral. We always advise you to contact your personal physician following an emergency department visit to inform them of the circumstance of the visit and for follow-up with them and/or the need for any referrals to a consulting specialist. The emergency department will also refer you to a specialist when appropriate. This referral assures that you have the opportunity for follow-up care with a specialist. All of these measure are taken in an effort to provide you with optimal care, which includes your follow-up. Under all circumstances we always encourage you to contact your private physician who remains a resource for coordinating your care. When calling for follow-up care, please make the office aware that this follow-up is from your recent emergency room visit. If for any reason you are refused follow-up, please contact the [facility] Emergency Department at and asked to speak to the emergency department charge nurse. 1. Continue inhaler and breathing treatments as previously prescribed 2. Push Oral fluids 3. Wear oxygen cannula day and night. 4. Follow-up with your primary provider at [facility] Sepsis Event Note (ED) - Evaluation Sepsis Screening Result: No Definite Risk - Focused Exam Vital Signs: Vital Signs Temp Pulse Resp BP Pulse Ox 01/29/20 16:23 71 18 115/49 L 93 L 01/29/20 15:29 36.4 C 74 18 107/81 94 L - My Orders Last 24 Hours: My Active Orders 01/29/20 18:24 Sodium Chloride 0.9% [Normal Saline] 1,000 ml IV .Bolus - Assessment/Plan Last 24 Hours: My Active Orders 01/29/20 18:24 Sodium Chloride 0.9% [Normal Saline] 1,000 ml IV .Bolus
[2020-01-29 17:29] LABS: CARBON DIOXIDE,CO2 15.6 mmol/L (21.0-32.0); POTASSIUM,K 4.1 mmol/L (3.5-5.1)
--- NOTE | 2020-01-29 18:18 | CR ---
HISTORY: Hypoxia, cough. COVID-19 positive. COMPARISON: 09/09/2019 FINDINGS: A portable erect AP view of the chest was obtained at 1703 hours. There is new mild hazy infiltrate in the left lateral mid lung. While this is nonspecific, it is consistent with COVID-19 infection. The rest of the chest is clear. The heart remains normal in size. The mediastinum is normal in appearance. The osseous structures are normal in appearance for the patient`s age. IMPRESSION: New mild hazy infiltrate in the left lateral mid lung. While nonspecific, this is consistent with COVID-19 infection. Dictated by Nils Perales MD @ Jan 29 2020 6:16PM Signed by Dr. Nils Perales @ Jan 29 2020 6:17PM
[2020-01-29] MEDS ORDERED: Sodium Chloride 0.9% 1,000 ML IV ONE (18:24)
[2020-01-29] MEDS ORDERED: Ondansetron 4 MG/2 ML SDV IVPUSH ONE (18:25)
[2020-01-29 22:52] VITALS: BP 110/68; PULSE 62
== END 2020-01-29 20:58 | disposition home or self-care (01) ==
LOC: MW.ED 15:25
DX: U07.1 COVID-19 (principal); J12.89 Other viral pneumonia; R09.02 Hypoxemia; E11.9 Type 2 diabetes mellitus without complications; G30.9 Alzheimer's disease, unspecified; F02.80 Dementia in other diseases classified elsewhere, unspecified severity, without behavioral disturbance, psychotic disturbance, mood disturbance, and anxiety; Z91.011 Allergy to milk products; Z88.5 Allergy status to narcotic agent; Z91.041 Radiographic dye allergy status; Z79.82 Long term (current) use of aspirin; Z79.899 Other long term (current) drug therapy; Z87.891 Personal history of nicotine dependence
CPT/HCPCS: 36415; 71045; 71045-26; 80053; 85025; 99284; 99285-25

== ENCOUNTER 2020-02-11 17:37 | Inpatient (IN) | payer MEDICARE, OTHER ==
[2020-02-11] MEDS ORDERED: Sodium Chloride 0.9% 10 ML Syringe FLUSH PRN (17:41)
[2020-02-11] MEDS ORDERED: Sodium Chloride 0.9% 2.5 ML Syringe FLUSH PRN (17:41)
--- NOTE | 2020-02-11 17:56 | EDM.PDOC ---
<Jared Caruso - Last Filed: 02/11/20 18:56> ED HPI GENERAL MEDICAL PROBLEM - General Chief Complaint: General Stated Complaint: FATIGUE Time Seen by Provider: 02/11/20 17:40 - History of Present Illness INITIAL COMMENTS - FREE TEXT/NARRATIVE: 74-year-old female with a history of significant Alzheimer's disease and renal insufficiency who lives at home with her granddaughter who is her primary hourly caregiver. She is presenting with worsening altered mental status poor p.o. intake generalized weakness and confusion. The patient and the rest of her family developed COVID-19 at the end of December. The patient tested positive on January 20. She was seen in ER on the she ended up being discharged with oxygen. She has remained on 4 L nasal cannula since that time though family notes it is quite difficult to maintain the nasal cannula on the patient. They have noticed a gradual decline since then with very minimal p.o. intake minimal food and very minimal fluids. This is associated with worsening generalized weakness patient is now bedbound and has been for the last 5 days. Patient is also had significantly more confusion. No vomiting no fever patient is complaining of left lateral rib discomfort particularly with coughing. No alleviating factors or associated symptoms. - Related Data Allergies Allergy/AdvReac Type Severity Reaction Status Date / Time Dairy Products Allergy Diarrhea Verified 01/29/20 15:29 meperidine HCl [From Demerol] Allergy Hallucinati Verified 01/29/20 15:29 ons shellfish derived Allergy Cannot Verified 02/11/20 17:41 Remember IVP Dye Allergy Hives Uncoded 01/29/20 15:29 Home Meds: Home Meds Albuterol Sulfate [Proventil Hfa] 6.7 gm IH Q6HR PRN #1 [email or web address] 09/09/19 [Rx] Aspirin [Halfprin] 1 tab PO DAILY 09/09/19 [History] Calcium Carbonate/Vitamin D3 [Calcium 600 + Vit D 400 Softgl] 1 tab PO DAILY 09/09/19 [History] Diclofenac Sodium [Voltaren] 1 dose TOP ASDIRECTED PRN 09/09/19 [History] Dorzolamide HCl/Pf [Dorzolamide 2% Eye Drop] 1 drop EYEBOTH BID 09/09/19 [History] Esomeprazole [NexIUM] 20 mg PO DAILY 09/09/19 [History] Furosemide [Lasix] 20 mg PO DAILY 09/09/19 [History] Gabapentin [Neurontin] 1 cap PO DAILY 09/09/19 [History] Memantine [Namenda] 5 mg PO DAILY 09/09/19 [History] Mirtazapine 1 tab PO BEDTIME 09/09/19 [History] Ramipril [Altace] 2.5 mg PO DAILY 09/09/19 [History] predniSONE 20 mg PO WITHBREAKFAST #5 tab 09/09/19 [Rx] Past Medical History HEENT History: Reports: Glaucoma Cardiovascular History: Reports: Hypertension Respiratory History: Reports: None Other Respiratory History: Reports 40 yr history of smoking, 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 Dementia Psychiatric History: Reports: Anxiety, Dementia, Depression Other Psychiatric History: hx: situational depression Endocrine/Metabolic History: Reports: Diabetes, Type II Hematologic History: Reports: None Immunologic History: Reports: None Oncologic (Cancer) History: Reports: None Dermatologic History: Reports: None - Infectious Disease History Infectious Disease History: Reports: Chicken Pox, Measles, Mumps - Past Surgical History HEENT Surgical History: Reports: None Cardiovascular Surgical History: Reports: None Respiratory Surgical History: Reports: None GI Surgical History: Reports: None Other Female Surgeries/Procedures: Return to surgery post hysterectomy due to "clot formation" Other Musculoskeletal Surgeries/Procedures:: Left Rotator Cuff Repair Social & Family History - Family History Family Medical History: No Pertinent Family History - Caffeine Use Caffeine Use: Reports: None ED ROS GENERAL - Review of Systems Review Of Systems: See Below Free Text/Narrative/Comment: General: No fever. Skin: No rash. ENT: No sore throat. Neck: No neck stiffness. Respiratory: Per HPI Cardiac: Per HPI Gastrointestinal: No vomiting Urinary: No hematuria Musculoskeletal: No myalgias/arthralgias. Neurologic: Per HPI ED EXAM, GENERAL - Physical Exam Exam: See Below Free Text/Narrative:: General Appearance: No acute distress, appears comfortable Skin: No rash HEENT: Normocephalic/atraumatic, sclera anicteric, mucous membranes dry Neck: Normal range of motion Chest and Lungs: Bilateral breath sounds, clear to auscultation Cardiovascular: Regular rate and rhythm, no murmur Abdomen: Soft, non-tender Back: Normal Musculoskeletal: No edema or tenderness Neurologic: awake and alert oriented x1, moves all 4 extremities well Psychiatric: Cooperative #1 Interpretation EKG Date: 02/11/20 Time: 17:45 EKG Interpretation Comments: Sinus rhythm with a rate of 77 normal axis and intervals with QTC of 450 no acute ischemia Departure - Departure Disposition: Admitted As Inpatient 64 Clinical Impression: JULIUS (acute kidney injury), Dehydration Failure to thrive Qualifiers: Failure to thrive age range: in adult Qualified Code(s): R62.7 - Adult failure to thrive - Discharge Information Sepsis Event Note (ED) - Evaluation Sepsis Screening Result: No Definite Risk - Assessment/Plan Assessment:: 74-year-old female with advanced Alzheimer's disease presenting with gradual decline in the setting of recent coronavirus infection. Given the data that she tested positive she should no longer be infectious. Overlying pneumonia considered I think it is less likely but chest x-ray ordered. UTI is certainly a consideration patient has a history of electrolyte disturbance and renal insufficiency so worsening renal dysfunction is certainly a possibility. ACS felt very unlikely EKG is without acute ischemia and troponin is pending. This could also represent a subacute worsening of her Alzheimer's in the setting of her recent infection. Final disposition pending results of above discussion with family. Patient's imaging is without acute ischemia. Chest x-ray reveals new bilateral coarse opacities. Patient still not been released from quarantine by the state we do not have any record of her Covid test. We will send repeat Covid and flu swab. All labs remain pending at this time. Assessment of these reassessment and final disposition has been signed out to Dr. Mayes <Aleksandr Mayes - Last Filed: 02/11/20 21:24> Course - Vital Signs Last Recorded V/S: Last Vital Signs Temp 97.9 F 02/11/20 17:42 Pulse 92 02/11/20 19:04 Resp 20 02/11/20 19:04 BP 106/50 L 02/11/20 19:04 Pulse Ox 93 L 02/11/20 19:04 - Orders/Labs/Meds Orders: Active Orders 24 hr Category Date Time Status Urinary Catheter Assessment [RC] ASDIRECTED Care 02/11/20 19:29 Active Urinary Catheter Insertion [Insert Urinary Catheter] [ Care 02/11/20 19:30 Ordered OM.PC] Q24H COVID-19/FLU A+B [MOLEC] Stat Lab 02/11/20 18:55 Ordered URINALYSIS W/MICROSCOPIC [UA W/MICROSCOPIC] [URIN] Stat Lab 02/11/20 21:15 Results Dextrose 50% in Water Med 02/11/20 19:43 Active 50 ml IV ASDIRECTED PRN Glucagon,Human Recombinant [GlucaGen] Med 02/11/20 19:43 Active 1 mg IM ASDIRECTED PRN Sodium Chloride 0.9% [Saline Flush] Med 02/11/20 17:41 Active 10 ml FLUSH ASDIRECTED PRN Sodium Chloride 0.9% [Saline Flush] Med 02/11/20 17:41 Active 2.5 ml FLUSH ASDIRECTED PRN Saline Lock Insert [OM.PC] Stat Oth 02/11/20 17:41 Ordered Medication Orders Dextrose/Water (Dextrose 50% In Water) 50 ml IV ASDIRECTED PRN PRN Reason: Hypoglycemia Glucagon (Glucagen) 1 mg IM ASDIRECTED PRN PRN Reason: Hypoglycemia Sodium Chloride (Saline Flush) 10 ml FLUSH ASDIRECTED PRN PRN Reason: Keep Vein Open Last Admin: 02/11/20 18:13 Dose: 10 ml Documented by: [id number] Sodium Chloride (Saline Flush) 2.5 ml FLUSH ASDIRECTED PRN PRN Reason: Keep Vein Open Last Admin: 02/11/20 18:13 Dose: 2.5 ml Documented by: [id number] Labs: Laboratory Tests 02/11/20 02/11/20 02/11/20 Range/Units 19:07 19:07 20:07 WBC 7.08 (4.0-11.0) K/uL RBC 4.27 L (4.30-5.90) M/uL Hgb 12.2 (12.0-16.0) g/dL Hct 39.0 (36.0-46.0) % MCV 91.3 (80.0-98.0) fL MCH 28.6 (27.0-32.0) pg MCHC 31.3 (31.0-37.0) g/dL RDW Std Deviation 47.9 (28.0-62.0) fl RDW Coeff of Dyan 14 (11.0-15.0) % Plt Count 348 (150-400) K/uL MPV 11.80 (7.40-12.00) fL Neut % (Auto) 62.6 (48.0-80.0) % Lymph % (Auto) 27.0 (16.0-40.0) % [place] % (Auto) 8.1 (0.0-15.0) % Eos % (Auto) 1.7 (0.0-7.0) % Baso % (Auto) 0.6 (0.0-1.5) % Neut # (Auto) 4.4 (1.4-5.7) K/uL Lymph # (Auto) 1.9 (0.6-2.4) K/uL [place] # (Auto) 0.6 (0.0-0.8) K/uL Eos # (Auto) 0.1 (0.0-0.7) K/uL Baso # (Auto) 0.0 (0.0-0.1) K/uL Nucleated RBC % 0.0 /100WBC Nucleated RBCs # 0 K/uL Sodium 152 H (136-145) mmol/L Potassium 5.8 H (3.5-5.1) mmol/L Chloride 115 H (98-107) mmol/L Carbon Dioxide 16.3 L (21.0-32.0) mmol/L BUN 94 H (7.0-18.0) mg/dL Creatinine 3.2 H (0.6-1.0) mg/dL Est Cr Clr Drug Dosing 12.74 mL/min Estimated GFR (MDRD) 14.1 ml/min Glucose 99 (74-106) mg/dL POC Glucose 351 H (60-110) mg/dL Calcium 10.6 H (8.5-10.1) mg/dL Magnesium 2.5 H (1.8-2.4) mg/dL Total Bilirubin 0.5 (0.2-1.0) mg/dL AST 18 (15-37) IU/L ALT 22 (14-63) IU/L Alkaline Phosphatase 121 H (46-116) U/L Troponin I < 0.050 (0.000-0.056) ng/mL Total Protein 8.8 H (6.4-8.2) g/dL Albumin 3.7 (3.4-5.0) g/dL Globulin 5.1 H (2.6-4.0) g/dL Albumin/Globulin Ratio 0.7 L (0.9-1.6) Meds: Medications Generic Name Dose Route Start Last Admin Trade Name Freq PRN Reason Stop Dose Admin Dextrose/Water 50 ml 02/11/20 19:43 Dextrose 50% In Water IV ASDIRECTED PRN Hypoglycemia Glucagon 1 mg 02/11/20 19:43 Glucagen IM ASDIRECTED PRN Hypoglycemia Sodium Chloride 10 ml 02/11/20 17:41 02/11/20 18:13 Saline Flush FLUSH 10 ml ASDIRECTED PRN Administration Keep Vein Open Sodium Chloride 2.5 ml 02/11/20 17:41 02/11/20 18:13 Saline Flush FLUSH 2.5 ml ASDIRECTED PRN Administration Keep Vein Open Discontinued Medications Generic Name Dose Route Start Last Admin Trade Name Freq PRN Reason Stop Dose Admin Calcium Gluconate 1 gm 02/11/20 19:45 02/11/20 19:52 Calcium Gluconate IV 02/11/20 19:46 1 gm ONETIME ONE Administration Dextrose/Water 50 ml 02/11/20 19:44 02/11/20 19:53 Dextrose 50% In Water IVPUSH 02/11/20 19:45 50 ml ONETIME ONE Administration Haloperidol Lactate 5 mg 02/11/20 20:35 02/11/20 20:40 Haldol IM 02/11/20 20:36 5 mg ONETIME ONE Administration Sodium Chloride 1,000 mls @ 999 mls/hr 02/11/20 19:43 02/11/20 19:52 Normal Saline IV 02/11/20 20:43 999 mls/hr .Bolus ONE Administration Insulin Human Regular 10 unit 02/11/20 19:43 02/11/20 19:54 Novolin R IVPUSH 02/11/20 19:44 10 units ONETIME ONE Administration Protocol Lorazepam 1 mg 02/11/20 20:07 02/11/20 20:12 Ativan IVPUSH 02/11/20 20:08 1 mg ONETIME ONE Administration - Re-Assessments/Exams Free Text/Narrative Re-Assessment/Exam: 02/11/20 19:45 Labs remarkable for JULIUS with bump of creatinine from baseline 2-3.2. Patient is also hyponatremic and hyperkalemic. On reassessment of EKG patient does have peaked T waves. Calcium gluconate, insulin, dextrose ordered. IV fluid bolus ordered as well. We will follow up UA and admit patient. 02/11/20 20:36 Dr. Gould has accepted this patient for admission. Urinalysis is pending. 02/11/20 21:24 UA negative for UTI; no antibiotics have been given Departure - Departure Time of Disposition: 20:36 Condition: Fair Sepsis Event Note (ED) - Focused Exam Vital Signs: Vital Signs Temp Pulse Resp BP Pulse Ox 02/11/20 19:04 92 20 106/50 L 93 L 02/11/20 17:42 97.9 F 89 17 114/63 98 - My Orders Last 24 Hours: My Active Orders 02/11/20 19:29 Urinary Catheter Assessment [RC] ASDIRECTED 02/11/20 19:30 Urinary Catheter Insertion [Insert Urinary Catheter] [OM.PC] Q24H 02/11/20 19:43 Dextrose 50% in Water 50 ml IV ASDIRECTED PRN Glucagon,Human Recombinant [GlucaGen] 1 mg IM ASDIRECTED PRN - Assessment/Plan Last 24 Hours: My Active Orders 02/11/20 19:29 Urinary Catheter Assessment [RC] ASDIRECTED 02/11/20 19:30 Urinary Catheter Insertion [Insert Urinary Catheter] [OM.PC] Q24H 02/11/20 19:43 Dextrose 50% in Water 50 ml IV ASDIRECTED PRN Glucagon,Human Recombinant [GlucaGen] 1 mg IM ASDIRECTED PRN
--- NOTE | 2020-02-11 18:44 | CR ---
Indication: Hypoxia. Technique: AP portable view of the chest. Comparison: January 29, 2020. Findings: The heart is normal in size. Coarse interstitial opacities are identified bilaterally. No pleural effusion or pneumothorax is identified. Impression: Coarse interstitial opacities bilaterally, new. Dictated by Ayesha Bautista MD @ Feb 11 2020 6:39PM Signed by Dr. Ayesha Bautista @ Feb 11 2020 6:43PM
--- NOTE | 2020-02-11 19:31 | CT ---
INDICATION: AMS TECHNIQUE: CT head without contrast. COMPARISON: 11/25/2016 FINDINGS: There is age-related cortical atrophy with mild proportionate ventriculomegaly, mildly increased. There is no mass effect or midline shift. Tonsillar ectopia is again seen, measuring up to 9 mm on the left and 7 mm on the right, apparently mildly decreased, which may be related to mild interval progression of atrophy. Slight periventricular hypodensity is nonspecific and could represent minor chronic small vessel ischemic changes. There is no loss of campbell-white differentiation. There is no evidence of an acute intracranial hemorrhage. No acute calvarial fracture is seen. There is a small mucosal retention cyst or polyp in the posterior right ethmoid sinus and trace focal mucosal thickening in the left sphenoid sinus. The mastoid air cells are clear. The visualized orbits are within normal limits. IMPRESSION: No evidence of an acute intracranial hemorrhage, mass effect or loss of campbell-white differentiation. Age-related atrophy. 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 Please note that all CT scans at this facility use dose modulation, iterative reconstruction, and/or weight-based dosing when appropriate to reduce radiation dose to as low as reasonably achievable. Dictated by Keyur Guevara MD @ Feb 11 2020 7:17PM Signed by Dr. Keyur Guevara @ Feb 11 2020 7:29PM
[2020-02-11 19:39] LABS: BLOOD UREA NITROGEN,BUN 94 mg/dL (7.0-18.0); CARBON DIOXIDE,CO2 16.3 mmol/L (21.0-32.0); CHLORIDE,CL 115 mmol/L (98-107); GLUCOSE RANDOM 99 mg/dL (74-106); POTASSIUM,K 5.8 mmol/L (3.5-5.1); SODIUM,NA 152 mmol/L (136-145)
[2020-02-11] MEDS ORDERED: Glucagon,Human Recombinant 1 MG Vial IM PRN (19:43)
[2020-02-11] MEDS ORDERED: Insulin Regular, Human 100 Units/ML 10 ML Vial IVPUSH ONE (19:43)
[2020-02-11] MEDS ORDERED: Sodium Chloride 0.9% 1,000 ML IV ONE (19:43)
[2020-02-11] MEDS ORDERED: 50% Dextrose in Water 50 ML Syringe IV PRN (19:43)
[2020-02-11] MEDS ORDERED: 50% Dextrose in Water 50 ML Syringe IVPUSH ONE (19:44)
[2020-02-11] MEDS ORDERED: Calcium Gluconate 10% 1 GM/10 ML SDV IV ONE (19:45)
[2020-02-11] MEDS ORDERED: LORazepam 2 MG/ML SDV IVPUSH ONE (20:07)
[2020-02-11] MEDS ORDERED: Haloperidol Lactate 5 MG/ML SDV IM ONE (20:35)
--- NOTE | 2020-02-12 00:39 | PCM.HP.2 ---
H&P History of Present Illness - General Date of Service: 02/12/20 Admit Problem/Dx: Admission Diagnosis/Problem Admission Diagnosis/Problem Acute kidney injury - History of Present Illness Initial Comments - Free Text/Narative: 74 yo female with pmh of dementia and COVID-19 infection last month Jan 20. Since getting COVID she has not completely recovered. Past five days she has been bed rylie and has not eaten. She does have a cough. No fevers or pain. - Related Data Allergies/Adverse Reactions: Allergies Allergy/AdvReac Type Severity Reaction Status Date / Time Dairy Products Allergy Diarrhea Verified 02/11/20 21:54 meperidine HCl [From Demerol] Allergy Hallucinati Verified 02/11/20 21:54 ons shellfish derived Allergy Cannot Verified 02/11/20 21:54 Remember IVP Dye Allergy Hives Uncoded 02/11/20 21:54 Home Medications: Home Meds Aspirin [Halfprin] 1 tab PO DAILY 09/09/19 [History] Calcium Carbonate/Vitamin D3 [Calcium 600 + Vit D 400 Softgl] 1 tab PO DAILY 09/09/19 [History] Diclofenac Sodium [Voltaren] 1 dose TOP ASDIRECTED PRN 09/09/19 [History] Furosemide [Lasix] 20 mg PO DAILY 09/09/19 [History] Gabapentin [Neurontin] 1 cap PO BEDTIME 09/09/19 [History] Memantine [Namenda] 5 mg PO DAILY 09/09/19 [History] Mirtazapine 1 tab PO BEDTIME 09/09/19 [History] Budesonide [Pulmicort] 0.5 mg IH BID 02/11/20 [History] Donepezil HCl 20 mg PO BEDTIME 02/11/20 [History] Dorzolamide/Timolol/Pf [Dorzolamide-Timolol 2%-0.5%] 1 drop EYEBOTH BID 02/11/20 [History] Doxycycline [Vibramycin] 1 cap PO BID 02/11/20 [History] Fluconazole [Diflucan] 1 tab PO DAILY 02/11/20 [History] Nystatin 1 applic TOP TID 02/11/20 [History] levalbuterol HCL [Levalbuterol HCl] 1 ampule INH Q6HR PRN 02/11/20 [History] ramipriL [Ramipril] 2.5 mg PO DAILY 02/11/20 [History] Past Medical History HEENT History: Reports: Glaucoma Cardiovascular History: Reports: Hypertension Respiratory History: Reports: None Other Respiratory History: Reports 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 Dementia Psychiatric History: Reports: Anxiety, Dementia, Depression Other Psychiatric History: hx: situational depression Endocrine/Metabolic History: Reports: Diabetes, Type II Hematologic History: Reports: Blood Transfusion(s) Immunologic History: Reports: None Oncologic (Cancer) History: Reports: None Dermatologic History: Reports: None - Infectious Disease History Infectious Disease History: Reports: Chicken Pox, Measles, Mumps - Past Surgical History HEENT Surgical History: Reports: None Cardiovascular Surgical History: Reports: None Respiratory Surgical History: Reports: None GI Surgical History: Reports: None Other Female Surgeries/Procedures: Return to surgery post hysterectomy due to "clot formation" Other Musculoskeletal Surgeries/Procedures:: Left Rotator Cuff Repair Social & Family History - Family History Family Medical History: No Pertinent Family History - Tobacco Use Tobacco Use Status *Q: Former Tobacco User Used Tobacco, but Quit: Yes Month/Year Tobacco Last Used: 1999 Second Hand Smoke Exposure: No - Caffeine Use Caffeine Use: Reports: Tea - Recreational Drug Use Recreational Drug Use: No H&P Review of Systems - Review of Systems: Review Of Systems: Unable To Obtain Reason Not Obtained: dementia Exam - Exam Exam: See Below - Vital Signs Vital Signs: Last Vital Signs Temp 36.0 C L 02/11/20 22:10 Pulse 79 02/11/20 22:10 Resp 16 02/11/20 22:10 BP 110/56 L 02/11/20 22:10 Pulse Ox 94 L 02/11/20 22:10 Weight: 53.977 kg - Exam General: Lethargic HEENT: Posterior Pharynx Clear Neck: Supple Lungs: Clear to Auscultation, Normal Respiratory Effort Cardiovascular: Regular Rate, Regular Rhythm GI/Abdominal Exam: Soft, Non-Tender, No Distention Extremities: Non-Tender, No Pedal Edema Skin: Warm, Dry, Intact - Patient Data Lab Results Last 24 hrs: Laboratory Results - last 24 hr 02/11/20 02/11/20 02/11/20 Range/Units 19:07 19:07 20:07 WBC 7.08 (4.0-11.0) K/uL RBC 4.27 L (4.30-5.90) M/uL Hgb 12.2 (12.0-16.0) g/dL Hct 39.0 (36.0-46.0) % MCV 91.3 (80.0-98.0) fL MCH 28.6 (27.0-32.0) pg MCHC 31.3 (31.0-37.0) g/dL RDW Std Deviation 47.9 (28.0-62.0) fl RDW Coeff of Dyan 14 (11.0-15.0) % Plt Count 348 (150-400) K/uL MPV 11.80 (7.40-12.00) fL Neut % (Auto) 62.6 (48.0-80.0) % Lymph % (Auto) 27.0 (16.0-40.0) % [place] % (Auto) 8.1 (0.0-15.0) % Eos % (Auto) 1.7 (0.0-7.0) % Baso % (Auto) 0.6 (0.0-1.5) % Neut # (Auto) 4.4 (1.4-5.7) K/uL Lymph # (Auto) 1.9 (0.6-2.4) K/uL [place] # (Auto) 0.6 (0.0-0.8) K/uL Eos # (Auto) 0.1 (0.0-0.7) K/uL Baso # (Auto) 0.0 (0.0-0.1) K/uL Nucleated RBC % 0.0 /100WBC Nucleated RBCs # 0 K/uL Sodium 152 H (136-145) mmol/L Potassium 5.8 H (3.5-5.1) mmol/L Chloride 115 H (98-107) mmol/L Carbon Dioxide 16.3 L (21.0-32.0) mmol/L BUN 94 H (7.0-18.0) mg/dL Creatinine 3.2 H (0.6-1.0) mg/dL Est Cr Clr Drug Dosing 12.74 mL/min Estimated GFR (MDRD) 14.1 ml/min Glucose 99 (74-106) mg/dL POC Glucose 351 H (60-110) mg/dL Calcium 10.6 H (8.5-10.1) mg/dL Magnesium 2.5 H (1.8-2.4) mg/dL Total Bilirubin 0.5 (0.2-1.0) mg/dL AST 18 (15-37) IU/L ALT 22 (14-63) IU/L Alkaline Phosphatase 121 H (46-116) U/L Troponin I < 0.050 (0.000-0.056) ng/mL Total Protein 8.8 H (6.4-8.2) g/dL Albumin 3.7 (3.4-5.0) g/dL Globulin 5.1 H (2.6-4.0) g/dL Albumin/Globulin Ratio 0.7 L (0.9-1.6) Urine Color Urine Appearance Urine pH (5.0-8.0) Ur Specific [place] (1.001-1.035) Urine Protein (NEGATIVE) mg/dL Urine Glucose (UA) (NEGATIVE) mg/dL Urine Ketones (NEGATIVE) mg/dL Urine Occult Blood (NEGATIVE) Urine Nitrite (NEGATIVE) Urine Bilirubin (NEGATIVE) Urine Urobilinogen (<2.0) EU/dL Ur Leukocyte Esterase (NEGATIVE) U Hyaline Cast (Auto) (0-2/LPF) Urine RBC (0-2/HPF) Urine WBC (0-5/HPF) Ur Epithelial Cells (NONE-FEW) Amorphous Sediment (NEGATIVE) Urine Bacteria (NEGATIVE) Urine Mucus (NONE-MOD) 02/11/20 Range/Units 21:15 WBC (4.0-11.0) K/uL RBC (4.30-5.90) M/uL Hgb (12.0-16.0) g/dL Hct (36.0-46.0) % MCV (80.0-98.0) fL MCH (27.0-32.0) pg MCHC (31.0-37.0) g/dL RDW Std Deviation (28.0-62.0) fl RDW Coeff of Dyan (11.0-15.0) % Plt Count (150-400) K/uL MPV (7.40-12.00) fL Neut % (Auto) (48.0-80.0) % Lymph % (Auto) (16.0-40.0) % [place] % (Auto) (0.0-15.0) % Eos % (Auto) (0.0-7.0) % Baso % (Auto) (0.0-1.5) % Neut # (Auto) (1.4-5.7) K/uL Lymph # (Auto) (0.6-2.4) K/uL [place] # (Auto) (0.0-0.8) K/uL Eos # (Auto) (0.0-0.7) K/uL Baso # (Auto) (0.0-0.1) K/uL Nucleated RBC % /100WBC Nucleated RBCs # K/uL Sodium (136-145) mmol/L Potassium (3.5-5.1) mmol/L Chloride (98-107) mmol/L Carbon Dioxide (21.0-32.0) mmol/L BUN (7.0-18.0) mg/dL Creatinine (0.6-1.0) mg/dL Est Cr Clr Drug Dosing mL/min Estimated GFR (MDRD) ml/min Glucose (74-106) mg/dL POC Glucose (60-110) mg/dL Calcium (8.5-10.1) mg/dL Magnesium (1.8-2.4) mg/dL Total Bilirubin (0.2-1.0) mg/dL AST (15-37) IU/L ALT (14-63) IU/L Alkaline Phosphatase (46-116) U/L Troponin I (0.000-0.056) ng/mL Total Protein (6.4-8.2) g/dL Albumin (3.4-5.0) g/dL Globulin (2.6-4.0) g/dL Albumin/Globulin Ratio (0.9-1.6) Urine Color YELLOW Urine Appearance SLT CLOUDY Urine pH 5.5 (5.0-8.0) Ur Specific [place] >= 1.030 (1.001-1.035) Urine Protein NEGATIVE (NEGATIVE) mg/dL Urine Glucose (UA) NEGATIVE (NEGATIVE) mg/dL Urine Ketones NEGATIVE (NEGATIVE) mg/dL Urine Occult Blood NEGATIVE (NEGATIVE) Urine Nitrite NEGATIVE (NEGATIVE) Urine Bilirubin SMALL H (NEGATIVE) Urine Urobilinogen 0.2 (<2.0) EU/dL Ur Leukocyte Esterase NEGATIVE (NEGATIVE) U Hyaline Cast (Auto) 0-1 (0-2/LPF) Urine RBC 0-2 (0-2/HPF) Urine WBC 1-3 (0-5/HPF) Ur Epithelial Cells FEW (NONE-FEW) Amorphous Sediment MODERATE (NEGATIVE) Urine Bacteria 2+ H (NEGATIVE) Urine Mucus LIGHT (NONE-MOD) Result Diagrams: 02/11/20 19:07 02/11/20 19:07 Sepsis Event Note - Evaluation Sepsis Screening Result: No Definite Risk - Focused Exam Vital Signs: Vital Signs Temp Pulse Resp BP Pulse Ox 02/11/20 22:10 36.0 C L 79 16 110/56 L 94 L 02/11/20 21:18 36.3 C 83 16 122/62 93 L 02/11/20 20:34 78 14 111/64 93 L 02/11/20 19:32 80 14 108/50 L 94 L 02/11/20 19:18 84 16 106/50 L 94 L 02/11/20 19:04 92 20 106/50 L 93 L 02/11/20 17:42 36.6 C 89 17 114/63 98 Problem List Initiated/Reviewed/Updated: Yes Orders Last 24hrs: Active Orders 24 hr Category Date Time Status Patient Status [ADT] Routine ADT 02/11/20 20:37 Active Antiembolic Devices [RC] PER UNIT ROUTINE Care 02/12/20 00:32 Ordered Blood Glucose Check, Bedside [RC] TIDMEALS Care 02/12/20 00:31 Ordered Influenza Vaccine Charge [RC] .DISCHARGE Care 02/11/20 21:55 Active Oxygen Therapy [RC] PRN Care 02/12/20 00:31 Ordered Urinary Catheter Assessment [RC] ASDIRECTED Care 02/11/20 19:29 Active Urinary Catheter Insertion [Insert Urinary Catheter] [ Care 02/11/20 19:30 Ordered OM.PC] Q24H VTE/DVT Education [RC] PER UNIT ROUTINE Care 02/12/20 00:31 Ordered Vital Signs [RC] Q4H Care 02/12/20 00:31 Ordered Regular Diet [DIET] Diet 02/12/20 Breakfast Ordered BASIC METABOLIC PANEL,BMP [CHEM] AM Lab 02/12/20 05:11 Ordered CBC WITH AUTO DIFF [HEME] AM Lab 02/12/20 05:11 Ordered COVID-19/FLU A+B [MOLEC] Stat Lab 02/11/20 18:55 Ordered Dextrose 50% in Water Med 02/11/20 19:43 Active 50 ml IV ASDIRECTED PRN Flu Vacc [id number])/Mf59c/Pf [Fluad Quad Med 02/12/20 09:00 Once Syringe] 60 mcg IM .ONCE ONE Glucagon,Human Recombinant [GlucaGen] Med 02/11/20 19:43 Active 1 mg IM ASDIRECTED PRN Heparin Sodium Med 02/12/20 00:45 Ordered 5,000 units SUBCUT Q12H Pharmacy to Dose - InFluenza V [Pharmacy to Dose - Med 02/12/20 08:00 Once InFluenza Vaccine] 1 each IM ONETIME ONE Sodium Chloride 0.9% @ 125 MLS/HR (1000ml) Med 02/12/20 00:45 Ordered Sodium Chloride 0.9% [Normal Saline] 1,000 ml IV ASDIRECTED Sodium Chloride 0.9% [Saline Flush] Med 02/11/20 17:41 Active 10 ml FLUSH ASDIRECTED PRN Sodium Chloride 0.9% [Saline Flush] Med 02/11/20 17:41 Active 2.5 ml FLUSH ASDIRECTED PRN Saline Lock Insert [OM.PC] Stat Oth 02/11/20 17:41 Ordered Sequential Compression Device [OM.PC] Per Unit Routine Oth 02/12/20 00:31 Ordered Resuscitation Status Routine Resus Stat 02/12/20 00:31 Ordered Medication Orders Dextrose/Water (Dextrose 50% In Water) 50 ml IV ASDIRECTED PRN PRN Reason: Hypoglycemia Glucagon (Glucagen) 1 mg IM ASDIRECTED PRN PRN Reason: Hypoglycemia Heparin Sodium (Porcine) (Heparin Sodium) 5,000 units SUBCUT Q12H NAEL Sodium Chloride (Normal Saline) 1,000 mls @ 125 mls/hr IV ASDIRECTED NAEL Influenza Virus Vaccine (Pharmacy To Dose - Influenza Vaccine) 1 each IM ONE TIME ONE Stop: 02/12/20 08:01 Influenza Virus Vaccine (Fluad Quad [id number] Syringe) 60 mcg IM .ONCE ONE Stop: 02/12/20 09:01 Sodium Chloride (Saline Flush) 10 ml FLUSH ASDIRECTED PRN PRN Reason: Keep Vein Open Last Admin: 02/11/20 18:13 Dose: 10 ml Documented by: [id number] Sodium Chloride (Saline Flush) 2.5 ml FLUSH ASDIRECTED PRN PRN Reason: Keep Vein Open Last Admin: 02/11/20 18:13 Dose: 2.5 ml Documented by: [id number] Assessment/Plan Comment:: 74 yo female admitted for general debility post covid with generalized weakness, dehydration, acute on chronic kidney injury and possible pneumonia. We will treat with IV fluids and Levaquin. Patient's family reports goals of care are primally palliative and will prioritize comfort care.
[2020-02-12] MEDS: Sodium Chloride 0.9% 1,000 ML IV SCH ×2 (00:51→09:21)
[2020-02-12] MEDS: Heparin Sodium 5,000 Units/ML Vial SUBCUT SCH ×2 (00:52→13:44)
[2020-02-12] MEDS ORDERED: Levofloxacin/Dextrose 5%-Water 750 MG in Premix Bag 1 BAG IV ONE (01:00)
[2020-02-12 07:06] LABS: CARBON DIOXIDE,CO2 16.6 mmol/L (21.0-32.0); POTASSIUM,K 5.9 mmol/L (3.5-5.1)
[2020-02-12] MEDS ORDERED: FLU VACC QS2020(65UP)/MF59C/PF 60 MCG/0.5 ML Syringe IM ONE (09:00)
--- NOTE | 2020-02-12 11:19 | PCM.PN ---
- General Info Date of Service: 02/12/20 Admission Dx/Problem (Free Text): Admission Diagnosis/Problem Subjective Update: Bernie tripp is our alisha 74-year-old female with a significant past medical history of dementia, she was previously tested positive for Covid January 21, 2020. Family feels that since she has not been doing well, has been more bedbound, is not eating and appears to be more weak and dehydrated. There were no overnight events, patient slept well, she stated that she feels good this morning, however was only alert and oriented x1. Functional Status: Reports: New Symptoms - Review of Systems General: Reports: No Symptoms HEENT: Reports: No Symptoms Pulmonary: Reports: No Symptoms Cardiovascular: Reports: No Symptoms Gastrointestinal: Reports: No Symptoms Genitourinary: Reports: No Symptoms Musculoskeletal: Reports: No Symptoms Skin: Reports: No Symptoms Neurological: Reports: No Symptoms Psychiatric: Reports: No Symptoms - Patient Data Vitals - Most Recent: Last Vital Signs Temp 97.6 F 02/12/20 08:24 Pulse 71 02/12/20 08:24 Resp 16 02/12/20 08:24 BP 141/72 H 02/12/20 08:24 Pulse Ox 95 02/12/20 08:24 Weight - Most Recent: 119 lb I&O - Last 24 Hours: Intake & Output 02/11/20 02/12/20 02/12/20 22:59 06:59 14:59 Intake Total 723 Balance 723 Lab Results Last 24 Hours: Laboratory Results - last 24 hr 02/11/20 02/11/20 02/11/20 Range/Units 19:07 19:07 20:07 WBC 7.08 (4.0-11.0) K/uL RBC 4.27 L (4.30-5.90) M/uL Hgb 12.2 (12.0-16.0) g/dL Hct 39.0 (36.0-46.0) % MCV 91.3 (80.0-98.0) fL MCH 28.6 (27.0-32.0) pg MCHC 31.3 (31.0-37.0) g/dL RDW Std Deviation 47.9 (28.0-62.0) fl RDW Coeff of Dyan 14 (11.0-15.0) % Plt Count 348 (150-400) K/uL MPV 11.80 (7.40-12.00) fL Neut % (Auto) 62.6 (48.0-80.0) % Lymph % (Auto) 27.0 (16.0-40.0) % [place] % (Auto) 8.1 (0.0-15.0) % Eos % (Auto) 1.7 (0.0-7.0) % Baso % (Auto) 0.6 (0.0-1.5) % Neut # (Auto) 4.4 (1.4-5.7) K/uL Lymph # (Auto) 1.9 (0.6-2.4) K/uL [place] # (Auto) 0.6 (0.0-0.8) K/uL Eos # (Auto) 0.1 (0.0-0.7) K/uL Baso # (Auto) 0.0 (0.0-0.1) K/uL Nucleated RBC % 0.0 /100WBC Nucleated RBCs # 0 K/uL Sodium 152 H (136-145) mmol/L Potassium 5.8 H (3.5-5.1) mmol/L Chloride 115 H (98-107) mmol/L Carbon Dioxide 16.3 L (21.0-32.0) mmol/L BUN 94 H (7.0-18.0) mg/dL Creatinine 3.2 H (0.6-1.0) mg/dL Est Cr Clr Drug Dosing 12.74 mL/min Estimated GFR (MDRD) 14.1 ml/min Glucose 99 (74-106) mg/dL POC Glucose 351 H (60-110) mg/dL Calcium 10.6 H (8.5-10.1) mg/dL Magnesium 2.5 H (1.8-2.4) mg/dL Total Bilirubin 0.5 (0.2-1.0) mg/dL AST 18 (15-37) IU/L ALT 22 (14-63) IU/L Alkaline Phosphatase 121 H (46-116) U/L Troponin I < 0.050 (0.000-0.056) ng/mL Total Protein 8.8 H (6.4-8.2) g/dL Albumin 3.7 (3.4-5.0) g/dL Globulin 5.1 H (2.6-4.0) g/dL Albumin/Globulin Ratio 0.7 L (0.9-1.6) Urine Color Urine Appearance Urine pH (5.0-8.0) Ur Specific [place] (1.001-1.035) Urine Protein (NEGATIVE) mg/dL Urine Glucose (UA) (NEGATIVE) mg/dL Urine Ketones (NEGATIVE) mg/dL Urine Occult Blood (NEGATIVE) Urine Nitrite (NEGATIVE) Urine Bilirubin (NEGATIVE) Urine Urobilinogen (<2.0) EU/dL Ur Leukocyte Esterase (NEGATIVE) U Hyaline Cast (Auto) (0-2/LPF) Urine RBC (0-2/HPF) Urine WBC (0-5/HPF) Ur Epithelial Cells (NONE-FEW) Amorphous Sediment (NEGATIVE) Urine Bacteria (NEGATIVE) Urine Mucus (NONE-MOD) 02/11/20 02/12/20 02/12/20 Range/Units 21:15 06:10 06:10 WBC 6.07 (4.0-11.0) K/uL RBC 3.81 L (4.30-5.90) M/uL Hgb 11.1 L (12.0-16.0) g/dL Hct 35.5 L (36.0-46.0) % MCV 93.2 (80.0-98.0) fL MCH 29.1 (27.0-32.0) pg MCHC 31.3 (31.0-37.0) g/dL RDW Std Deviation 49.4 (28.0-62.0) fl RDW Coeff of Dyan 15 (11.0-15.0) % Plt Count 293 (150-400) K/uL MPV 11.70 (7.40-12.00) fL Neut % (Auto) 48.2 (48.0-80.0) % Lymph % (Auto) 36.6 (16.0-40.0) % [place] % (Auto) 10.4 (0.0-15.0) % Eos % (Auto) 4.0 (0.0-7.0) % Baso % (Auto) 0.8 (0.0-1.5) % Neut # (Auto) 2.9 (1.4-5.7) K/uL Lymph # (Auto) 2.2 (0.6-2.4) K/uL [place] # (Auto) 0.6 (0.0-0.8) K/uL Eos # (Auto) 0.2 (0.0-0.7) K/uL Baso # (Auto) 0.1 (0.0-0.1) K/uL Nucleated RBC % 0.0 /100WBC Nucleated RBCs # 0 K/uL Sodium 152 H (136-145) mmol/L Potassium 5.9 H (3.5-5.1) mmol/L Chloride 120 H (98-107) mmol/L Carbon Dioxide 16.6 L (21.0-32.0) mmol/L BUN 85 H (7.0-18.0) mg/dL Creatinine 2.9 H (0.6-1.0) mg/dL Est Cr Clr Drug Dosing 14.06 mL/min Estimated GFR (MDRD) 15.8 ml/min Glucose 83 (74-106) mg/dL POC Glucose (60-110) mg/dL Calcium 10.2 H (8.5-10.1) mg/dL Magnesium (1.8-2.4) mg/dL Total Bilirubin (0.2-1.0) mg/dL AST (15-37) IU/L ALT (14-63) IU/L Alkaline Phosphatase (46-116) U/L Troponin I (0.000-0.056) ng/mL Total Protein (6.4-8.2) g/dL Albumin (3.4-5.0) g/dL Globulin (2.6-4.0) g/dL Albumin/Globulin Ratio (0.9-1.6) Urine Color YELLOW Urine Appearance SLT CLOUDY Urine pH 5.5 (5.0-8.0) Ur Specific [place] >= 1.030 (1.001-1.035) Urine Protein NEGATIVE (NEGATIVE) mg/dL Urine Glucose (UA) NEGATIVE (NEGATIVE) mg/dL Urine Ketones NEGATIVE (NEGATIVE) mg/dL Urine Occult Blood NEGATIVE (NEGATIVE) Urine Nitrite NEGATIVE (NEGATIVE) Urine Bilirubin SMALL H (NEGATIVE) Urine Urobilinogen 0.2 (<2.0) EU/dL Ur Leukocyte Esterase NEGATIVE (NEGATIVE) U Hyaline Cast (Auto) 0-1 (0-2/LPF) Urine RBC 0-2 (0-2/HPF) Urine WBC 1-3 (0-5/HPF) Ur Epithelial Cells FEW (NONE-FEW) Amorphous Sediment MODERATE (NEGATIVE) Urine Bacteria 2+ H (NEGATIVE) Urine Mucus LIGHT (NONE-MOD) 02/12/20 Range/Units 06:54 WBC (4.0-11.0) K/uL RBC (4.30-5.90) M/uL Hgb (12.0-16.0) g/dL Hct (36.0-46.0) % MCV (80.0-98.0) fL MCH (27.0-32.0) pg MCHC (31.0-37.0) g/dL RDW Std Deviation (28.0-62.0) fl RDW Coeff of Dyan (11.0-15.0) % Plt Count (150-400) K/uL MPV (7.40-12.00) fL Neut % (Auto) (48.0-80.0) % Lymph % (Auto) (16.0-40.0) % [place] % (Auto) (0.0-15.0) % Eos % (Auto) (0.0-7.0) % Baso % (Auto) (0.0-1.5) % Neut # (Auto) (1.4-5.7) K/uL Lymph # (Auto) (0.6-2.4) K/uL [place] # (Auto) (0.0-0.8) K/uL Eos # (Auto) (0.0-0.7) K/uL Baso # (Auto) (0.0-0.1) K/uL Nucleated RBC % /100WBC Nucleated RBCs # K/uL Sodium (136-145) mmol/L Potassium (3.5-5.1) mmol/L Chloride (98-107) mmol/L Carbon Dioxide (21.0-32.0) mmol/L BUN (7.0-18.0) mg/dL Creatinine (0.6-1.0) mg/dL Est Cr Clr Drug Dosing mL/min Estimated GFR (MDRD) ml/min Glucose (74-106) mg/dL POC Glucose 73 (60-110) mg/dL Calcium (8.5-10.1) mg/dL Magnesium (1.8-2.4) mg/dL Total Bilirubin (0.2-1.0) mg/dL AST (15-37) IU/L ALT (14-63) IU/L Alkaline Phosphatase (46-116) U/L Troponin I (0.000-0.056) ng/mL Total Protein (6.4-8.2) g/dL Albumin (3.4-5.0) g/dL Globulin (2.6-4.0) g/dL Albumin/Globulin Ratio (0.9-1.6) Urine Color Urine Appearance Urine pH (5.0-8.0) Ur Specific [place] (1.001-1.035) Urine Protein (NEGATIVE) mg/dL Urine Glucose (UA) (NEGATIVE) mg/dL Urine Ketones (NEGATIVE) mg/dL Urine Occult Blood (NEGATIVE) Urine Nitrite (NEGATIVE) Urine Bilirubin (NEGATIVE) Urine Urobilinogen (<2.0) EU/dL Ur Leukocyte Esterase (NEGATIVE) U Hyaline Cast (Auto) (0-2/LPF) Urine RBC (0-2/HPF) Urine WBC (0-5/HPF) Ur Epithelial Cells (NONE-FEW) Amorphous Sediment (NEGATIVE) Urine Bacteria (NEGATIVE) Urine Mucus (NONE-MOD) Med Orders - Current: Current Medications Dextrose/Water (Dextrose 50% In Water) 50 ml IV ASDIRECTED PRN PRN Reason: Hypoglycemia Glucagon (Glucagen) 1 mg IM ASDIRECTED PRN PRN Reason: Hypoglycemia Heparin Sodium (Porcine) (Heparin Sodium) 5,000 units SUBCUT Q12H [facility] Last Admin: 02/12/20 00:52 Dose: 5,000 units Documented by: Levofloxacin/Dextrose 500 mg/ (Premix) 100 mls @ 100 mls/hr IV Q48H NAEL Dextrose/Sodium Chloride (Dextrose 5%-1/2 Ns) 1,000 mls @ 125 mls/hr IV Q8H NAEL Sodium Chloride (Saline Flush) 10 ml FLUSH ASDIRECTED PRN PRN Reason: Keep Vein Open Last Admin: 02/11/20 18:13 Dose: 10 ml Documented by: Sodium Chloride (Saline Flush) 2.5 ml FLUSH ASDIRECTED PRN PRN Reason: Keep Vein Open Last Admin: 02/11/20 18:13 Dose: 2.5 ml Documented by: Discontinued Medications Calcium Gluconate (Calcium Gluconate) 1 gm IV ONETIME ONE Stop: 02/11/20 19:46 Last Admin: 02/11/20 19:52 Dose: 1 gm Documented by: Dextrose/Water (Dextrose 50% In Water) 50 ml IVPUSH ONETIME ONE Stop: 02/11/20 19:45 Last Admin: 02/11/20 19:53 Dose: 50 ml Documented by: Haloperidol Lactate (Haldol) 5 mg IM ONETIME ONE Stop: 02/11/20 20:36 Last Admin: 02/11/20 20:40 Dose: 5 mg Documented by: Sodium Chloride (Normal Saline) 1,000 mls @ 999 mls/hr IV .Bolus ONE Stop: 02/11/20 20:43 Last Admin: 02/11/20 19:52 Dose: 999 mls/hr Documented by: Sodium Chloride (Normal Saline) 1,000 mls @ 125 mls/hr IV ASDIRECTED NAEL Last Admin: 02/12/20 09:21 Dose: 125 mls/hr Documented by: Levofloxacin/Dextrose 750 mg/ (Premix) 150 mls @ 100 mls/hr IV ONETIME ONE Stop: 02/12/20 02:29 Last Admin: 02/12/20 00:51 Dose: 100 mls/hr Documented by: Influenza Virus Vaccine (Pharmacy To Dose - Influenza Vaccine) 1 each IM ONETIME ONE Stop: 02/12/20 08:01 Influenza Virus Vaccine (Fluad Quad [id number] Syringe) 60 mcg IM .ONCE ONE Stop: 02/12/20 09:01 Insulin Human Regular (Novolin R) 10 unit IVPUSH ONETIME ONE; Protocol Stop: 02/11/20 19:44 Last Admin: 02/11/20 19:54 Dose: 10 units Documented by: Lorazepam (Ativan) 1 mg IVPUSH ONETIME ONE Stop: 02/11/20 20:08 Last Admin: 02/11/20 20:12 Dose: 1 mg Documented by: - Exam Quality Assessment: DVT Prophylaxis General: Alert, Cooperative, No Acute Distress. No: Oriented HEENT: Pupils Equal, Pupils Reactive, Mucous Membr. Moist/[place] Neck: Supple, Trachea Midline, No JVD. No: Thyromegaly Lungs: Clear to Auscultation, Normal Respiratory Effort Cardiovascular: Regular Rate, Regular Rhythm, No Murmurs GI/Abdominal Exam: Normal Bowel Sounds, Soft, Non-Tender, No Organomegaly, No Distention, No Mass Extremities: Normal Inspection, Normal Range of Motion, Non-Tender, No Pedal Edema, Normal Capillary Refill Peripheral Pulses: 2+: Radial (L), Radial (R), Posterior Tibial (L), Posterior Tibial (R) Skin: Warm, Dry, Intact Wound/Incisions: Healing Well Neurological: No New Focal Deficit Psy/Mental Status: Alert, Normal Affect, Normal Mood Sepsis Event Note - Evaluation Sepsis Screening Result: No Definite Risk - Focused Exam Vital Signs: Vital Signs Temp Pulse Resp BP Pulse Ox 02/12/20 08:24 97.6 F 71 16 141/72 H 95 02/12/20 05:35 96.4 F L 78 15 120/60 93 L 02/12/20 01:03 96.5 F L 70 16 106/54 L 93 L - Problem List & Annotations (1) JULIUS (acute kidney injury) SNOMED Code(s): 81542029, 73818942 Code(s): N17.9 - ACUTE KIDNEY FAILURE, UNSPECIFIED Status: Acute Current Visit: Yes (2) Dehydration SNOMED Code(s): 14811553 Code(s): E86.0 - DEHYDRATION Status: Acute Current Visit: Yes (3) COVID-19 SNOMED Code(s): 524076302 Code(s): U07.1 - COVID-19 Status: Acute Current Visit: No (4) Dementia SNOMED Code(s): 40492560 Code(s): F03.90 - UNSPECIFIED DEMENTIA WITHOUT BEHAVIORAL DISTURBANCE Status: Acute Current Visit: No (5) Hyperkalemia SNOMED Code(s): 03251500 Code(s): E87.5 - HYPERKALEMIA Status: Acute Current Visit: No - Problem List Review Problem List Initiated/Reviewed/Updated: Yes - Plan Plan:: Patient is a 74 y/o female admitted for general debility post covid with generalized weakness, dehydration, acute on chronic kidney injury and possible pneumonia. 1.Post Covid pneumonia: -Chest x-ray demonstrated new coarse interstitial opacities bilaterally We will treat with Levaquin renally dosed due to JULIUS. 2. Hyperkalemia: Most recent potassium 5.9 We will provide patient with D5 half-normal saline at a rate of 125, to help with hydration, and hopefully recruit insulin to help move potassium back into the cells. Continue to monitor on telemetry Follow-up potassium level at 15:00 3. JULIUS: BUN 85, creatinine 2.9; continue with hydration as mentioned above Avoid nephrotoxic agents Monitor CMP with a.m. labs 4. Dehydration causing electrolyte abnormalities: Hypernatremia 152, hyperchloremia 120, hypercalcemia 10.2 Provide maintenance fluids and hydration Follow CMP daily Continue to monitor via telemetry Disposition: 2 to 3 days, discussed with family possible future hospice ar susyments
[2020-02-12] MEDS: Dextrose 5%-0.45% NaCl 1,000 ML IV SCH ×3 (11:26→19:37)
[2020-02-12] MEDS ORDERED: Fluconazole/Normal Saline 200 MG in Premix Bag 1 BAG IV ONE (12:00)
[2020-02-12 16:18] LABS: POTASSIUM,K 4.9 mmol/L (3.5-5.1)
[2020-02-12] MEDS ORDERED: Acetaminophen 325 MG Tab PO PRN (21:54)
[2020-02-12] MEDS ORDERED: LORazepam 2 MG/ML SDV IVPUSH ONE (21:55)
[2020-02-13] MEDS: Heparin Sodium 5,000 Units/ML Vial SUBCUT SCH (01:30)
[2020-02-13] MEDS: Dextrose 5%-0.45% NaCl 1,000 ML IV SCH ×3 (02:53→11:34)
[2020-02-13 06:24] LABS: CARBON DIOXIDE,CO2 19.2 mmol/L (21.0-32.0); POTASSIUM,K 4.7 mmol/L (3.5-5.1)
[2020-02-13] MEDS ORDERED: FLU VACC QS2020(65UP)/MF59C/PF 60 MCG/0.5 ML Syringe IM ONE (10:00)
[2020-02-13] MEDS ORDERED: LORazepam 0.5 MG Tab PO PRN (11:47)
[2020-02-13] MEDS: Morphine 10 MG/0.5 ML Oral Syringe SL PRN (13:35)
--- NOTE | 2020-02-13 15:44 | PCM.PN ---
<Joanna Guadarrama - Last Filed: 02/13/20 15:37> - General Info Date of Service: 02/13/20 Admission Dx/Problem (Free Text): Admission Diagnosis/Problem Subjective Update: Bernie tripp is our alisha 74-year-old female with a significant past medical history of dementia, she was previously tested positive for Covid January 21, 2020. Family feels that since she has not been doing well, has been more bedbound, is not eating and appears to be more weak and dehydrated. Overnight patient became agitated and pulled out her IV line, since there have been multiple times however unable to get appropriate access. Patient is otherwise in no acute distress was examined at bedside, appeared to be lying in bed resting. Has had very minimal to eat since admission. Caregiver granddaughter is accompanying patient. All questions and concerns were addressed at bedside, as we discussed goals of care and facilitating hospice care with caregiver granddaughter as well as daughter Jazmín over the phone. Functional Status: Reports: Pain Controlled - Review of Systems General: Reports: No Symptoms HEENT: Reports: No Symptoms Pulmonary: Reports: No Symptoms Cardiovascular: Reports: No Symptoms Gastrointestinal: Reports: No Symptoms Genitourinary: Reports: No Symptoms Musculoskeletal: Reports: No Symptoms Skin: Reports: No Symptoms Neurological: Reports: No Symptoms Psychiatric: Reports: Confusion, Agitation - Patient Data Vitals - Most Recent: Last Vital Signs Temp 97.2 F 02/13/20 11:37 Pulse 81 02/13/20 11:37 Resp 17 02/13/20 11:37 BP 129/62 02/13/20 11:37 Pulse Ox 93 L 02/13/20 11:37 Weight - Most Recent: 53.977 kg I&O - Last 24 Hours: Intake & Output 02/13/20 02/13/20 02/13/20 06:59 14:59 22:59 Intake Total 1200 Output Total 450 Balance 750 Lab Results Last 24 Hours: Laboratory Results - last 24 hr 02/12/20 02/12/20 02/13/20 Range/Units 15:46 17:33 05:50 WBC 6.60 (4.0-11.0) K/uL RBC 3.58 L (4.30-5.90) M/uL Hgb 10.1 L (12.0-16.0) g/dL Hct 32.5 L (36.0-46.0) % MCV 90.8 (80.0-98.0) fL MCH 28.2 (27.0-32.0) pg MCHC 31.1 (31.0-37.0) g/dL RDW Std Deviation 46.2 (28.0-62.0) fl RDW Coeff of Dyan 14 (11.0-15.0) % Plt Count 288 (150-400) K/uL MPV 11.20 (7.40-12.00) fL Neut % (Auto) 52.3 (48.0-80.0) % Lymph % (Auto) 33.6 (16.0-40.0) % [place] % (Auto) 8.2 (0.0-15.0) % Eos % (Auto) 5.3 (0.0-7.0) % Baso % (Auto) 0.6 (0.0-1.5) % Neut # (Auto) 3.5 (1.4-5.7) K/uL Lymph # (Auto) 2.2 (0.6-2.4) K/uL [place] # (Auto) 0.5 (0.0-0.8) K/uL Eos # (Auto) 0.4 (0.0-0.7) K/uL Baso # (Auto) 0.0 (0.0-0.1) K/uL Nucleated RBC % 0.0 /100WBC Nucleated RBCs # 0 K/uL Sodium (136-145) mmol/L Potassium 4.9 (3.5-5.1) mmol/L Chloride (98-107) mmol/L Carbon Dioxide (21.0-32.0) mmol/L BUN (7.0-18.0) mg/dL Creatinine (0.6-1.0) mg/dL Est Cr Clr Drug Dosing mL/min Estimated GFR (MDRD) ml/min Glucose (74-106) mg/dL POC Glucose 80 (60-110) mg/dL Calcium (8.5-10.1) mg/dL Magnesium 1.8 (1.8-2.4) mg/dL Total Bilirubin (0.2-1.0) mg/dL AST (15-37) IU/L ALT (14-63) IU/L Alkaline Phosphatase (46-116) U/L Total Protein (6.4-8.2) g/dL Albumin (3.4-5.0) g/dL Globulin (2.6-4.0) g/dL Albumin/Globulin Ratio (0.9-1.6) 02/13/20 02/13/20 Range/Units 05:50 06:41 WBC (4.0-11.0) K/uL RBC (4.30-5.90) M/uL Hgb (12.0-16.0) g/dL Hct (36.0-46.0) % MCV (80.0-98.0) fL MCH (27.0-32.0) pg MCHC (31.0-37.0) g/dL RDW Std Deviation (28.0-62.0) fl RDW Coeff of Dyan (11.0-15.0) % Plt Count (150-400) K/uL MPV (7.40-12.00) fL Neut % (Auto) (48.0-80.0) % Lymph % (Auto) (16.0-40.0) % [place] % (Auto) (0.0-15.0) % Eos % (Auto) (0.0-7.0) % Baso % (Auto) (0.0-1.5) % Neut # (Auto) (1.4-5.7) K/uL Lymph # (Auto) (0.6-2.4) K/uL [place] # (Auto) (0.0-0.8) K/uL Eos # (Auto) (0.0-0.7) K/uL Baso # (Auto) (0.0-0.1) K/uL Nucleated RBC % /100WBC Nucleated RBCs # K/uL Sodium 145 (136-145) mmol/L Potassium 4.7 (3.5-5.1) mmol/L Chloride 112 H (98-107) mmol/L Carbon Dioxide 19.2 L (21.0-32.0) mmol/L BUN 47 H (7.0-18.0) mg/dL Creatinine 2.1 H (0.6-1.0) mg/dL Est Cr Clr Drug Dosing 19.42 mL/min Estimated GFR (MDRD) 22.9 ml/min Glucose 91 (74-106) mg/dL POC Glucose 81 (60-110) mg/dL Calcium 9.4 (8.5-10.1) mg/dL Magnesium (1.8-2.4) mg/dL Total Bilirubin 0.4 (0.2-1.0) mg/dL AST 19 (15-37) IU/L ALT 18 (14-63) IU/L Alkaline Phosphatase 94 (46-116) U/L Total Protein 6.9 (6.4-8.2) g/dL Albumin 3.0 L (3.4-5.0) g/dL Globulin 3.9 (2.6-4.0) g/dL Albumin/Globulin Ratio 0.8 L (0.9-1.6) Med Orders - Current: Current Medications Acetaminophen (Tylenol) 650 mg PO Q4H PRN PRN Reason: Pain Last Admin: 02/12/20 22:30 Dose: 650 mg Documented by: Lorazepam (Ativan) 0.5 mg PO Q6H PRN PRN Reason: Agitation Last Admin: 02/13/20 13:36 Dose: 0.5 mg Documented by: Morphine Sulfate (Morphine 10 Mg/0.5 Ml Oral Syringe) 3 mg SL Q4H PRN PRN Reason: Pain Last Admin: 02/13/20 13:35 Dose: 3 mg Documented by: Discontinued Medications Calcium Gluconate (Calcium Gluconate) 1 gm IV ONETIME ONE Stop: 02/11/20 19:46 Last Admin: 02/11/20 19:52 Dose: 1 gm Documented by: Dextrose/Water (Dextrose 50% In Water) 50 ml IV ASDIRECTED PRN PRN Reason: Hypoglycemia Dextrose/Water (Dextrose 50% In Water) 50 ml IVPUSH ONETIME ONE Stop: 02/11/20 19:45 Last Admin: 02/11/20 19:53 Dose: 50 ml Documented by: Glucagon (Glucagen) 1 mg IM ASDIRECTED PRN PRN Reason: Hypoglycemia Haloperidol Lactate (Haldol) 5 mg IM ONETIME ONE Stop: 02/11/20 20:36 Last Admin: 02/11/20 20:40 Dose: 5 mg Documented by: Heparin Sodium (Porcine) (Heparin Sodium) 5,000 units SUBCUT Q12H [facility] Last Admin: 02/13/20 01:30 Dose: 5,000 units Documented by: Sodium Chloride (Normal Saline) 1,000 mls @ 999 mls/hr IV .Bolus ONE Stop: 02/11/20 20:43 Last Admin: 02/11/20 19:52 Dose: 999 mls/hr Documented by: Sodium Chloride (Normal Saline) 1,000 mls @ 125 mls/hr IV ASDIRECTED [facility] Last Admin: 02/12/20 09:21 Dose: 125 mls/hr Documented by: Levofloxacin/Dextrose 750 mg/ (Premix) 150 mls @ 100 mls/hr IV ONETIME ONE Stop: 02/12/20 02:29 Last Admin: 02/12/20 00:51 Dose: 100 mls/hr Documented by: Levofloxacin/Dextrose 500 mg/ (Premix) 100 mls @ 100 mls/hr IV Q48H [facility] Dextrose/Sodium Chloride (Dextrose 5%-1/2 Ns) 1,000 mls @ 125 mls/hr IV Q8H [facility] Last Admin: 02/13/20 11:34 Dose: Not Given Documented by: Fluconazole/Sodium Chloride (200 mg/ Premix) 100 mls @ 100 mls/hr IV 02/12/20@1200 ONE Stop: 02/12/20 12:59 Last Admin: 02/12/20 12:07 Dose: 100 mls/hr Documented by: Influenza Virus Vaccine (Pharmacy To Dose - Influenza Vaccine) 1 each IM ONETIME ONE Stop: 02/12/20 08:01 Last Admin: 02/12/20 19:27 Dose: Not Given Documented by: Influenza Virus Vaccine (Fluad Quad [id number] Syringe) 60 mcg IM .ONCE ONE Stop: 02/12/20 09:01 Last Admin: 02/12/20 19:27 Dose: Not Given Documented by: Influenza Virus Vaccine (Fluad Quad [id number] Syringe) 60 mcg IM .ONCE ONE Stop: 02/13/20 10:01 Last Admin: 02/13/20 14:42 Dose: Not Given Documented by: Insulin Human Regular (Novolin R) 10 unit IVPUSH ONETIME ONE; Protocol Stop: 02/11/20 19:44 Last Admin: 02/11/20 19:54 Dose: 10 units Documented by: Lorazepam (Ativan) 1 mg IVPUSH ONETIME ONE Stop: 02/11/20 20:08 Last Admin: 02/11/20 20:12 Dose: 1 mg Documented by: Lorazepam (Ativan) 1 mg IVPUSH ONETIME ONE Stop: 02/12/20 21:56 Last Admin: 02/12/20 22:30 Dose: 1 mg Documented by: Sodium Chloride (Saline Flush) 10 ml FLUSH ASDIRECTED PRN PRN Reason: Keep Vein Open Last Admin: 02/11/20 18:13 Dose: 10 ml Documented by: Sodium Chloride (Saline Flush) 2.5 ml FLUSH ASDIRECTED PRN PRN Reason: Keep Vein Open Last Admin: 02/11/20 18:13 Dose: 2.5 ml Documented by: - Exam General: Alert, Cooperative, No Acute Distress. No: Oriented HEENT: Pupils Equal, Pupils Reactive, Mucous Membr. Moist/[place] Neck: Supple, Trachea Midline, No JVD. No: Lymphadenopathy, Thyromegaly Lungs: Clear to Auscultation, Normal Respiratory Effort Cardiovascular: Regular Rate, Regular Rhythm GI/Abdominal Exam: Normal Bowel Sounds, Soft, Non-Tender, No Organomegaly, No Distention, No Mass Extremities: Normal Inspection, Normal Range of Motion, Non-Tender, No Pedal Edema, Normal Capillary Refill Peripheral Pulses: 2+: Radial (L), Radial (R), Dorsalis Pedis (L), Dorsalis Pedis (R) Skin: Warm, Dry, Intact Psy/Mental Status: Alert ( ), Other (AOx0) Sepsis Event Note - Evaluation Sepsis Screening Result: No Definite Risk - Focused Exam Vital Signs: Vital Signs Temp Pulse Resp BP Pulse Ox 02/13/20 11:37 97.2 F 81 17 129/62 93 L 02/13/20 09:30 98 F 02/13/20 08:27 96.2 F L 81 18 100/58 L 92 L - Problem List & Annotations (1) JULIUS (acute kidney injury) SNOMED Code(s): 63677347, 26581199 Code(s): N17.9 - ACUTE KIDNEY FAILURE, UNSPECIFIED Status: Acute (2) Dehydration SNOMED Code(s): 14130753 Code(s): E86.0 - DEHYDRATION Status: Acute (3) COVID-19 SNOMED Code(s): 637087268 Code(s): U07.1 - COVID-19 Status: Acute (4) Dementia SNOMED Code(s): 10946110 Code(s): F03.90 - UNSPECIFIED DEMENTIA WITHOUT BEHAVIORAL DISTURBANCE Status: Acute (5) Hyperkalemia SNOMED Code(s): 87472994 Code(s): E87.5 - HYPERKALEMIA Status: Acute - Problem List Review Problem List Initiated/Reviewed/Updated: Yes - My Orders Last 24 Hours: My Active Orders 02/13/20 11:47 LORazepam [Ativan] 0.5 mg PO Q6H PRN 02/13/20 11:49 Morphine [Morphine 10 MG/0.5 ML Oral Syringe] 3 mg SL Q4H PRN - Plan Plan:: Patient is a 74 y/o female admitted for general debility post covid with generalized weakness, dehydration, acute on chronic kidney injury and possible pneumonia. 1.Post Covid pneumonia: -Chest x-ray demonstrated new coarse interstitial opacities bilaterally We were treating with Levaquin renally dosed due to JULIUS. However, due to recent change in care management and transition to hospice care per patient's family wishes we will discontinue all treatments. 2. Hyperkalemia: Resolved Most recent potassium 4.7 3. JULIUS: Improved BUN 47, creatinine 2.1; continue with oral hydration per patient request. Avoid nephrotoxic agents 4. Dehydration causing electrolyte abnormalities: Improved -Hypernatremia resolved 145 today, hyperchloremia improved 112, Disposition: Tomorrow morning per hospice consult/arrangements and family wishes. In the interim goal of care is to keep patient was comfortable as possible. At this time we will withhold all treatments but provide comfort measures such as 0.5 mg of Ativan every 6 hours for agitation and 3 mg of sublingual morphine every 4 hours for pain. Upon discharge will adjust morphine dose to 5 mg every 3 hours. <Sebastien Hastings - Last Filed: 02/15/20 10:15> - Patient Data Vitals - Most Recent: Last Vital Signs Temp 36.4 C 02/13/20 23:00 Pulse 96 02/13/20 23:00 Resp 18 02/13/20 23:00 BP 164/72 H 02/13/20 23:00 Pulse Ox 97 02/13/20 23:00 Med Orders - Current: Current Medications Discontinued Medications Acetaminophen (Tylenol) 650 mg PO Q4H PRN PRN Reason: Pain Last Admin: 02/12/20 22:30 Dose: 650 mg Documented by: Calcium Gluconate (Calcium Gluconate) 1 gm IV ONETIME ONE Stop: 02/11/20 19:46 Last Admin: 02/11/20 19:52 Dose: 1 gm Documented by: Dextrose/Water (Dextrose 50% In Water) 50 ml IV ASDIRECTED PRN PRN Reason: Hypoglycemia Dextrose/Water (Dextrose 50% In Water) 50 ml IVPUSH ONETIME ONE Stop: 02/11/20 19:45 Last Admin: 02/11/20 19:53 Dose: 50 ml Documented by: Glucagon (Glucagen) 1 mg IM ASDIRECTED PRN PRN Reason: Hypoglycemia Haloperidol Lactate (Haldol) 5 mg IM ONETIME ONE Stop: 02/11/20 20:36 Last Admin: 02/11/20 20:40 Dose: 5 mg Documented by: Heparin Sodium (Porcine) (Heparin Sodium) 5,000 units SUBCUT Q12H [facility] Last Admin: 02/13/20 01:30 Dose: 5,000 units Documented by: Sodium Chloride (Normal Saline) 1,000 mls @ 999 mls/hr IV .Bolus ONE Stop: 02/11/20 20:43 Last Admin: 02/11/20 19:52 Dose: 999 mls/hr Documented by: Sodium Chloride (Normal Saline) 1,000 mls @ 125 mls/hr IV ASDIRECTED [facility] Last Admin: 02/12/20 09:21 Dose: 125 mls/hr Documented by: Levofloxacin/Dextrose 750 mg/ (Premix) 150 mls @ 100 mls/hr IV ONETIME ONE Stop: 02/12/20 02:29 Last Admin: 02/12/20 00:51 Dose: 100 mls/hr Documented by: Levofloxacin/Dextrose 500 mg/ (Premix) 100 mls @ 100 mls/hr IV Q48H [facility] Dextrose/Sodium Chloride (Dextrose 5%-1/2 Ns) 1,000 mls @ 125 mls/hr IV Q8H [facility] Last Admin: 02/13/20 11:34 Dose: Not Given Documented by: Fluconazole/Sodium Chloride (200 mg/ Premix) 100 mls @ 100 mls/hr IV 02/12/20@1200 ONE Stop: 02/12/20 12:59 Last Admin: 02/12/20 12:07 Dose: 100 mls/hr Documented by: Influenza Virus Vaccine (Pharmacy To Dose - Influenza Vaccine) 1 each IM ONETIME ONE Stop: 02/12/20 08:01 Last Admin: 02/12/20 19:27 Dose: Not Given Documented by: Influenza Virus Vaccine (Fluad Quad Syringe) 60 mcg IM .ONCE ONE Stop: 02/12/20 09:01 Last Admin: 02/12/20 19:27 Dose: Not Given Documented by: Influenza Virus Vaccine (Fluad Quad Syringe) 60 mcg IM .ONCE ONE Stop: 02/13/20 10:01 Last Admin: 02/13/20 14:42 Dose: Not Given Documented by: Insulin Human Regular (Novolin R) 10 unit IVPUSH ONETIME ONE; Protocol Stop: 02/11/20 19:44 Last Admin: 02/11/20 19:54 Dose: 10 units Documented by: Lorazepam (Ativan) 1 mg IVPUSH ONETIME ONE Stop: 02/11/20 20:08 Last Admin: 02/11/20 20:12 Dose: 1 mg Documented by: Lorazepam (Ativan) 1 mg IVPUSH ONETIME ONE Stop: 02/12/20 21:56 Last Admin: 02/12/20 22:30 Dose: 1 mg Documented by: Lorazepam (Ativan) 0.5 mg PO Q6H PRN PRN Reason: Agitation Last Admin: 02/13/20 13:36 Dose: 0.5 mg Documented by: Morphine Sulfate (Morphine 10 Mg/0.5 Ml Oral Syringe) 3 mg SL Q4H PRN PRN Reason: Pain Last Admin: 02/14/20 08:50 Dose: 3 mg Documented by: Sodium Chloride (Saline Flush) 10 ml FLUSH ASDIRECTED PRN PRN Reason: Keep Vein Open Last Admin: 02/11/20 18:13 Dose: 10 ml Documented by: Sodium Chloride (Saline Flush) 2.5 ml FLUSH ASDIRECTED PRN PRN Reason: Keep Vein Open Last Admin: 02/11/20 18:13 Dose: 2.5 ml Documented by: - Plan Plan:: I have seen and evaluated the patient and agree with the residents note unless specified in my note
[2020-02-13 23:02] VITALS: BP 164/72; PULSE 96
[2020-02-14] MEDS ORDERED: Levofloxacin/Dextrose 5%-Water 500 MG in Premix Bag 1 BAG IV SCH (01:00)
[2020-02-14] MEDS: Morphine 10 MG/0.5 ML Oral Syringe SL PRN (08:50)
--- NOTE | 2020-02-14 09:49 | PCM.DCSUM1 ---
<Joanna Guadarrama - Last Filed: 02/14/20 12:50> Discharge Summary - Hospital Course Brief History: 74-year-old female with a history of significant Alzheimer's disease and renal insufficiency who lives at home with her granddaughter who is her primary caregiver. She is presenting with worsening altered mental status poor p.o. intake generalized weakness and confusion. The patient and the rest of her family developed COVID-19 at the end of December. The patient tested positive on January 20. She was seen in ER on the she ended up being discharged with oxygen. She has remained on 4 L nasal cannula since that time though family notes it is quite difficult to maintain the nasal cannula on the patient. They have noticed a gradual decline since then with very minimal p.o. intake minimal food and very minimal fluids. This is associated with worsening generalized weakness patient is now bedbound and has been for the last 5 days. Patient is also had significantly more confusion. No vomiting no fever patient is complaining of left lateral rib discomfort particularly with coughing. No alleviating factors or associated symptoms. Diagnosis: Stroke: No Modified [place] Scale: Mod.Sev.Disability ;Unable to Walk/Attend Bodily Needs W/O Assistance Modified [place] Scale Score: 4 - Discharge Data Discharge Date: 02/14/20 Discharge Disposition: DC/Tfer to Hospice - Home 50 Condition: Critical - Referral to Home Health Reason for Homebound Status: Home hospice care/comfort measures per patient's family wishes Primary Care Physician: PCP Not In Area - Discharge Diagnosis/Problem(s) (1) JULIUS (acute kidney injury) SNOMED Code(s): 87270470, 35163787 ICD Code: N17.9 - ACUTE KIDNEY FAILURE, UNSPECIFIED Status: Acute (2) Dehydration SNOMED Code(s): 53129958 ICD Code: E86.0 - DEHYDRATION Status: Acute (3) COVID-19 SNOMED Code(s): 087655204 ICD Code: U07.1 - COVID-19 Status: Acute (4) Dementia SNOMED Code(s): 11265268 ICD Code: F03.90 - UNSPECIFIED DEMENTIA WITHOUT BEHAVIORAL DISTURBANCE Status: Acute (5) Hyperkalemia SNOMED Code(s): 58285652 ICD Code: E87.5 - HYPERKALEMIA Status: Acute - Patient Summary/Data Consults: Consultations 02/13/20 10:35 Consult to Hospice [CONS] Routine Hospital Course: Patient is a alisha 74-year-old female with an unfortunate history of Alzh eimer's dementia, as per family recently her condition has declined since having Covid January 21, 2020. Patient continues to remain more bedridden, lethargic, refusing to eat or drink very much. Initially patient came in with significant dehydration, patient was appropriately hydrated and given antibiotics for noted lung opacities which were new on her chest x-ray. Patient was monitored on telemetry for hyperkalemia, which was corrected prior to discharge. During her stay hospice care was also consulted, as well as appropriate discussions with family. Family felt that patient would like to go home and focus on being kept comfortable. Therefore, transfer was set up as well as hospice care. Patient was sent home with additional days of antibiotics if she tolerates. Furthermore, morphine and Ativan were provided for pain and agitation. From this point forward hospice care will make any additional treatment plan adjustments. - Patient Instructions Diet: Usual Diet as Tolerated Activity: As Tolerated Driving: Do Not Drive Other/Special Instructions: Patient is now under comfort measures therefore if patient does not tolerate her home oral medications may consider discontinuing. Patient will be sent home with 2 mg morphine every 4 hours for pain and 0.5 of Ativan every 6 hours for agitation. Going forward hospice care can adjust medications according to the recommendations. - Discharge Plan *PRESCRIPTION DRUG MONITORING PROGRAM REVIEWED*: Not Applicable *COPY OF PRESCRIPTION DRUG MONITORING REPORT IN PATIENT TO[place]ITO: Not Applicable Prescriptions/Med Rec: LORazepam [Ativan] 0.5 mg PO Q6H PRN 3 Days #12 tablet PRN Reason: Agitation levoFLOXacin [Levaquin] 750 mg PO DAILY 4 Days #4 tab Morphine [Morphine 10 MG/0.5 ML Oral Syringe] 2 mg SL Q4H PRN 3 Days #18 syringe PRN Reason: Pain Home Medications: Home Meds Aspirin [Halfprin] 1 tab PO DAILY 09/09/19 [History] Calcium Carbonate/Vitamin D3 [Calcium 600Mg-D3 400 Unit Sfgl] 1 tab PO DAILY 09/09/19 [History] Diclofenac Sodium [Voltaren] 1 dose TOP ASDIRECTED PRN 09/09/19 [History] Furosemide [Lasix] 20 mg PO DAILY 09/09/19 [History] Gabapentin [Neurontin] 1 cap PO BEDTIME 09/09/19 [History] Memantine [Namenda] 5 mg PO DAILY 09/09/19 [History] Mirtazapine 1 tab PO BEDTIME 09/09/19 [History] Budesonide [Pulmicort] 0.5 mg IH BID 02/11/20 [History] Donepezil HCl 20 mg PO BEDTIME 02/11/20 [History] Dorzolamide/Timolol/Pf [Dorzolamide-Timolol 2%-0.5%] 1 drop EYEBOTH BID 02/11/20 [History] Doxycycline [Vibramycin] 1 cap PO BID 02/11/20 [History] Fluconazole [Diflucan] 1 tab PO DAILY 02/11/20 [History] Nystatin 1 applic TOP TID 02/11/20 [History] levalbuterol HCL [Levalbuterol HCl] 1 ampule INH Q6HR PRN 02/11/20 [History] ramipriL [Ramipril] 2.5 mg PO DAILY 02/11/20 [History] LORazepam [Ativan] 0.5 mg PO Q6H PRN 3 Days #12 tablet 02/13/20 [Rx] Morphine [Morphine 10 MG/0.5 ML Oral Syringe] 2 mg SL Q4H PRN 3 Days #18 syringe 02/13/20 [Rx] levoFLOXacin [Levaquin] 750 mg PO DAILY 4 Days #4 tab 02/13/20 [Rx] Oxygen Therapy Mode: Room Air Patient Handouts: COVID-19 Frequently Asked Questions, COVID-19, Morphine oral solution, COVID-19: How to Protect Yourself and Others - CDC, Levofloxacin tablets, Lorazepam tablets, Prevent the Spread of COVID-19 if You Are Sick - [facility] Referrals: Mary Andres MD [Physician] - 02/26/20 9:00 am - Discharge Summary/Plan Comment DC Time >30 min.: Yes Discharge Summary/Plan Comment: Patient discharged home this morning with appropriate medications for underlying pneumonia, as well as comfort measures for pain and agitation. Hospice care has been consulted and will be managing this patient going forward. - Patient Data Vitals - Most Recent: Last Vital Signs Temp 97.5 F 02/13/20 23:00 Pulse 96 02/13/20 23:00 Resp 18 02/13/20 23:00 BP 164/72 H 02/13/20 23:00 Pulse Ox 97 02/13/20 23:00 Weight - Most Recent: 53.977 kg I&O - Last 24 hours: Intake & Output 02/13/20 02/14/20 02/14/20 22:59 06:59 14:59 Intake Total 100 50 20 Output Total 300 0 Balance 100 -250 20 Med Orders - Current: Current Medications Discontinued Medications Acetaminophen (Tylenol) 650 mg PO Q4H PRN PRN Reason: Pain Last Admin: 02/12/20 22:30 Dose: 650 mg Documented by: Calcium Gluconate (Calcium Gluconate) 1 gm IV ONETIME ONE Stop: 02/11/20 19:46 Last Admin: 02/11/20 19:52 Dose: 1 gm Documented by: Dextrose/Water (Dextrose 50% In Water) 50 ml IV ASDIRECTED PRN PRN Reason: Hypoglycemia Dextrose/Water (Dextrose 50% In Water) 50 ml IVPUSH ONETIME ONE Stop: 02/11/20 19:45 Last Admin: 02/11/20 19:53 Dose: 50 ml Documented by: Glucagon (Glucagen) 1 mg IM ASDIRECTED PRN PRN Reason: Hypoglycemia Haloperidol Lactate (Haldol) 5 mg IM ONETIME ONE Stop: 02/11/20 20:36 Last Admin: 02/11/20 20:40 Dose: 5 mg Documented by: Heparin Sodium (Porcine) (Heparin Sodium) 5,000 units SUBCUT Q12H [facility] Last Admin: 02/13/20 01:30 Dose: 5,000 units Documented by: Sodium Chloride (Normal Saline) 1,000 mls @ 999 mls/hr IV .Bolus ONE Stop: 02/11/20 20:43 Last Admin: 02/11/20 19:52 Dose: 999 mls/hr Documented by: Sodium Chloride (Normal Saline) 1,000 mls @ 125 mls/hr IV ASDIRECTED [facility] Last Admin: 02/12/20 09:21 Dose: 125 mls/hr Documented by: Levofloxacin/Dextrose 750 mg/ (Premix) 150 mls @ 100 mls/hr IV ONETIME ONE Stop: 02/12/20 02:29 Last Admin: 02/12/20 00:51 Dose: 100 mls/hr Documented by: Levofloxacin/Dextrose 500 mg/ (Premix) 100 mls @ 100 mls/hr IV Q48H [facility] Dextrose/Sodium Chloride (Dextrose 5%-1/2 Ns) 1,000 mls @ 125 mls/hr IV Q8H [facility] Last Admin: 02/13/20 11:34 Dose: Not Given Documented by: Fluconazole/Sodium Chloride (200 mg/ Premix) 100 mls @ 100 mls/hr IV 02/12/20@1200 ONE Stop: 02/12/20 12:59 Last Admin: 02/12/20 12:07 Dose: 100 mls/hr Documented by: Influenza Virus Vaccine (Pharmacy To Dose - Influenza Vaccine) 1 each IM ONETIME ONE Stop: 02/12/20 08:01 Last Admin: 02/12/20 19:27 Dose: Not Given Documented by: Influenza Virus Vaccine (Fluad Quad Syringe) 60 mcg IM .ONCE ONE Stop: 02/12/20 09:01 Last Admin: 02/12/20 19:27 Dose: Not Given Documented by: Influenza Virus Vaccine (Fluad Quad Syringe) 60 mcg IM .ONCE ONE Stop: 02/13/20 10:01 Last Admin: 02/13/20 14:42 Dose: Not Given Documented by: Insulin Human Regular (Novolin R) 10 unit IVPUSH ONETIME ONE; Protocol Stop: 02/11/20 19:44 Last Admin: 02/11/20 19:54 Dose: 10 units Documented by: Lorazepam (Ativan) 1 mg IVPUSH ONETIME ONE Stop: 02/11/20 20:08 Last Admin: 02/11/20 20:12 Dose: 1 mg Documented by: Lorazepam (Ativan) 1 mg IVPUSH ONETIME ONE Stop: 02/12/20 21:56 Last Admin: 02/12/20 22:30 Dose: 1 mg Documented by: Lorazepam (Ativan) 0.5 mg PO Q6H PRN PRN Reason: Agitation Last Admin: 02/13/20 13:36 Dose: 0.5 mg Documented by: Morphine Sulfate (Morphine 10 Mg/0.5 Ml Oral Syringe) 3 mg SL Q4H PRN PRN Reason: Pain Last Admin: 02/14/20 08:50 Dose: 3 mg Documented by: Sodium Chloride (Saline Flush) 10 ml FLUSH ASDIRECTED PRN PRN Reason: Keep Vein Open Last Admin: 02/11/20 18:13 Dose: 10 ml Documented by: Sodium Chloride (Saline Flush) 2.5 ml FLUSH ASDIRECTED PRN PRN Reason: Keep Vein Open Last Admin: 02/11/20 18:13 Dose: 2.5 ml Documented by: <Sebastien Hastings - Last Filed: 02/15/20 10:14> Discharge Summary - Referral to Home Health Primary Care Physician: PCP Not In Area - Patient Summary/Data Consults: Consultations 02/13/20 10:35 Consult to Hospice [CONS] Routine - Discharge Summary/Plan Comment Discharge Summary/Plan Comment: I have seen and evaluated the patient and agree with the residents note unless specified in my note - Patient Data Vitals - Most Recent: Last Vital Signs Temp 36.4 C 02/13/20 23:00 Pulse 96 02/13/20 23:00 Resp 18 02/13/20 23:00 BP 164/72 H 02/13/20 23:00 Pulse Ox 97 02/13/20 23:00 Med Orders - Current: Current Medications Discontinued Medications Acetaminophen (Tylenol) 650 mg PO Q4H PRN PRN Reason: Pain Last Admin: 02/12/20 22:30 Dose: 650 mg Documented by: Calcium Gluconate (Calcium Gluconate) 1 gm IV ONETIME ONE Stop: 02/11/20 19:46 Last Admin: 02/11/20 19:52 Dose: 1 gm Documented by: Dextrose/Water (Dextrose 50% In Water) 50 ml IV ASDIRECTED PRN PRN Reason: Hypoglycemia Dextrose/Water (Dextrose 50% In Water) 50 ml IVPUSH ONETIME ONE Stop: 02/11/20 19:45 Last Admin: 02/11/20 19:53 Dose: 50 ml Documented by: Glucagon (Glucagen) 1 mg IM ASDIRECTED PRN PRN Reason: Hypoglycemia Haloperidol Lactate (Haldol) 5 mg IM ONETIME ONE Stop: 02/11/20 20:36 Last Admin: 02/11/20 20:40 Dose: 5 mg Documented by: Heparin Sodium (Porcine) (Heparin Sodium) 5,000 units SUBCUT Q12H [facility] Last Admin: 02/13/20 01:30 Dose: 5,000 units Documented by: Sodium Chloride (Normal Saline) 1,000 mls @ 999 mls/hr IV .Bolus ONE Stop: 02/11/20 20:43 Last Admin: 02/11/20 19:52 Dose: 999 mls/hr Documented by: Sodium Chloride (Normal Saline) 1,000 mls @ 125 mls/hr IV ASDIRECTED [facility] Last Admin: 02/12/20 09:21 Dose: 125 mls/hr Documented by: Levofloxacin/Dextrose 750 mg/ (Premix) 150 mls @ 100 mls/hr IV ONETIME ONE Stop: 02/12/20 02:29 Last Admin: 02/12/20 00:51 Dose: 100 mls/hr Documented by: Levofloxacin/Dextrose 500 mg/ (Premix) 100 mls @ 100 mls/hr IV Q48H [facility] Dextrose/Sodium Chloride (Dextrose 5%-1/2 Ns) 1,000 mls @ 125 mls/hr IV Q8H [facility] Last Admin: 02/13/20 11:34 Dose: Not Given Documented by: Fluconazole/Sodium Chloride (200 mg/ Premix) 100 mls @ 100 mls/hr IV 02/12/20@1200 ONE Stop: 02/12/20 12:59 Last Admin: 02/12/20 12:07 Dose: 100 mls/hr Documented by: Influenza Virus Vaccine (Pharmacy To Dose - Influenza Vaccine) 1 each IM ONE TIME ONE Stop: 02/12/20 08:01 Last Admin: 02/12/20 19:27 Dose: Not Given Documented by: Influenza Virus Vaccine (Fluad Quad 1664-1277 Syringe) 60 mcg IM .ONCE ONE Stop: 02/12/20 09:01 Last Admin: 02/12/20 19:27 Dose: Not Given Documented by: Influenza Virus Vaccine (Fluad Quad 1616-1541 Syringe) 60 mcg IM .ONCE ONE Stop: 02/13/20 10:01 Last Admin: 02/13/20 14:42 Dose: Not Given Documented by: Insulin Human Regular (Novolin R) 10 unit IVPUSH ONETIME ONE; Protocol Stop: 02/11/20 19:44 Last Admin: 02/11/20 19:54 Dose: 10 units Documented by: Lorazepam (Ativan) 1 mg IVPUSH ONETIME ONE Stop: 02/11/20 20:08 Last Admin: 02/11/20 20:12 Dose: 1 mg Documented by: Lorazepam (Ativan) 1 mg IVPUSH ONETIME ONE Stop: 02/12/20 21:56 Last Admin: 02/12/20 22:30 Dose: 1 mg Documented by: Lorazepam (Ativan) 0.5 mg PO Q6H PRN PRN Reason: Agitation Last Admin: 02/13/20 13:36 Dose: 0.5 mg Documented by: Morphine Sulfate (Morphine 10 Mg/0.5 Ml Oral Syringe) 3 mg SL Q4H PRN PRN Reason: Pain Last Admin: 02/14/20 08:50 Dose: 3 mg Documented by: Sodium Chloride (Saline Flush) 10 ml FLUSH ASDIRECTED PRN PRN Reason: Keep Vein Open Last Admin: 02/11/20 18:13 Dose: 10 ml Documented by: Sodium Chloride (Saline Flush) 2.5 ml FLUSH ASDIRECTED PRN PRN Reason: Keep Vein Open Last Admin: 02/11/20 18:13 Dose: 2.5 ml Documented by:
== END 2020-02-14 09:00 | disposition hospice, home (50) | DRG 682 ==
LOC: MW.ED 17:37 → MW.MS 20:37
PROVIDERS: ADMIT Internal Medicine; ATTEND Internal Medicine
DX: N17.9 Acute kidney failure, unspecified (principal); R62.7 Adult failure to thrive; J12.89 Other viral pneumonia; E86.0 Dehydration; I10 Essential (primary) hypertension; G30.9 Alzheimer's disease, unspecified; N28.9 Disorder of kidney and ureter, unspecified; F02.80 Dementia in other diseases classified elsewhere, unspecified severity, without behavioral disturbance, psychotic disturbance, mood disturbance, and anxiety; E87.5 Hyperkalemia; E11.9 Type 2 diabetes mellitus without complications; Z88.8 Allergy status to other drugs, medicaments and biological substances; M19.90 Unspecified osteoarthritis, unspecified site; I12.9 Hypertensive chronic kidney disease with stage 1 through stage 4 chronic kidney disease, or unspecified chronic kidney disease; N18.9 Chronic kidney disease, unspecified; Z51.5 Encounter for palliative care; Z79.52 Long term (current) use of systemic steroids; M54.32 Sciatica, left side; Z86.19 Personal history of other infectious and parasitic diseases; F41.9 Anxiety disorder, unspecified; F32.9 Major depressive disorder, single episode, unspecified; E11.22 Type 2 diabetes mellitus with diabetic chronic kidney disease; Z90.710 Acquired absence of both cervix and uterus; Z79.82 Long term (current) use of aspirin; Z79.899 Other long term (current) drug therapy; Z91.011 Allergy to milk products; Z88.5 Allergy status to narcotic agent; Z91.013 Allergy to seafood; Z91.041 Radiographic dye allergy status; Z87.891 Personal history of nicotine dependence; Z87.442 Personal history of urinary calculi
CPT/HCPCS: 36415; 70450; 71045; 80053; 82962; 83735; 84484; 85025; 93005; J0610; J1815; J2060; J7030; 80048; 81001; 84132; 93010; 99284; A9270-GY; J1450; J1630; J1644; J1956; J7042